=== PATIENT | female | born 1945 | race Caucasian/White ===

== ENCOUNTER 2016-10-08 18:30 | Outpatient (CLI) | payer MEDICARE, OTHER | END 2016-10-08 18:31 | disposition home or self-care (01) | DX: R79.89 Other specified abnormal findings of blood chemistry (principal); R68.89 Other general symptoms and signs; N39.0 Urinary tract infection, site not specified; J11.1 Influenza due to unidentified influenza virus with other respiratory manifestations ==

== ENCOUNTER 2017-03-16 18:30 | Outpatient (CLI) | payer MEDICARE ==
[2017-03-16 20:26] LABS: BILIRUBIN,URINE NEGATIVE (NEGATIVE); PH,URINE >=9.0 PH (5.0-7.5)
[2017-03-16 20:29] LABS: UA w/ MICROSCOPIC CHARGE YES
[2017-03-16 21:13] LABS: UR CULTURE IF IND INDICATED
== END 2017-03-16 18:31 | disposition home or self-care (01) ==
LOC: LAB.R 18:30
DX: N39.0 Urinary tract infection, site not specified (principal)
CPT/HCPCS: 81001; 81003; 87077; 87086

== ENCOUNTER 2017-03-25 07:10 | Outpatient (CLI) | payer MEDICARE ==
[2017-03-25 08:50] LABS: CALCIUM 9.8 mg/dL (8.5-10.3); CREATININE 0.9 mg/dL (0.4-1.0); POTASSIUM 4.5 mmol/L (3.5-5.0)
[2017-03-25 09:04] LABS: BASOPHILS # (AUTO) 0.1 10^3/uL (0.0-0.1); BASOPHILS % (AUTO) 1.2 %; EOSINOPHILS # (AUTO) 0.2 10^3/uL (0.0-0.7); EOSINOPHILS % (AUTO) 4.8 %; HCT - HEMATOCRIT 42.8 % (37.0-47.0); HGB - HEMOGLOBIN 14.2 g/dL (12.0-16.0); LYMPHOCYTES # (AUTO) 1.6 10^3/uL (1.5-3.5); LYMPHOCYTES % (AUTO) 37.1 %; MEAN CORPUSCULAR HEMOGLOBIN 29.8 pg (27.0-31.0); MEAN CORPUSCULAR HGB CONC 33.2 g/dL (32.0-36.0); MEAN CORPUSCULAR VOLUME 89.9 fL (81.0-99.0); MEAN PLATELET VOLUME 7.7 fL (7.9-10.8); MONOCYTES # (AUTO) 0.4 10^3/uL (0.0-1.0); MONOCYTES % (AUTO) 9.5 %; NEUTROPHILS # (AUTO) 2.1 10^3/uL (1.5-6.6); NEUTROPHILS % (AUTO) 47.4 %; NUCLEATED RED BLOOD CELLS AUTO 0.1 /100WBC; RED BLOOD COUNT 4.77 10^6/uL (4.20-5.40); RED CELL DISTRIBUTION WIDTH 13.5 % (12.0-15.0); UNCORRECTED WHITE BLOOD COUNT 4.4 x10^3/uL; WHITE BLOOD COUNT 4.4 x10^3/uL (4.8-10.8)
== END 2017-03-25 07:11 | disposition home or self-care (01) ==
LOC: LAB.R 07:10
DX: R79.89 Other specified abnormal findings of blood chemistry (principal); R68.89 Other general symptoms and signs; D64.9 Anemia, unspecified; N18.9 Chronic kidney disease, unspecified
CPT/HCPCS: 80048; 85025

== ENCOUNTER 2017-04-01 10:50 | Outpatient (CLI) | payer MEDICARE ==
[2017-04-01 11:23] LABS: BILIRUBIN,URINE NEGATIVE (NEGATIVE)
[2017-04-01 13:55] LABS: UR CULTURE IF IND NOT INDICATED; WBC,URINE 0-3 /HPF (0-5)
== END 2017-04-01 10:51 | disposition home or self-care (01) ==
LOC: LAB.R 10:50
PROVIDERS: ATTEND Family Medicine
DX: N39.0 Urinary tract infection, site not specified (principal)
CPT/HCPCS: 81001; 87086

== ENCOUNTER 2017-06-14 10:23 | Observation (INO) | payer MEDICARE, OTHER ==
[2017-06-14] MEDS ORDERED: DEXTROSE 5%-0.45% NACL 1,000 ML IV ONE (10:54)
--- NOTE | 2017-06-14 11:18 | ED Physician Documentation ---
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 71 f lives at [facility] hx strokes and afib on coumadin, blind, has baseline slurred speech found with AMS cool diaphoretic this AM FSBS was 29 per EMS, she was given food (not sure how given AMS) and then oral glucose and FSBS came up to about 80 but other sx persisted and had episodes of bradycardia down to 40 s hypotension no further hx available as pt is altered Review of Systems Unable to obtain: AMS PD PAST MEDICAL HISTORY - Past Medical History Cardiovascular: Atrial fibrillation Respiratory: None Neuro: CVA Endocrine/Autoimmune: Type 1 diabetes GI: None : Incontinence, Chronic bladder infection HEENT: Chronic vision loss Psych: None Musculoskeletal: Osteoarthritis Derm: None - Past Surgical History Past Surgical History: Yes General: 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: Hysterectomy, Breast implants HEENT: Cataracts - Present Medications Home Medications: Ambulatory Orders Medication Instructions Recorded Confirmed Brimonidine 0.15% Ophth Drops 1 drops LEFTEYE TID 01/19/13 04/09/16 [Alphagan P 0.15%] Cetirizine [ZyrTEC] 10 mg PO HS 01/19/13 04/09/16 Levothyroxine Sodium [Synthroid] 88 mcg PO DAILY 01/19/13 04/09/16 Timolol 0.5% Ophth Drops [Timoptic] 1 drops LEFTEYE BID 01/19/13 04/09/16 Warfarin [Coumadin] 0 mg PO SUMOWEFR 01/19/13 04/09/16 Warfarin [Coumadin] 5 mg PO DAILY 01/19/13 04/09/16 Subcutaneous Insulin Pump [Insulin 1 each MC DAILY 06/18/13 04/09/16 Pump] Docusate Sodium [Dss] 200 mg PO BID 03/09/14 04/09/16 Latanoprost 0.005% Ophth Drops 1 drop LEFTEYE QPM 06/20/14 04/09/16 [Xalatan Ophth Drops] Hydrocodone/Acetaminophen [[place] 1 - 2 tab PO Q6H PRN MDD PAIN 02/02/16 04/09/16 5-325 Tablet] Hydrocodone/Acetaminophen [[place] 1 tab PO QPM 02/02/16 04/09/16 5-325 Tablet] Multivitamin W/Minerals [Theragran 1 each PO DAILY 02/02/16 04/09/16 M] Potassium Chloride 20 meq PO TIDWM 02/02/16 04/09/16 Saccharomyces Boulardii [Florastor] 250 mg PO DAILY 03/20/16 04/09/16 Insulin Glargine,Hum.rec.anlog 10 - 18 unit SQ BID 04/09/16 04/09/16 [Lantus] Insulin Lispro [Humalog] 3 unit SUBQ BID 04/09/16 04/09/16 - Allergies Allergies/Adverse Reactions: Allergies Allergy/AdvReac Type Severity Reaction Status Date / Time codeine Allergy Unknown Hallucinati Verified 02/04/16 18:08 ons mites,pollen,horse, cat, Allergy Severe Respiratory Uncoded 02/04/16 18:08 feathers - Social History Does the pt smoke?: No Smoking Status: Never smoker Does the pt drink ETOH?: No Does the pt have substance abuse?: No - Immunizations Immunizations are current?: Yes - POLST Patient has POLST: Yes PD ED PE NORMAL - Vitals Vital signs reviewed: Yes - General General: No: Alert and oriented X 3 - HEENT HEENT: Other (blind per ) - Neck Neck: Supple, no meningeal sign - Cardiac Cardiac: RRR - Respiratory Respiratory: No respiratory distress, Clear bilaterally - Abdomen Abdomen: Soft, Non tender, Other (no insulin pump found to dc, erythema surround umbilicus) - Derm Derm: Other (erytehma around unblicus, [place] soles of feet with some erythema but no open foot/heel ulcers) - Extremities Extremities: Other ([place] edema, had comp socks on) - Neuro Neuro: No: Alert and oriented X 3 (arousable and answers basic questions now) Results - Vitals Vitals: Vital Signs - 24 hr 06/14/17 06/14/17 06/14/17 10:24 12:50 12:51 Temperature 35.5 C L 35.6 C L Heart Rate 61 68 Respiratory 13 14 Rate Blood Pressure 145/78 H 164/78 H O2 Saturation 97 96 Oxygen O2 Source Room air - EKG (time done) 1108 Rhythm: Atrial fibrillation Intervals: No: Normal OR Ischemia: Non specific changes - Labs Labs: Laboratory Tests 06/14/17 06/14/17 06/14/17 11:30 11:30 11:43 WBC 10.9 H RBC 5.24 Hgb 15.4 Hct 46.9 MCV 89.5 MCH 29.5 MCHC 32.9 RDW 14.3 Plt Count 126 L MPV 7.6 L Neut # 8.7 H Lymph # 1.2 L [place] # 0.8 Eos # 0.1 Baso # 0.0 Absolute Nucleated RBC 0.00 Nucleated RBCs 0.0 Whole Blood INR Sodium 137 Potassium 4.3 Chloride 103 Carbon Dioxide 27 Anion Gap 7.0 BUN 21 H Creatinine 1.0 Estimated GFR (MDRD) 55 L Glucose 86 Lactic Acid Calcium 9.9 Total Bilirubin 0.7 AST 18 ALT < 10 L Alkaline Phosphatase 85 Troponin I 0.05 Total Protein 6.9 Albumin 3.7 Globulin 3.2 Albumin/Globulin Ratio 1.2 Lipase 11 L Urine Color Urine Clarity Urine pH Ur Specific [place] Urine Protein Urine Glucose (UA) Urine Ketones Urine Occult Blood Urine Nitrite Urine Bilirubin Urine Urobilinogen Ur Leukocyte Esterase Urine RBC Urine WBC Ur Squamous Epith Cells Urine Bacteria Urine Casts Ur Microscopic Review Urine Culture Comments 06/14/17 06/14/17 06/14/17 11:43 13:15 14:15 WBC RBC Hgb Hct MCV MCH MCHC RDW Plt Count MPV Neut # Lymph # [place] # Eos # Baso # Absolute Nucleated RBC Nucleated RBCs Whole Blood INR 2.5 H Sodium Potassium Chloride Carbon Dioxide Anion Gap BUN Creatinine Estimated GFR (MDRD) Glucose Lactic Acid 1.8 Calcium Total Bilirubin AST ALT Alkaline Phosphatase Troponin I Total Protein Albumin Globulin Albumin/Globulin Ratio Lipase Urine Color YELLOW Urine Clarity HAZY Urine pH 6.[address] 1.015 Urine Protein NEGATIVE Urine Glucose (UA) NEGATIVE Urine Ketones NEGATIVE Urine Occult Blood SMALL H Urine Nitrite NEGATIVE Urine Bilirubin NEGATIVE Urine Urobilinogen 0.2 (NORMAL) Ur Leukocyte Esterase SMALL H Urine RBC 0-5 Urine WBC >25 H Ur Squamous Epith Cells NONE SEEN Urine Bacteria Many H Urine Casts 0-2 Course Granular Ur Microscopic Review INDICATED Urine Culture Comments INDICATED - Rads (name of study) CTH Radiology: See rad report (no acute process, 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) PD MEDICAL DECISION MAKING - ED course ED course: pt blood sugar better but still altered cannot take PO 2/2 AMS so started D5 no futher bradycardia noted in ER got CTH which showed no acute process (but possible meningioma), CXR also no acute, noted elev WBC and borderline lactate, eventually got cath UA and it was + by that time pt was more alert and talkative discussed with pt and her if she might be OK to go back to [facility] on antibiotics and freq FSBS but states she is significantly more confused and altered than her baseline and he does not feel safe to take her back to [facility] and says she has been admitted in the past for similar sx so spoke to hospitalist Dr Barry who agreed to admit Departure - Departure Disposition: ED Place in Observation Clinical Impression: Hypoglycemia, UTI (lower urinary tract infection) Altered mental status Qualifiers: Altered mental status type: unspecified Qualified Code(s): R41.82 - Altered mental status, unspecified Condition: Fair Discharge Date/Time: 06/14/17 16:03
[2017-06-14 11:50] LABS: BASOPHILS % (AUTO) 0.3 %; EOSINOPHILS # (AUTO) 0.1 10^3/uL (0.0-0.7); EOSINOPHILS % (AUTO) 0.9 %; HCT - HEMATOCRIT 46.9 % (37.0-47.0); HGB - HEMOGLOBIN 15.4 g/dL (12.0-16.0); LYMPHOCYTES # (AUTO) 1.2 10^3/uL (1.5-3.5); LYMPHOCYTES % (AUTO) 11.5 %; MEAN CORPUSCULAR HEMOGLOBIN 29.5 pg (27.0-31.0); MEAN CORPUSCULAR HGB CONC 32.9 g/dL (32.0-36.0); MEAN CORPUSCULAR VOLUME 89.5 fL (81.0-99.0); MEAN PLATELET VOLUME 7.6 fL (7.9-10.8); MONOCYTES # (AUTO) 0.8 10^3/uL (0.0-1.0); MONOCYTES % (AUTO) 7.2 %; NEUTROPHILS # (AUTO) 8.7 10^3/uL (1.5-6.6); NEUTROPHILS % (AUTO) 80.1 %; RED BLOOD COUNT 5.24 10^6/uL (4.20-5.40); RED CELL DISTRIBUTION WIDTH 14.3 % (12.0-15.0); UNCORRECTED WHITE BLOOD COUNT 10.9 x10^3/uL; WHITE BLOOD COUNT 10.9 x10^3/uL (4.8-10.8)
[2017-06-14 12:19] LABS: ALBUMIN/GLOBULIN RATIO 1.2 (1.0-2.2); BILIRUBIN,TOTAL 0.7 mg/dL (0.2-1.0); BUN - BLOOD UREA NITROGEN 21 mg/dL (6-20); CALCIUM 9.9 mg/dL (8.5-10.3); CARBON DIOXIDE - CO2 27 mmol/L (21-32); CHLORIDE 103 mmol/L (101-111); GFR - MDRD 55 (>89); GLUCOSE 86 mg/dL (70-100); LIPASE 11 U/L (22-51); POTASSIUM 4.3 mmol/L (3.5-5.0); SODIUM 137 mmol/L (135-145); TOTAL PROTEIN 6.9 g/dL (6.7-8.2)
--- NOTE | 2017-06-14 12:36 | CT Preliminary Report ---
Exam: CT Head W/O IMPRESSION: 1. No evidence of acute intracranial hemorrhage seen, with moderate senescent changes. 2. 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 [facility] SITE ID: [id number]
--- NOTE | 2017-06-14 12:39 | CT Report ---
EXAM: CT HEAD EXAM DATE: 06/14/2017 12:15 PM. CLINICAL HISTORY: Altered mental status on Coumadin. COMPARISON: Previous exam of 02/04/2016. TECHNIQUE: Multiaxial CT images were obtained from the foramen magnum to the vertex. IV contrast: Non e. Reformats: Coronal. In accordance with CT protocol optimization, one or more of the following dose reduction techniques w ere utilized for this exam: automated exposure control, adjustment of mA and/or KV based on patient s ize, or use of iterative reconstructive technique. FINDINGS: Parenchyma: No intraparenchymal hemorrhage. No evidence of mass, midline shift, or CT findings of acu te infarction. Garcia-white differentiation is distinct. Moderate periventricular hypoattenuation seen. Encephalomalacia is seen in the left frontal parietal region suggestive of old infarct. Extraaxial Spaces: Moderate atrophy present. There may be a right parasagittal meningioma measuring 4 .6 mm, best seen on image 20 of series 3. Ventricles: Normal in size and position. Sinuses: Imaged paranasal sinuses, orbits, and mastoids show no significant abnormality. Bones: No evidence of fracture or calvarial defect. Other: None. IMPRESSION: 1. No evidence of acute intracranial hemorrhage seen, with moderate senescent changes. 2. 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 [facility] Referring Provider Line: [phone] SITE ID: [id number]
[2017-06-14 13:21] LABS: BILIRUBIN,URINE NEGATIVE (NEGATIVE)
[2017-06-14 13:22] LABS: UA w/ MICROSCOPIC CHARGE YES
--- NOTE | 2017-06-14 13:27 | XRAY Preliminary Report ---
Exam: XR Chest 1 View IMPRESSION: Minimal central congestion without gross consolidation. [facility] SITE ID: [id number]
--- NOTE | 2017-06-14 13:29 | XRAY Report ---
EXAM: CHEST RADIOGRAPHY EXAM DATE: 06/14/2017 01:07 PM. CLINICAL HISTORY: Hypoglycemia AMS. COMPARISON: Previous exam of 03/09/2014. TECHNIQUE: 1 view. FINDINGS: Lungs/Pleura: Minimal central congestion seen without gross consolidation. Mediastinum: Within exam limitations, cardiomediastinal contour is normal. Other: None. IMPRESSION: Minimal central congestion without gross consolidation. [facility] Referring Provider Line: [phone] SITE ID: [id number]
[2017-06-14 13:30] LABS: UR CULTURE IF IND INDICATED; WBC,URINE >25 /HPF (0-5)
[2017-06-14] MEDS ORDERED: cefTRIAXone 1 GM in SODIUM CHLORIDE 0.9% MINIBAG 100 ML IV STA (13:48)
[2017-06-14] MEDS ORDERED: cefTRIAXone 1 GM VIAL ONE (14:09)
[2017-06-14] MEDS ORDERED: ONDANSETRON ODT 4 MG TABLET TL PRN (14:17)
[2017-06-14] MEDS ORDERED: SODIUM CHLORIDE FLUSH 0.9% 10 ML SYRINGE IVP PRN (14:17)
[2017-06-14] MEDS ORDERED: ONDANSETRON 4 MG/2 ML VIAL IVP PRN (14:17)
[2017-06-14] MEDS ORDERED: ACETAMINOPHEN 325 MG TABLET PO PRN (14:17)
[2017-06-14] MEDS ORDERED: HYDROcod/ACETAM 5/325 MG TABLET PO PRN (14:21)
[2017-06-14] MEDS: POTASSIUM CHLORIDE 20 MEQ TABLET PO SCH (17:35)
[2017-06-14] MEDS: SODIUM CHLORIDE 0.9% 1,000 ML IV SCH (17:36)
[2017-06-14] MEDS: NYSTATIN CREAM 15 GM TUBE TOP SCH (20:32)
[2017-06-14] MEDS: INSULIN ASPART 300 UNIT/3 ML PEN SUBQ SCH (20:35)
[2017-06-14] MEDS ORDERED: LATANOPROST 0.005% OPHTH DROPS ONE (20:43)
[2017-06-14] MEDS ORDERED: BRIMONIDINE 0.15% OPHTH DROPS 5 ML ONE (20:49)
[2017-06-14] MEDS ORDERED: TIMOLOL 0.5% OPHTH DROPS ONE (20:50)
[2017-06-14] MEDS: BRIMONIDINE 0.15% LEFTEYE SCH (20:53)
[2017-06-14] MEDS: TIMOLOL 0.5% LEFTEYE SCH (20:53)
[2017-06-14] MEDS ORDERED: HYDROcod/ACETAM 5/325 MG TABLET PO SCH (21:00)
[2017-06-14] MEDS ORDERED: INSULIN GLARGINE 300 UNIT/3 ML PEN SUBQ SCH (21:00)
[2017-06-14] MEDS ORDERED: CETIRIZINE 10 MG TABLET PO SCH (21:00)
[2017-06-14] MEDS ORDERED: LATANOPROST 0.005% LEFTEYE SCH (21:00)
[2017-06-14] MEDS: SODIUM CHLORIDE FLUSH 0.9% 10 ML SYRINGE IVP SCH (23:32)
--- NOTE | 2017-06-15 00:12 | HISTORY & PHYSICAL EXAMINATION ---
DATE OF ADMISSION: 06/14/2017 PRIMARY CARE PROVIDER: Jaja Kuhn DO. ADMITTING PROVIDER: Emma Barry MD. CHIEF COMPLAINT: Low blood sugar with altered mental status. HISTORY OF PRESENT ILLNESS: The patient is a resident of [facility] . She has lived there as a consequence of her strokes and Charcot joints. She has dysarthria, ataxi a, is unable to ambulate because of the deformities of her right ankle. She initially went from walki ng in a walker to being in a scooter by 2011. With her second stroke in 2011 she is unable to live at home. Her has his own health issues and she has been living at [facility]. She was b rought in by ambulance from [facility] because she was found with altered mental status, cool , diaphoretic. Fasting blood sugar was 29. Somehow they gave her food and then oral glucose and fasti ng glucose came up to about 80. The patient was altered and Dr. Baron gave her more sugar. CT of the head did not show any acute bleeding. Two hours later, the patient is now awake, back to her baselin e. Because of her stroke she has a baseline slow slightly slurred speech with psychomotor delay. It c an sometimes be difficult to get a history out of but when her came to evaluate his , he felt that she was still not back at baseline, especially because she started having some shakes but h e felt that she was still more confused and altered than her baseline and did not feel safe for her t o go back to [facility]. As such, she will be placed in observation to see if she can improve over the n ext 24 hours and then return to [facility]. This unfortunate woman has a history of neurogenic bladder with frequent UTIs. In February 2017 she had Proteus, in August 2016 she had enterococcus, March 2016 enterococcus and staph, February 2016 enterococ cus, January 2015 twice was enterococcus and January 2014 with Escherichia coli. PAST MEDICAL HISTORY: 1. Chronic atrial fibrillation with a CHADS2-VASc score of 6 and is anticoagulated on Coumadin. She p resented in November 2011 because of new acute weakness and fatigue. She was found to be in new onset fi brillation. While she did have an echo with a 2012 visit that is not part of the electronic medical r ecord. 2. Type Diabetes mellitus type 2, controlled, with complications of peripheral neuropathy, nephropath y, and retinopathy. She has developed a right Charcot joint in the right ankle. She has had a right d iabetic foot ulcers as most recently as August 2016 on the plantar surface. 3. 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 In June 2013 she had been increasing her Coumadin use. Unclear why and felt was probably to have a supratherapeutic INR, which resulted i n a spontaneous retinal hemorrhage. Her Coumadin was stopped and she had a vitrectomy and tPA. A week later continued to have hemorrhage and had another injection of tPA. She also has glaucoma. 4. Generalized osteoarthritis. 5. History of strokes. The first stroke in 2001 had no residual. However, by then she was already obe se, suffering the fact the immobility and getting less mobile. In 2011, she presented with sudden dys arthria. Between 2011 and now, she has had increasing ataxia, a neurogenic bladder. She went from [facility] a cane to a walker and then a scooter by 2011. Her could no longer take care of her, and s he has been at a [facility] facility since that time. 6. Hypothyroidism. 7. Hypertension. 8. Chronic kidney disease stage 2 to 3. 9. G2, P2, status post hysterectomy. 10. Chronic UTIs as above. 11. Allergic rhinitis. 12. History of appendectomy. 13. History of breast implants. 14. History of cataracts with bilateral cataract removal. 15. History of gastrointestinal bleeds. She had nausea and coffee ground emesis in February 2015 and was admitted. At that time she was found to be dehydrated from diarrhea and then to be in DKA. She was ag ain admitted for coffee ground emesis in February 2016. This time it was also with sepsis, UTI, and supra therapeutic INR. 16. Clostridium difficile diarrhea. She was admitted in January 2016 for Clostridium difficile diarrhea a nd admitted again later that month for dehydration. 17. Left leg cellulitis with hospitalization in July 2013. She was brought to the hospital after stopping her Coumadin for the vitreous hemorrhage described in July 03, 2013. Cellulitis and swell ing had developed in the left leg. She was initially treated as outpatient antibiotic. One day she wa s stepping and heard a cracking in her ankle and she went to [facility]. She was noted to have w orsening cellulitis and started on outpatient antibiotics and admitted to us. However, the x-ray for the ankle showed a fracture and she was transferred to . While at , they identified nonocclusive DVTs. ALLERGIES: SHE IS ALLERGIC TO CODEINE AND MULTIPLE ENVIRONMENTAL ALLERGENS SUCH DUST MITES, POLLEN , HORSE DANDER, CATS, FEATHERS, ETC. MEDICATIONS: List from [facility] is: 1. Brimonidine ophthalmic drops 0.15% 1 drop left eye. 2. Coumadin 2.5 mg tablet. Unknown doses at this time. Will have to verify at [facility] and will also ask pharmacy. 3. Colace 200 mg p.o. b.i.d. 4. Florastor 250 mg p.o. daily. 5. Insulin pump. 6. Lantus 10-18 units subcu depending on sugar. 7. Hydrocodone with acetaminophen 1-2 tablets every 6 hours as needed for moderate pain, 1 tablet only in the evening fixed dose. 8. Potassium 20 mEq t.i.d. 9. Synthroid 88 mcg daily. 10. Multivitamin tablet daily. 11. Timolol ophthalmic solution 0.5% 1 drop left eye daily. 12. Latanoprost opthalmic solution 1 drop left eye daily. 13. Zyrtec 10 mg p.o. at bedtime. SOCIAL HISTORY: She has been to her for 46 years. They have not lived together since she was placed in a [facility] facility in approximately July 2012. She has 2 children. Betsycorrie han smoked, never drank. FAMILY HISTORY: Brother at age 8 of leukemia, one brother has diabetes and her daughter has diab etes. REVIEW OF SYSTEMS: Unobtainable at this time. While the patient is now awake, able to speak, there is psychomotor slowing that it is very difficult to get. Overall the impression I get is of a morbidly obese female with psychomotor retardation from previous stroke, who is mainly wheelchair bound. She i s completely dependent for activities of daily living at [facility]. She is unable to ambulat e very much because of weight, stroke residual, vision and right ankle pain. She has frequent UTIs. R epetitive perseveration. PHYSICAL EXAMINATION: VITAL SIGNS: On examination, she is seen in the emergency room. Unfortunately, her is not wit h her at this time. She tells me that he has left to go get something to eat. Temperature was 35.5, p ulse is 68, blood pressure 164/78, respirations 14, 96% on room air. GENERAL: She is morbidly obese, lying comfortably in the gurney in room 2 in the emergency room. Ever ything about her is very, very slow with delayed psychomotor movement and speech. She is lying supine in the gurney, and appears calm and in no acute distress. She is not happy to be admitted and tells me that no one should ever be happy about coming into the hospital. HEAD AND NECK: Her pupils are small but reactive to light. The left eye has mild scleral injection of unknown cause, but there is no icterus. Oral mucosa pink and moist. No dryness evident. As long as I look at her directly in the face and she watches me she does not appear to be deaf. Neck is supple. Because of her positioning and difficulty moving her I am not able to assess for JVD, but I do not fe el a goiter and I do not hear a bruit. LUNGS: Coarse upper airway sounds, slow unlabored shallow without crackles, rhonchi, wheezing, or inc reased respiratory effort. CARDIOVASCULAR: PMI is normally placed and I am hearing a regular rate and rhythm, not irregular. No murmur audible. No gallop. ABDOMEN: Obese, soft, nontender with no organomegaly. Quiet, hypoactive bowel sounds. No distention, no rebound or guarding. She has Jennifer in her umbilicus and also when you lift up her pannus in the intertriginous folds. EXTREMITIES: 2+ edema on the right ankle and 1+ edema on the left. Right ankle has chronic deformitie s of Charcot joint. NEUROLOGIC: Neurologically she is alert to person and place. She does not underst and why she was brought here. She does not remember being hypoglycemic and she certainly does not thi nk that she is sick enough to be here right now. When I explained to her that she was shaking when sh e woke up and that she is at risk for UTI she acknowledges that. She can follow 1-step commands, tiki h is give me your right hand or move your left foot, but it takes a very long time for her to process that information and then do it. Right hand dehydrating press operator is weaker than the left hand dehydrating press operator. She is unable to really lift her leg off the bed with the right leg, but is able with the left leg up. On light touch using a cotton swab she is unable to feel me touching the bottoms of her feet or the tops of her fee t. She does feel slight pinprick when I used needles. STUDIES: Sodium is 137, potassium 4.3, BUN 21, creatinine 1. This is her baseline with a BUN of 19-22 and creatinine of 0.9. Random glucose was initially 86. Lactic acid 1.8. Liver enzymes normal. Tropo ronny less than 0.05. Lipase 11. CBC shows a white cell count of 10.9. 3.8 to 4.4 for the last year. Hemoglobin 15.4, hematocrit 46.7, platelets are 126. In the past, platelets have been in the 1 40s to 150s and as low as 106 in September 2016. INR is 2.5. Urinalysis has a small amount of occult bl ood, small amount of leukocyte esterase, greater than 25 white cells. Many bacteria. No squamous epit helial cells. Culture is indicated. IMAGING: Chest x-ray today in the ER has minimal central congestion without gross consolidation. Head CT today in the ER has no acute intraparenchymal hemorrhage, no evidence of mass or midline shif t. Encephalomalacia is seen in the left frontal parietal region suggestive of an old infarct. Moderat e atrophy in the extraaxial spaces with right parasagittal meningioma measuring 4.6 mm. ASSESSMENT/PLAN: 1. Acute metabolic encephalopathy. Attributed to hypoglycemia this morning, now resolved. However, th ere may be a question of infection. The patient has no fever, only mildly elevated white cell count. Urine is positive. We will place in observation. Start IV antibiotics. See if she responds enough to return to her [facility] facility tomorrow. 2. Urinary tract infection. History of neurogenic bladder and frequent UTIs with microbiology as disc ussed above. Since her last enterococcus infection in August 2016 it was sensitive to ampicillin, C IPRO, and Levaquin. She then had Proteus February 2017 and that was sensitive to Ancef, cefepime, ceftria xone. At this time, we will use ceftriaxone. 3. Type 2 diabetes mellitus. Controlled by history. However, with severe complications as above of pe ripheral neuropathy, nephropathy, and retinopathy and Charcot joint. Will continue insulin pump while here. Again, I plan only observation status and hopefully returns tomorrow. 4. Stroke residual of psychomotor retardation, verbal dysarthria, slight right body weakness. This is baseline for her. However, feels it slightly worse than usual. Hopefully, her psychomotor re tardation and strength will return to baseline with overnight hydration and treatment of possible inf ection. 5. Hypertension. Currently controlled. Resume usual medications. 6. DO NOT RESUSCITATE status. This is per the patient. There is a POLST form in Dr. Kuhn's office from 2012, but I am unable to access what it says. 7. Deep venous thrombosis prophylaxis. She is already on Coumadin with adequate INR. JOB #: [id number] EXT JOB #:[id number]
[2017-06-15] MEDS ORDERED: cefTRIAXone 1 GM in SODIUM CHLORIDE 0.9% MINIBAG 100 ML IV ONE (01:00)
[2017-06-15] MEDS ORDERED: cefTRIAXone 1 GM VIAL IVP ONE (01:00)
[2017-06-15] MEDS: SODIUM CHLORIDE 0.9% 1,000 ML IV SCH (02:14)
[2017-06-15] MEDS: BRIMONIDINE 0.15% LEFTEYE SCH ×2 (05:40→14:04)
[2017-06-15] MEDS: SODIUM CHLORIDE FLUSH 0.9% 10 ML SYRINGE IVP SCH ×2 (06:31→14:04)
[2017-06-15] MEDS ORDERED: LEVOTHYROXINE 88 MCG TABLET PO SCH (07:00)
[2017-06-15 07:27] LABS: HEMOGLOBIN A1C 0.79 g/dL
[2017-06-15] MEDS ORDERED: MULTIVITAMIN W/MINERALS TABLET PO SCH (08:00)
[2017-06-15] MEDS ORDERED: INSULIN GLARGINE 300 UNIT/3 ML PEN SUBQ SCH (08:00)
[2017-06-15] MEDS: INSULIN ASPART 300 UNIT/3 ML PEN SUBQ SCH ×2 (08:07→12:07)
[2017-06-15] MEDS: NYSTATIN CREAM 15 GM TUBE TOP SCH (08:09)
[2017-06-15] MEDS: POTASSIUM CHLORIDE 20 MEQ TABLET PO SCH ×2 (08:09→12:07)
[2017-06-15] MEDS: TIMOLOL 0.5% LEFTEYE SCH (08:21)
[2017-06-15] MEDS ORDERED: SACCHAROMYCES BOULARDII 250 MG CAPSULE PO SCH (09:00)
[2017-06-15] MEDS ORDERED: cefTRIAXone 1 GM in SODIUM CHLORIDE 0.9% MINIBAG 100 ML IV SCH (09:00)
[2017-06-15] MEDS ORDERED: POLYETHYLENE GLYCOL 3350 17 GM PACKET PO SCH (09:00)
[2017-06-15 10:12] LABS: BASOPHILS # (AUTO) 0.1 10^3/uL (0.0-0.1); BASOPHILS % (AUTO) 0.9 %; EOSINOPHILS # (AUTO) 0.1 10^3/uL (0.0-0.7); EOSINOPHILS % (AUTO) 1.7 %; HCT - HEMATOCRIT 43.4 % (37.0-47.0); HGB - HEMOGLOBIN 14.2 g/dL (12.0-16.0); LYMPHOCYTES # (AUTO) 1.3 10^3/uL (1.5-3.5); LYMPHOCYTES % (AUTO) 18.3 %; MEAN CORPUSCULAR HEMOGLOBIN 29.4 pg (27.0-31.0); MEAN CORPUSCULAR HGB CONC 32.8 g/dL (32.0-36.0); MEAN CORPUSCULAR VOLUME 89.5 fL (81.0-99.0); MONOCYTES # (AUTO) 0.7 10^3/uL (0.0-1.0); MONOCYTES % (AUTO) 9.6 %; NEUTROPHILS # (AUTO) 4.8 10^3/uL (1.5-6.6); NEUTROPHILS % (AUTO) 69.5 %; RED BLOOD COUNT 4.85 10^6/uL (4.20-5.40); UNCORRECTED WHITE BLOOD COUNT 6.9 x10^3/uL; WHITE BLOOD COUNT 6.9 x10^3/uL (4.8-10.8)
[2017-06-15 10:20] LABS: CALCIUM 9.5 mg/dL (8.5-10.3); POTASSIUM 4.4 mmol/L (3.5-5.0)
[2017-06-15] MEDS ORDERED: WARFARIN 5 MG TABLET PO SCH (14:00)
--- NOTE | 2017-06-15 14:44 | Discharge Plan ---
Discharge Plan Disposition: 01 Home, Self Care Diet: Regular Activity Restrictions: Activity as Tolerated Shower Restrictions: No Driving Restrictions: No Weight Bearing: Toe Touch Additional Instructions or Follow Up instructions: The CT of your head did not show any bleeding. But the radiologist suspects you may have a very small tumor called a meningioma - please follow up with your PMD for further evaluation No Smoking: If you smoke, Please STOP! Call for help.
[2017-06-15 15:48] VITALS: BP 146/66
--- NOTE | 2017-06-15 18:53 | DISCHARGE SUMMARY ---
DATE OF ADMISSION: 06/14/2017 06/14/2017. DATE OF DISCHARGE: 06/15/2017 06/15/2017. HPI: This is a 71-year-old white female with a history of prior strokes, chronic atrial fibrillation on Coumadin, diabetes on insulin, chronic blindness from retinopathy, retinal hemorrhages and glaucoma, severe osteoarthritis. The patient presented with shakes and was diagnosed with a recurrent UTI as well as hypoglycemia. She was placed in observation for treatment and stabilization. HOSPITAL COURSE AND DISCHARGE DIAGNOSES: 1. Urinary tract infection. The patient was previously cultured and sensitivities were known from her UTI in 2016 and from earlier this year. Ceftriaxone was used IV, which the cultures showed sensitivities to. The patient did notice that she felt better after 24 hours. She was discharged on new Keflex 500 mg p.o. b.i.d. for an additional 9 days. 2. Prior strokes and slurred speech. The patient was at her baseline on admission and at the time of discharge and her preadmission medications were continued. 3. Chronic atrial fibrillation. The patient's Coumadin was continued. The patient's heart rate was controlled on current meds. 4. Diabetes. The patient was placed on sliding insulin scale for coverage of high glucoses. Otherwise, she was discharged on her preadmission insulin, both long-acting and short-acting. 5. Chronic blindness. All of her management was continued during this admission for her glaucoma. 6. Hypothyroidism. Her medication was continued throughout this admission. 7. Hypertension. The blood pressure was under good control and her preadmission medications were continued. CONDITION AT DISCHARGE: Fair. DISCHARGE MEDICATIONS AT TIME OF DISCHARGE: 1. Tylenol with codeine p.r.n.. 2. Alphagan eyedrops. 3. Coumadin 7.5 mg p.o. daily. 4. Colace 250 mg p.o. b.i.d.. 5. Florastor 250 mg p.o. daily. 6. Humalog insulin 3 Units subcutaneous before meals. 7. Lantus insulin 18 Units subcutaneously b.i.d.. 8. Potassium 20 mEq p.o. t.i.d.. 9. Protonix 40 mg p.o. daily. 10. Synthroid 88 mcg p.o. daily. 11. Theragran multivitamin p.o. daily. 12. Timoptic eyedrops. 13. Trazodone 100 mg p.o. at evening p.r.n. sleep. 14. Xalatan eyedrops. 15. Zolpidem 5 mg p.o. at bedtime p.r.n. sleep. 16. Zyrtec 10 mg p.o. at bedtime. 17. Keflex 500 mg p.o. b.i.d. for an additional 9 days. Time for completion of discharge orders and summary and the patient evaluation and education: 20 minutes. JOB #: [id number] EXT JOB #:[id number] MTDD
== END 2017-06-15 15:55 ==
LOC: EDUNIT# → ED 10:23 → OBS 14:17
PROVIDERS: ADMIT Specialist; ATTEND Internal Medicine
DX: N39.0 Urinary tract infection, site not specified (principal); I69.922 Dysarthria following unspecified cerebrovascular disease; I48.2 Chronic atrial fibrillation; Z79.01 Long term (current) use of anticoagulants; E11.649 Type 2 diabetes mellitus with hypoglycemia without coma; E11.319 Type 2 diabetes mellitus with unspecified diabetic retinopathy without macular edema; E11.39 Type 2 diabetes mellitus with other diabetic ophthalmic complication; H40.9 Unspecified glaucoma; H35.60 Retinal hemorrhage, unspecified eye; Z79.4 Long term (current) use of insulin; H54.0 Blindness, both eyes; E03.9 Hypothyroidism, unspecified; I12.9 Hypertensive chronic kidney disease with stage 1 through stage 4 chronic kidney disease, or unspecified chronic kidney disease; E11.610 Type 2 diabetes mellitus with diabetic neuropathic arthropathy; E11.42 Type 2 diabetes mellitus with diabetic polyneuropathy; E11.22 Type 2 diabetes mellitus with diabetic chronic kidney disease; N18.3 Chronic kidney disease, stage 3 (moderate); E11.40 Type 2 diabetes mellitus with diabetic neuropathy, unspecified; N31.9 Neuromuscular dysfunction of bladder, unspecified; M19.90 Unspecified osteoarthritis, unspecified site; Z87.440 Personal history of urinary (tract) infections; Z79.891 Long term (current) use of opiate analgesic; Z79.899 Other long term (current) drug therapy; E66.01 Morbid (severe) obesity due to excess calories; Z68.41 Body mass index [BMI] 40.0-44.9, adult; D32.0 Benign neoplasm of cerebral meninges; Z99.3 Dependence on wheelchair; Z66 Do not resuscitate; B96.89 Other specified bacterial agents as the cause of diseases classified elsewhere
CPT/HCPCS: 36415; 51702; 70450; 71010; 80048; 80053; 81001; 83036; 83605; 83690; 84484; 85025; 85610; 87040; 87077; 87086; 93005; 96361; 96365; 96366; 99284; 99285; A9270; G0378; J1815; 81003

== ENCOUNTER 2017-06-14 10:30 | Outpatient (CLI) | payer MEDICARE, OTHER | END 2017-06-14 10:31 | disposition critical access hospital (66) | LOC: EMS 10:30 | PROVIDERS: ATTEND Surgery | DX: E16.2 Hypoglycemia, unspecified (principal); H53.40 Unspecified visual field defects | CPT/HCPCS: A0425; A0427 ==

== ENCOUNTER 2017-08-17 08:30 | Outpatient (CLI) | payer MEDICARE, OTHER ==
[2017-08-17 11:00] LABS: CALCIUM 10.2 mg/dL (8.5-10.3); CREATININE 0.9 mg/dL (0.4-1.0); POTASSIUM 4.5 mmol/L (3.5-5.0)
== END 2017-08-17 08:31 | disposition home or self-care (01) ==
LOC: LAB.R 08:30
DX: E11.9 Type 2 diabetes mellitus without complications (principal)
CPT/HCPCS: 80048

== ENCOUNTER 2017-08-28 21:07 | Outpatient (CLI) | payer MEDICARE, OTHER | END 2017-08-28 21:08 | disposition critical access hospital (66) | LOC: EMS 21:07 | PROVIDERS: ATTEND Surgery | DX: R41.82 Altered mental status, unspecified (principal); R53.1 Weakness | CPT/HCPCS: A0425; A0429 ==

== ENCOUNTER 2017-08-28 21:31 | Emergency (ER) | payer MEDICARE, OTHER ==
[2017-08-28 22:17] LABS: BASOPHILS % (AUTO) 0.4 %; EOSINOPHILS % (AUTO) 0.1 %; HCT - HEMATOCRIT 44.4 % (37.0-47.0); HGB - HEMOGLOBIN 14.4 g/dL (12.0-16.0); LYMPHOCYTES # (AUTO) 0.5 10^3/uL (1.5-3.5); LYMPHOCYTES % (AUTO) 3.6 %; MEAN CORPUSCULAR HGB CONC 32.3 g/dL (32.0-36.0); MEAN CORPUSCULAR VOLUME 89.7 fL (81.0-99.0); MEAN PLATELET VOLUME 8.6 fL (7.9-10.8); MONOCYTES # (AUTO) 0.6 10^3/uL (0.0-1.0); NEUTROPHILS # (AUTO) 11.6 10^3/uL (1.5-6.6); NEUTROPHILS % (AUTO) 90.9 %; RED BLOOD COUNT 4.94 10^6/uL (4.20-5.40); UNCORRECTED WHITE BLOOD COUNT 12.8 x10^3/uL; WHITE BLOOD COUNT 12.8 x10^3/uL (4.8-10.8)
[2017-08-28 22:24] LABS: ALBUMIN/GLOBULIN RATIO 1.1 (1.0-2.2); BILIRUBIN,TOTAL 0.8 mg/dL (0.2-1.0); CALCIUM 10.6 mg/dL (8.5-10.3); CREATININE 1.1 mg/dL (0.4-1.0); POTASSIUM 4.3 mmol/L (3.5-5.0); TOTAL PROTEIN 7.3 g/dL (6.7-8.2)
[2017-08-28 22:32] LABS: PLATELET ESTIMATE, MANUAL NORMAL (130-450,000) (NORMAL); PLATELET MORPHOLOGY NORMAL APPEARANCE (NORMAL)
--- NOTE | 2017-08-28 23:21 | CT Preliminary Report ---
Exam: CT HEAD W/O IMPRESSION: Stable head CT. Generalized age-related cortical atrophic changes without evidence of acu te intracranial abnormality. [facility] SITE ID: [id number]
--- NOTE | 2017-08-28 23:23 | CT Report ---
EXAM: CT HEAD EXAM DATE: 08/28/2017. CLINICAL HISTORY: Lethargy, found down COMPARISON: 06/14/2017. TECHNIQUE: Multiaxial CT images were obtained from the foramen magnum to the vertex. Reformats: Coron al. IV contrast: None. In accordance with CT protocol optimization, one or more of the following dose reduction techniques w ere utilized for this exam: automated exposure control, adjustment of mA and/or KV based on patient s ize, or use of iterative reconstructive technique. FINDINGS: Parenchyma: No intraparenchymal hemorrhage. No evidence of mass, midline shift, or CT findings of acu te infarction. There is a remote left cerebellar infarct. Diffuse chronic microangiopathic white marcelo er changes are evident. Extraaxial Spaces: Normal for age. No subdural or epidural collections identified. Ventricles: The ventricles and cortical sulci are enlarged, consistent with age-related tissue loss. Sinuses and orbits: Imaged paranasal sinuses, orbits, and mastoids show no significant abnormality. Bones: No evidence of fracture or calvarial defect. Other: None. IMPRESSION: Stable head CT. Generalized age-related cortical atrophic changes without evidence of acu te intracranial abnormality. [facility] Referring Provider Line: [phone] SITE ID: [id number]
[2017-08-29 00:08] LABS: BILIRUBIN,URINE NEGATIVE (NEGATIVE); PH,URINE 6.5 PH (5.0-7.5)
--- NOTE | 2017-08-29 00:08 | XRAY Preliminary Report ---
Exam: XR HIP W/PELVIS 2-3V RT IMPRESSION: No acute osseous abnormality demonstrated. [facility] SITE ID: [id number]
--- NOTE | 2017-08-29 00:11 | XRAY Report ---
EXAM: RIGHT HIP AND PELVIS RADIOGRAPHY EXAM DATE: 08/28/2017 10:57 PM. HISTORY: Fall, right hip pain COMPARISONS: 03/20/2016 CT abdomen and pelvis TECHNIQUE: 1 view of the pelvis and 2 view of the hip. FINDINGS: Bones: No acute displaced fracture. Joints: There is mild bilateral hip joint degenerative change. Lower lumbar degenerative change. Soft Tissues: No significant soft tissue swelling. Large amount of retained fecal material. IMPRESSION: No acute osseous abnormality demonstrated. [facility] Referring Provider Line: [phone] SITE ID: [id number]
[2017-08-29 00:12] LABS: UA CHARGE (STRIP ONLY) YES; UR CULTURE IF IND NOT INDICATED
--- NOTE | 2017-08-29 00:21 | ED Physician Documentation ---
PD HPI ALTERED MENTAL STATUS - Stated complaint Stated Complaint: CONFUSION - Chief complaint Chief Complaint: Neuro - History obtained from History obtained from: Patient, EMS - History of Present Illness Timing - onset: Today Timing - details: Gradual onset, Still present Quality / character: Confused Associated symptoms: No: Fever, Headache Contributing factors: Anticoagulated Basline status: Alert and oriented X 3, Confused Similar symptoms before: Work up / diagnostics, Treatment Recently seen: Not recently seen - Additional information Additional information: Patient is a 71 year old [facility] patient who is brought in for altered mental status. According to ems and patient's family, earlier today (about 5 hours prior) they were moving the patient between bed and chair and the patient fell. Patient denied any complaints at that time. retirement staff stated that later this afternoon, patient complained of left sided hip pain and seemed more confused. They stated that the patient is on blood thinners and has had utis in the past so they sent the patient in for evaluation. Patient had received her nightly meds, including trazadone and melatonin. 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 : Incontinence, Chronic bladder infection HEENT: Chronic vision loss Psych: None Musculoskeletal: Osteoarthritis Derm: None - Past Surgical History Past Surgical History: Yes General: Appendectomy /NEONATAL PEDIATRIC NURSE: Hysterectomy, Breast implants HEENT: Cataracts - Present Medications Home Medications: Ambulatory Orders Medication Instructions Recorded Confirmed Brimonidine 0.15% Ophth Drops 1 drops LEFTEYE TID 01/19/13 06/15/17 [Alphagan P 0.15% Ophth Drops] Cetirizine [ZyrTEC] 10 mg PO HS 01/19/13 06/15/17 Levothyroxine Sodium [Synthroid] 88 mcg PO DAILY 01/19/13 06/15/17 Timolol 0.5% Ophth Drops [Timoptic 1 drops LEFTEYE BID 01/19/13 06/15/17 0.5% Ophth Drops] Warfarin [Coumadin] 2.5 mg PO TUTH 01/19/13 06/15/17 Warfarin [Coumadin] 5 mg PO SUMOWEFRSA 01/19/13 06/15/17 Subcutaneous Insulin Pump [Insulin 1 each MC DAILY 06/18/13 06/15/17 Pump] Docusate Sodium [Dss] 250 mg PO BID PRN 03/09/14 06/15/17 Latanoprost 0.005% Ophth Drops 1 drop LEFTEYE QPM 06/20/14 06/15/17 [Xalatan Ophth Drops] Hydrocodone/Acetaminophen [[place] 1 - 2 tab PO Q6H PRN MDD PAIN 02/02/16 06/15/17 5-325 Tablet] Multivitamin W/Minerals [Theragran 1 each PO DAILY 02/02/16 06/15/17 M] Potassium Chloride 20 meq PO TIDWM 02/02/16 06/15/17 Saccharomyces Boulardii [Florastor] 250 mg PO DAILY 03/20/16 06/15/17 Insulin Glargine,Hum.rec.anlog 18 unit SQ BID 04/09/16 06/15/17 [Lantus] Insulin Lispro [Humalog] 3 unit SUBQ AC 04/09/16 06/15/17 Cephalexin [Keflex] 500 mg PO BID #18 capsule 06/15/17 Pantoprazole [Protonix] 40 mg PO DAILY 06/15/17 06/15/17 Trazodone HCl 100 mg PO DAILY PM PRN 06/15/17 06/15/17 Zolpidem Tartrate 5 mg PO DAILY PM PRN 06/15/17 06/15/17 - Allergies Allergies/Adverse Reactions: Allergies Allergy/AdvReac Type Severity Reaction Status Date / Time codeine Allergy Unknown Hallucinati Verified 08/28/17 21:43 ons mites,pollen,horse, cat, Allergy Severe Respiratory Uncoded 08/28/17 21:43 feathers - Social History Does the pt smoke?: No Smoking Status: Never smoker Does the pt drink ETOH?: No Does the pt have substance abuse?: No - Immunizations Immunizations are current?: Yes - POLST Patient has POLST: Yes PD ED PE NORMAL - Vitals Vital signs reviewed: Yes - HEENT HEENT: Atraumatic, Dentition benign - Neck Neck: Supple, no meningeal sign - Cardiac Cardiac: RRR, No murmur - Respiratory Respiratory: No respiratory distress - Abdomen Abdomen: Soft, Non distended - Derm Derm: Normal color, No rash - Neuro Neuro: No motor deficit Eye Opening: Spontaneous Motor: Obeys Commands Verbal: Confused GCS Score: 14 PD ED PE EXPANDED - HEENT HEENT: Atraumatic, Dry mucous membranes - Extremities Extremities: Right hip (tenderness to palpation, no gross deformity) - Neuro Neuro: Confused, Normal motor - GCS Eye Opening: Spontaneous Motor: Obeys Commands Verbal: Confused Total: 14 Results - Vitals Vitals: Vital Signs - 24 hr 08/28/17 08/28/17 08/28/17 21:38 21:51 23:00 Temperature 36.5 C 36.4 C L Heart Rate 82 72 88 Respiratory 18 18 18 Rate Blood Pressure 131/74 H 131/74 H 141/74 H O2 Saturation 100 92 94 08/29/17 00:07 Temperature Heart Rate 95 Respiratory 16 Rate Blood Pressure 142/81 H O2 Saturation 93 Oxygen O2 Source Room air - Labs Labs: Laboratory Tests 08/28/17 08/28/17 08/28/17 00:05 21:44 21:44 WBC 12.8 H RBC 4.94 Hgb 14.4 Hct 44.4 MCV 89.7 MCH 29.0 MCHC 32.3 RDW 14.0 Plt Count TNP MPV 8.6 Neut # 11.6 H Lymph # 0.5 L [place] # 0.6 Eos # 0.0 Baso # 0.0 Absolute Nucleated RBC 0.01 Nucleated RBC % 0.0 Manual Slide Review Indicated Platelet Estimate NORMAL (130-450,000) Platelet Morphology NORMAL APPEARANCE RBC Morph Micro Appear NORMAL APPEARANCE Sodium 137 Potassium 4.3 Chloride 96 L Carbon Dioxide 29 Anion Gap 12.0 BUN 23 H Creatinine 1.1 H Estimated GFR (MDRD) 49 L Glucose 252 H Calcium 10.6 H Total Bilirubin 0.8 AST 21 ALT 16 Alkaline Phosphatase 101 Total Protein 7.3 Albumin 3.9 Globulin 3.4 Albumin/Globulin Ratio 1.1 Lipase 12 L Urine Color YELLOW Urine Clarity CLEAR Urine pH 6.5 Ur Specific [place] 1.015 Urine Protein NEGATIVE Urine Glucose (UA) 250 H Urine Ketones NEGATIVE Urine Occult Blood TRACE-INTA Urine Nitrite NEGATIVE Urine Bilirubin NEGATIVE Urine Urobilinogen 0.2 (NORMAL) Ur Leukocyte Esterase NEGATIVE Ur Microscopic Review NOT INDICATED Urine Culture Comments NOT INDICATED - Rads (name of study) ct head Radiology: Final report received (no acute abnormality) right hip Radiology: Final report received (no acute fracture or dislocation) PD MEDICAL DECISION MAKING - ED course Complexity details: reviewed old records, reviewed results, re-evaluated patient , considered differential, d/w patient, d/w family ED course: Patient was seen and examined at bedside. labs were drawn and imaging was ordered. When patient returned from imaging the results were reviewed. There was no acute bleed, fracture or dislocation. Patient's blood work showed a mild leukocytosis but no other abnormalities. patient was afebile, and had no focal source of infection. Patient's symptoms were likely in part to polypharmacy, but there were no acute traumatic findings. patient was stable for discharge back to the [facility]. Departure - Departure Disposition: , Self Care Clinical Impression: Falls Condition: Good Instructions: ED Prevention Fall Follow-Up: Jaja Kuhn DO [Primary Care Provider] - Within 3 Days Comments: YOur diagnostics today were within normal limits. there were no acute fractures , dislocations or major abnormalities on your blood work. You should follow up with your doctor on thursday as it might be an issue with the number of sedative medications you are taking. You may return to the emergency department at any time for new, worsening or uncontrollable symptoms.
[2017-08-29 09:49] VITALS: BP 128/74
== END 2017-08-29 09:20 | disposition home or self-care (01) ==
LOC: EDUNIT# → ED 21:31
DX: Z04.8 Encounter for examination and observation for other specified reasons (principal); D72.829 Elevated white blood cell count, unspecified; E10.9 Type 1 diabetes mellitus without complications; I48.91 Unspecified atrial fibrillation; Z86.73 Personal history of transient ischemic attack (TIA), and cerebral infarction without residual deficits; Z79.01 Long term (current) use of anticoagulants; Z91.81 History of falling
CPT/HCPCS: 36415; 51701; 70450; 80053; 81001; 81003; 83690; 85025; 87086; 99284; 99285

== ENCOUNTER 2017-09-08 12:23 | Outpatient (CLI) | payer MEDICARE, OTHER ==
--- NOTE | 2017-09-09 05:21 | MRI Report ---
EXAM: MRI BRAIN WITHOUT CONTRAST EXAM DATE: 09/08/2017 01:12 PM. CLINICAL HISTORY: Possible meningioma NOTED ON CT SCAN. COMPARISON: Prior head CT studies 06/14/2017 and 08/28/2017. TECHNIQUE: Multiplanar, multisequence T1-weighted and fluid-sensitive MR sequences of the brain were performed. Sequences optimized for routine evaluation. Other: None. IV Contrast: None. FINDINGS: Brain Volume: Normal for age. Parenchyma/Dura: There is no evidence of acute infarct. There is small remote left cerebellar and lef t frontal infarcts. There are multiple areas of high T2 signal involving white matter bilateral cereb ral hemispheres. No evidence of mass to correspond to abnormality noted on head CT. Ventricles/Cisterns: There is moderate dilatation of lateral ventricles. No abnormal extra-axial flui d collection or hemorrhage. Orbits: Symmetric and unremarkable. Sella Turc[place]: The pituitary gland, cavernous sinuses, suprasellar cistern and optic chiasm are unrem arkable. IAC: Symmetric and unremarkable. Vasculature: Normal signal flow void is seen in the major arterial structures at the skull base. Sinuses: No acute appearing sinus disease. Bones: No focal pathologic appearing marrow signal changes. Other: None. IMPRESSION: 1.No evidence of meningioma. 2. Remote small left frontal and left cerebellar infarcts. 3. Moderate microvascular disease. 4. Moderate ventriculomegaly likely secondary to central volume loss. [facility] Referring Provider Line: [phone] SITE ID: [id number]
== END 2017-09-08 12:24 | disposition home or self-care (01) ==
LOC: DI 12:23
PROVIDERS: ATTEND Family Medicine
DX: D32.0 Benign neoplasm of cerebral meninges (principal)
CPT/HCPCS: 70551

== ENCOUNTER 2017-09-24 11:45 | Outpatient (CLI) | payer MEDICARE, OTHER ==
[2017-09-24 13:35] LABS: BASOPHILS % (AUTO) 0.5 %; EOSINOPHILS % (AUTO) 0.3 %; HGB - HEMOGLOBIN 13.8 g/dL (12.0-16.0); LYMPHOCYTES # (AUTO) 0.8 10^3/uL (1.5-3.5); LYMPHOCYTES % (AUTO) 20.9 %; MEAN CORPUSCULAR HEMOGLOBIN 29.8 pg (27.0-31.0); MEAN CORPUSCULAR HGB CONC 33.5 g/dL (32.0-36.0); MEAN CORPUSCULAR VOLUME 88.8 fL (81.0-99.0); MEAN PLATELET VOLUME 8.5 fL (7.9-10.8); MONOCYTES # (AUTO) 0.5 10^3/uL (0.0-1.0); MONOCYTES % (AUTO) 11.8 %; NEUTROPHILS # (AUTO) 2.6 10^3/uL (1.5-6.6); NEUTROPHILS % (AUTO) 66.5 %; PLT - PLATELET COUNT 128 10^3/uL (130-450); RED BLOOD COUNT 4.64 10^6/uL (4.20-5.40); RED CELL DISTRIBUTION WIDTH 14.4 % (12.0-15.0); WHITE BLOOD COUNT 3.9 x10^3/uL (4.8-10.8)
[2017-09-24 13:42] LABS: CREATININE 1.1 mg/dL (0.4-1.0)
== END 2017-09-24 11:46 | disposition home or self-care (01) ==
LOC: LAB.R 11:45
DX: I50.9 Heart failure, unspecified (principal); Q66.7 Congenital pes cavus
CPT/HCPCS: 80048; 85025

== ENCOUNTER 2017-09-25 08:00 | Outpatient (CLI) | payer MEDICARE, OTHER ==
[2017-09-25 07:16] LABS: BILIRUBIN,URINE NEGATIVE (NEGATIVE); GLUCOSE, URINE (UA) NEGATIVE (NEGATIVE); KETONES,URINE (UA) NEGATIVE (NEGATIVE); LEUKOCYTE ESTERASE, URINE TRACE (NEGATIVE); NITRITE,URINE POSITIVE (NEGATIVE); OCCULT BLOOD,URINE SMALL (NEGATIVE); PROTEIN,URINE NEGATIVE (NEGATIVE); UROBILINOGEN,URINE 0.2 (NORMAL) E.U./dL (NORMAL)
[2017-09-25 07:40] LABS: CLARITY,URINE CLEAR (CLEAR)
[2017-09-25 07:58] LABS: BACTERIA,URINE Many /HPF (None Seen); RBC,URINE 0-5 /HPF (0-5); SQUAMOUS EPITHELIAL CELL,UR MANY Squamous (<= Few)
== END 2017-09-25 08:01 | disposition home or self-care (01) ==
LOC: LAB.R 08:00
DX: R33.8 Other retention of urine (principal)
CPT/HCPCS: 81001; 81003; 87086

== ENCOUNTER 2017-10-03 08:00 | Outpatient (CLI) | payer MEDICARE, OTHER ==
[2017-10-03 17:35] LABS: HB2 TOTAL 14.8 g/dL; HEMOGLOBIN A1C 0.83 g/dL; HEMOGLOBIN A1C % 7.3 % (4.6-6.2)
== END 2017-10-03 08:01 | disposition home or self-care (01) ==
LOC: LAB.R 08:00
DX: E03.9 Hypothyroidism, unspecified (principal); E11.9 Type 2 diabetes mellitus without complications
CPT/HCPCS: 83036; 84443

== ENCOUNTER 2018-01-04 08:00 | Outpatient (CLI) | payer MEDICARE, OTHER, MEDICAID ==
[2018-01-04 13:31] LABS: BASOPHILS # (AUTO) 0.1 10^3/uL (0.0-0.1); EOSINOPHILS # (AUTO) 0.2 10^3/uL (0.0-0.7); EOSINOPHILS % (AUTO) 2.5 %; HGB - HEMOGLOBIN 14.1 g/dL (12.0-16.0); LYMPHOCYTES # (AUTO) 1.8 10^3/uL (1.5-3.5); LYMPHOCYTES % (AUTO) 28.7 %; MEAN CORPUSCULAR HEMOGLOBIN 29.6 pg (27.0-31.0); MEAN CORPUSCULAR HGB CONC 33.2 g/dL (32.0-36.0); MEAN CORPUSCULAR VOLUME 89.1 fL (81.0-99.0); MEAN PLATELET VOLUME 8.1 fL (7.9-10.8); MONOCYTES # (AUTO) 0.6 10^3/uL (0.0-1.0); MONOCYTES % (AUTO) 9.4 %; NEUTROPHILS # (AUTO) 3.6 10^3/uL (1.5-6.6); NEUTROPHILS % (AUTO) 58.4 %; PLT - PLATELET COUNT 140 10^3/uL (130-450); RED BLOOD COUNT 4.76 10^6/uL (4.20-5.40); RED CELL DISTRIBUTION WIDTH 14.6 % (12.0-15.0); WHITE BLOOD COUNT 6.1 x10^3/uL (4.8-10.8)
[2018-01-04 13:41] LABS: ALBUMIN 3.6 g/dL (3.2-5.5); ALBUMIN/GLOBULIN RATIO 1.2 (1.0-2.2); ALKALINE PHOSPHATASE 91 IU/L (42-121); ALT ALANINE AMINOTRANSFERASE 14 IU/L (10-60); AST ASPARTATE AMINOTRANSFERASE 19 IU/L (10-42); BILIRUBIN,TOTAL 0.4 mg/dL (0.2-1.0); BUN - BLOOD UREA NITROGEN 21 mg/dL (6-20); CALCIUM 9.8 mg/dL (8.5-10.3); CARBON DIOXIDE - CO2 29 mmol/L (21-32); CHLORIDE 102 mmol/L (101-111); CHOLESTEROL 145 mg/dL; CREATININE 0.9 mg/dL (0.4-1.0); GFR - MDRD 61 (>89); GLUCOSE 126 mg/dL (70-100); HDL CHOLESTEROL 49 mg/dL; LDL CHOLESTEROL,CALCULATED 80 mg/dL; LDL/HDL RATIO 1.6 (<4.4); SODIUM 137 mmol/L (135-145); TOTAL PROTEIN 6.5 g/dL (6.7-8.2); VLDL CHOLESTEROL 16 mg/dL
[2018-01-04 14:30] LABS: HB2 TOTAL 15.6 g/dL; HEMOGLOBIN A1C 0.9 g/dL; HEMOGLOBIN A1C % 7.4 % (4.6-6.2)
[2018-01-04 18:27] LABS: BILIRUBIN,URINE NEGATIVE (NEGATIVE); GLUCOSE, URINE (UA) NEGATIVE (NEGATIVE); KETONES,URINE (UA) NEGATIVE (NEGATIVE); LEUKOCYTE ESTERASE, URINE MODERATE (NEGATIVE); NITRITE,URINE NEGATIVE (NEGATIVE); OCCULT BLOOD,URINE TRACE-LYSE (NEGATIVE); PH,URINE 6.5 PH (5.0-7.5); PROTEIN,URINE NEGATIVE (NEGATIVE); UROBILINOGEN,URINE 0.2 (NORMAL) E.U./dL (NORMAL)
[2018-01-04 18:37] LABS: CLARITY,URINE HAZY (CLEAR)
[2018-01-04 18:41] LABS: RBC,URINE 0-5 /HPF (0-5); SQUAMOUS EPITHELIAL CELL,UR FEW Squamous (<= Few)
[2018-01-04 18:42] LABS: BACTERIA,URINE Few /HPF (None Seen)
== END 2018-01-04 08:01 ==
LOC: LAB.R 08:00
DX: E56.9 Vitamin deficiency, unspecified (principal); E11.22 Type 2 diabetes mellitus with diabetic chronic kidney disease; N18.6 End stage renal disease; R77.0 Abnormality of albumin; E75.6 Lipid storage disorder, unspecified
CPT/HCPCS: 80053; 80061; 81001; 81003; 82043; 83036; 83721; 85025; 87086

== ENCOUNTER 2018-04-08 08:00 | Outpatient (CLI) | payer MEDICARE, OTHER, MEDICAID | END 2018-04-08 08:01 | disposition home or self-care (01) | LOC: LAB.R 08:00 | DX: Z53.9 Procedure and treatment not carried out, unspecified reason (principal) ==

== ENCOUNTER 2018-04-08 21:45 | Outpatient (CLI) | payer OTHER ==
[2018-04-09 12:44] LABS: HIV RAPID SCREEN NEGATIVE (NEGATIVE)
== END 2018-04-08 21:46 | disposition home or self-care (01) ==
LOC: LAB 21:45
PROVIDERS: ATTEND Family Medicine
DX: Z53.9 Procedure and treatment not carried out, unspecified reason (principal)

== ENCOUNTER 2018-04-11 08:00 | Outpatient (CLI) | payer MEDICARE, OTHER, MEDICAID ==
[2018-04-11 20:31] LABS: BASOPHILS # (AUTO) 0.1 10^3/uL (0.0-0.1); BASOPHILS % (AUTO) 0.9 %; EOSINOPHILS # (AUTO) 0.1 10^3/uL (0.0-0.7); EOSINOPHILS % (AUTO) 2.1 %; HGB - HEMOGLOBIN 14.2 g/dL (12.0-16.0); LYMPHOCYTES # (AUTO) 1.1 10^3/uL (1.5-3.5); LYMPHOCYTES % (AUTO) 20.2 %; MEAN CORPUSCULAR HEMOGLOBIN 29.5 pg (27.0-31.0); MEAN CORPUSCULAR HGB CONC 32.5 g/dL (32.0-36.0); MEAN CORPUSCULAR VOLUME 90.7 fL (81.0-99.0); MEAN PLATELET VOLUME 8.1 fL (7.9-10.8); MONOCYTES # (AUTO) 0.4 10^3/uL (0.0-1.0); MONOCYTES % (AUTO) 7.3 %; NEUTROPHILS # (AUTO) 3.7 10^3/uL (1.5-6.6); NEUTROPHILS % (AUTO) 69.5 %; PLT - PLATELET COUNT 164 10^3/uL (130-450); RED BLOOD COUNT 4.81 10^6/uL (4.20-5.40); RED CELL DISTRIBUTION WIDTH 14.8 % (12.0-15.0); WHITE BLOOD COUNT 5.4 x10^3/uL (4.8-10.8)
[2018-04-11 20:43] LABS: ALBUMIN 3.7 g/dL (3.2-5.5); ALBUMIN/GLOBULIN RATIO 1.2 (1.0-2.2); BILIRUBIN,TOTAL 0.6 mg/dL (0.2-1.0); CALCIUM 9.7 mg/dL (8.5-10.3); CREATININE 1.1 mg/dL (0.4-1.0); TOTAL PROTEIN 6.8 g/dL (6.7-8.2); URIC ACID 6.1 mg/dL (2.6-7.2)
[2018-04-11 20:58] LABS: THYROID STIMULATING HORMONE 1.51 uIU/mL (0.34-5.60)
== END 2018-04-11 08:01 | disposition home or self-care (01) ==
LOC: LAB.R 08:00
DX: E11.9 Type 2 diabetes mellitus without complications (principal); E03.9 Hypothyroidism, unspecified
CPT/HCPCS: 80053; 82607; 84443; 84550; 85025

== ENCOUNTER 2018-04-29 16:52 | Outpatient (CLI) | payer MEDICAID, MEDICARE, OTHER ==
[2018-04-30 14:11] LABS: HEPATITIS B SURFACE ANTIGEN NON-REACTIVE (NON-REACTIVE); HEPATITIS C ANTIBODY NON-REACTIVE (NON-REACTIVE)
[2018-04-30 14:29] LABS: HIV AG/AB 4TH GEN NON-REACTIVE (NON-REACTIVE)
== END 2018-04-29 16:53 | disposition home or self-care (01) ==
LOC: LAB 16:52
DX: Z79.4 Long term (current) use of insulin (principal); Z77.21 Contact with and (suspected) exposure to potentially hazardous body fluids
CPT/HCPCS: 86803; 87340; 87389

== ENCOUNTER 2018-05-21 16:35 | Outpatient (CLI) | payer MEDICARE, OTHER, MEDICAID ==
[2018-05-21 17:08] LABS: CALCIUM 9.9 mg/dL (8.5-10.3)
== END 2018-05-21 16:36 | disposition home or self-care (01) ==
LOC: LAB.R 16:35
DX: E11.9 Type 2 diabetes mellitus without complications (principal)
CPT/HCPCS: 80048

== ENCOUNTER 2018-05-29 08:00 | Outpatient (CLI) | payer MEDICARE, OTHER, MEDICAID ==
[2018-05-29 20:06] LABS: BILIRUBIN,URINE NEGATIVE (NEGATIVE); GLUCOSE, URINE (UA) NEGATIVE (NEGATIVE); KETONES,URINE (UA) NEGATIVE (NEGATIVE); LEUKOCYTE ESTERASE, URINE SMALL (NEGATIVE); NITRITE,URINE POSITIVE (NEGATIVE); OCCULT BLOOD,URINE TRACE-INTA (NEGATIVE); PH,URINE 7.5 PH (5.0-7.5); PROTEIN,URINE NEGATIVE (NEGATIVE); UROBILINOGEN,URINE 0.2 (NORMAL) E.U./dL (NORMAL)
[2018-05-29 20:28] LABS: CLARITY,URINE CLOUDY (CLEAR)
[2018-05-29 20:29] LABS: BACTERIA,URINE Many /HPF (None Seen); RBC,URINE 0-5 /HPF (0-5); SQUAMOUS EPITHELIAL CELL,UR MOD Squamous (<= Few); WBC CLUMPS,URINE PRESENT
== END 2018-05-29 08:01 | disposition home or self-care (01) ==
LOC: LAB.R 08:00
PROVIDERS: ATTEND Family Medicine
DX: N39.0 Urinary tract infection, site not specified (principal)
CPT/HCPCS: 81001; 87086

== ENCOUNTER 2018-08-05 14:05 | Outpatient (CLI) | payer MEDICARE, OTHER, MEDICAID ==
[2018-08-05 17:41] LABS: BASOPHILS # (AUTO) 0.1 10^3/uL (0.0-0.1); BASOPHILS % (AUTO) 0.9 %; EOSINOPHILS # (AUTO) 0.2 10^3/uL (0.0-0.7); EOSINOPHILS % (AUTO) 3.6 %; HGB - HEMOGLOBIN 14.1 g/dL (12.0-16.0); LYMPHOCYTES # (AUTO) 1.3 10^3/uL (1.5-3.5); LYMPHOCYTES % (AUTO) 20.5 %; MEAN CORPUSCULAR HEMOGLOBIN 29.9 pg (27.0-31.0); MEAN CORPUSCULAR VOLUME 90.7 fL (81.0-99.0); MEAN PLATELET VOLUME 8.6 fL (7.9-10.8); MONOCYTES # (AUTO) 0.6 10^3/uL (0.0-1.0); MONOCYTES % (AUTO) 9.9 %; NEUTROPHILS % (AUTO) 65.1 %; PLT - PLATELET COUNT 152 10^3/uL (130-450); RED BLOOD COUNT 4.71 10^6/uL (4.20-5.40); RED CELL DISTRIBUTION WIDTH 14.8 % (12.0-15.0); WHITE BLOOD COUNT 6.1 x10^3/uL (4.8-10.8)
[2018-08-05 18:40] LABS: HB2 TOTAL 14.9 g/dL; HEMOGLOBIN A1C 1.01 g/dL; HEMOGLOBIN A1C % 8.4 % (4.6-6.2)
[2018-08-05 18:42] LABS: CALCIUM 9.5 mg/dL (8.5-10.3); CREATININE 1.2 mg/dL (0.4-1.0)
== END 2018-08-05 23:59 | disposition home or self-care (01) ==
LOC: LAB.R 14:05
PROVIDERS: ATTEND Family Medicine
DX: E11.9 Type 2 diabetes mellitus without complications (principal); E87.6 Hypokalemia
CPT/HCPCS: 80048; 83036; 85025

== ENCOUNTER 2018-09-04 08:00 | Outpatient (CLI) | payer MEDICARE, OTHER, MEDICAID ==
[2018-09-04 17:43] LABS: CALCIUM 9.9 mg/dL (8.5-10.3); CREATININE 0.9 mg/dL (0.4-1.0)
== END 2018-09-04 08:01 | disposition home or self-care (01) ==
LOC: LAB.R 08:00
PROVIDERS: ATTEND Family Medicine
DX: R19.8 Other specified symptoms and signs involving the digestive system and abdomen (principal)
CPT/HCPCS: 80048

== ENCOUNTER 2018-11-15 19:30 | Outpatient (CLI) | payer MEDICARE, OTHER, MEDICAID ==
[2018-11-16 20:56] LABS: CALCIUM 9.8 mg/dL (8.5-10.3)
== END 2018-11-15 23:59 | disposition home or self-care (01) ==
LOC: LAB.R 19:30
PROVIDERS: ATTEND Family Medicine
DX: E11.65 Type 2 diabetes mellitus with hyperglycemia (principal)
CPT/HCPCS: 80048

== ENCOUNTER 2019-01-20 08:00 | Outpatient (CLI) | payer MEDICAID, MEDICARE, OTHER ==
[2019-01-20 16:14] LABS: BILIRUBIN,URINE NEGATIVE (NEGATIVE); GLUCOSE, URINE (UA) NEGATIVE (NEGATIVE); KETONES,URINE (UA) NEGATIVE (NEGATIVE); LEUKOCYTE ESTERASE, URINE SMALL (NEGATIVE); NITRITE,URINE POSITIVE (NEGATIVE); OCCULT BLOOD,URINE SMALL (NEGATIVE); PH,URINE 6.5 PH (5.0-7.5); PROTEIN,URINE NEGATIVE (NEGATIVE); UROBILINOGEN,URINE 0.2 (NORMAL) E.U./dL (NORMAL)
[2019-01-20 16:22] LABS: BACTERIA,URINE Many /HPF (None Seen); CLARITY,URINE HAZY (CLEAR); RBC,URINE 0-5 /HPF (0-5); SQUAMOUS EPITHELIAL CELL,UR NONE SEEN (<= Few); WBC CLUMPS,URINE PRESENT
== END 2019-01-20 23:59 | disposition home or self-care (01) ==
LOC: LAB.R 08:00
PROVIDERS: ATTEND Family Medicine
DX: N39.0 Urinary tract infection, site not specified (principal)
CPT/HCPCS: 81001; 87086; 87181

== ENCOUNTER 2019-05-13 13:21 | Outpatient (CLI) | payer MEDICARE, OTHER, MEDICAID | END 2019-05-13 13:22 | disposition EMS.NT | LOC: EMS 13:21 | PROVIDERS: ATTEND Surgery | DX: R73.09 Other abnormal glucose (principal) ==

== ENCOUNTER 2019-05-25 14:45 | Outpatient (CLI) | payer MEDICARE, OTHER, MEDICAID ==
[2019-05-25 16:18] LABS: BASOPHILS # (AUTO) 0.1 10^3/uL (0.0-0.1); BASOPHILS % (AUTO) 1.1 %; EOSINOPHILS # (AUTO) 0.3 10^3/uL (0.0-0.7); EOSINOPHILS % (AUTO) 6.1 %; HGB - HEMOGLOBIN 13.8 g/dL (12.0-16.0); LYMPHOCYTES # (AUTO) 1.7 10^3/uL (1.5-3.5); LYMPHOCYTES % (AUTO) 30.9 %; MEAN CORPUSCULAR HEMOGLOBIN 30.2 pg (27.0-31.0); MEAN CORPUSCULAR HGB CONC 32.6 g/dL (32.0-36.0); MEAN CORPUSCULAR VOLUME 92.6 fL (81.0-99.0); MONOCYTES # (AUTO) 0.5 10^3/uL (0.0-1.0); MONOCYTES % (AUTO) 10.1 %; NEUTROPHILS # (AUTO) 2.8 10^3/uL (1.5-6.6); NEUTROPHILS % (AUTO) 51.6 %; PLT - PLATELET COUNT 146 10^3/uL (130-450); RED BLOOD COUNT 4.57 10^6/uL (4.20-5.40); RED CELL DISTRIBUTION WIDTH 13.2 % (12.0-15.0); WHITE BLOOD COUNT 5.4 x10^3/uL (4.8-10.8)
[2019-05-25 16:41] LABS: CALCIUM 10.2 mg/dL (8.5-10.3); CREATININE 1.1 mg/dL (0.4-1.0)
== END 2019-05-25 23:59 | disposition home or self-care (01) ==
LOC: LAB.R 14:45
DX: Z86.73 Personal history of transient ischemic attack (TIA), and cerebral infarction without residual deficits (principal); R79.89 Other specified abnormal findings of blood chemistry; I48.91 Unspecified atrial fibrillation; R68.89 Other general symptoms and signs; E03.9 Hypothyroidism, unspecified
CPT/HCPCS: 80048; 84443; 85025

== ENCOUNTER 2019-09-13 15:33 | Outpatient (CLI) | payer MEDICARE, OTHER, MEDICAID | END 2019-09-13 15:34 | disposition critical access hospital (66) | LOC: EMS 15:33 | PROVIDERS: ATTEND Surgery | DX: S99.911A Unspecified injury of right ankle, initial encounter (principal); W23.0XXA Caught, crushed, jammed, or pinched between moving objects, initial encounter; Y92.129 Unspecified place in nursing home as the place of occurrence of the external cause ==

== ENCOUNTER 2019-09-13 15:35 | Emergency (ER) | payer MEDICARE, OTHER, MEDICAID ==
--- NOTE | 2019-09-13 16:10 | XRAY Report ---
Reason: Twisted ankle, has pain. Hx charcot and surgery Procedure Date: 09/13/2019 Accession Number: [id number] / [id number] Procedure: XR - Ankle 3 View RT CPT Code: Final Report FULL RESULT: EXAM: RIGHT ANKLE RADIOGRAPHY EXAM DATE: 09/13/2019 04:01 PM. CLINICAL HISTORY: Twisted ankle, has pain. Hx charcot and surgery. COMPARISON: XR FOOT COMPLETE MIN 3 VIEWS 12/06/2011 10:42 AM. TECHNIQUE: 3 views. FINDINGS: Bones: Chronic appearing bony fragmentation and collapse in the midfoot. No acute fracture is identified. No lucent or sclerotic lesion is identified. Joints: Normal. No effusion. No subluxations. The ankle mortise is normally aligned. Soft Tissues: Moderate soft tissue swelling over the dorsal forefoot and throughout the lower leg and ankle. Mild thickening over the Achilles tendon. IMPRESSION: 1. Bony fragmentation and collapse in the right midfoot consistent with history of neuropathic arthropathy. 2. No gross acute fracture is identified in the foot. No fracture or malalignment is identified at the right ankle. [facility]
[2019-09-13 16:12] VITALS: BP 130/72
--- NOTE | 2019-09-13 16:22 | ED Physician Documentation ---
History of Present Illness - Stated complaint Stated Complaint: LFT FOOT PX - Chief complaint Chief Complaint: Ext Problem - Additonal information Additional information: This is a 73-year-old female with a history of blindness, partial deafness, Charcot foot, multiple past foot surgeries, who presents with right ankle pain. Patient reportedly twisted her ankle last night while transferring, and she has had some intermittent discomfort since then.She lives at [facility], and the staff there sent her here for x-rays. She did receive 2 Vicodin at 15: 30, she states her pain is currently mild. She denies hitting her head or pain elsewhere. She typically is nonambulatory at baseline, but is able to transfer. EMS states that she was able to stand and pivot to their gurney and bear weight on the foot. No fever, no new swelling in the foot, no obvious deformity noted by patient or staff. 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 TILE FLOOR LAYER: Hysterectomy, Breast implants HEENT: Cataracts - Present Medications Home Medications: Ambulatory Orders Medication Instructions Recorded Confirmed Brimonidine 0.15% Ophth Drops 1 drops LEFTEYE TID 01/19/13 06/15/17 [Alphagan P 0.15% Ophth Drops] Cetirizine [ZyrTEC] 10 mg PO HS 01/19/13 06/15/17 Levothyroxine Sodium [Synthroid] 88 mcg PO DAILY 01/19/13 06/15/17 Timolol 0.5% Ophth Drops [Timoptic 1 drops LEFTEYE BID 01/19/13 06/15/17 0.5% Ophth Drops] Warfarin [Coumadin] 2.5 mg PO TUTH 01/19/13 06/15/17 Warfarin [Coumadin] 5 mg PO SUMOWEFRSA 01/19/13 06/15/17 Subcutaneous Insulin Pump [Insulin 1 each MC DAILY 06/18/13 06/15/17 Pump] Docusate Sodium [Dss] 250 mg PO BID PRN 03/09/14 06/15/17 Latanoprost 0.005% Ophth Drops 1 drop LEFTEYE QPM 06/20/14 06/15/17 [Xalatan Ophth Drops] Hydrocodone/Acetaminophen [[place] 1 - 2 tab PO Q6H PRN MDD PAIN 02/02/16 06/15/17 5-325 Tablet] Multivitamin W/Minerals [Theragran 1 each PO DAILY 02/02/16 06/15/17 M] Potassium Chloride 20 meq PO TIDWM 02/02/16 06/15/17 Saccharomyces Boulardii [Florastor] 250 mg PO DAILY 03/20/16 06/15/17 Insulin Glargine,Hum.rec.anlog 18 unit SQ BID 04/09/16 06/15/17 [Lantus] Insulin Lispro [Humalog] 3 unit SUBQ AC 04/09/16 06/15/17 Cephalexin [Keflex] 500 mg PO BID #18 capsule 06/15/17 Pantoprazole [Protonix] 40 mg PO DAILY 06/15/17 06/15/17 Trazodone HCl 100 mg PO DAILY PM PRN 06/15/17 06/15/17 Zolpidem Tartrate 5 mg PO DAILY PM PRN 06/15/17 06/15/17 - Allergies Allergies/Adverse Reactions: Allergies Allergy/AdvReac Type Severity Reaction Status Date / Time codeine Allergy Unknown Hallucinati Verified 09/13/19 16:09 ons mites,pollen,horse, cat, Allergy Severe Respiratory Uncoded 09/13/19 16:09 feathers - Social History Does the pt smoke?: No Smoking Status: Never smoker Does the pt drink ETOH?: No Does the pt have substance abuse?: No - Immunizations Immunizations are current?: Yes - POLST Patient has POLST: Yes PD ED PE NORMAL - General General: Other (Alert, hard of hearing but conversive when spoken to loudly.) - HEENT HEENT: Atraumatic - Neck Neck: Supple, no meningeal sign - Cardiac Cardiac: Strong equal pulses - Respiratory Respiratory: No respiratory distress - Extremities Extremities: Other (1+ edema of bilateral feet, says this is baseline. R foot appears to have a collapsed arch, but there is no crepitus, no bony tenderness over the tibia, fibula, tarsals, metatarsals, or toes on my exam. Cap refill is brisk. Ankle has no pain with ROM on my exam.) - Neuro Neuro: Other (Awake, alert, oriented to self and place and general event, but not able to tell me details about the mechanism of her injury. Her states that this is her baseline. Hard of hearing and visually impaired. Moving all extremities, no focal deficits.) Results - Vitals Vitals: Vital Signs - 24 hr 09/13/19 16:09 Temperature 36.6 C Heart Rate 54 L Respiratory 18 Rate Blood Pressure 130/72 O2 Saturation 94 Oxygen O2 Source Room air - Rads (name of study) XR R ankle Radiology: Other (Chronic changes without acute fracture or dislocation. ) PD MEDICAL DECISION MAKING - ED course ED course: Pt presents with R ankle pain in the setting of minor trauma, limb is neurovascularly intact with no bony tenderness and symmetric ROM on my exam. Her edema is baseline, She has been able to bear weight on it for transfers, which is the limit of her mobility at baseline. XR is negative for acute fracture. I discussed with patient and her supportive care and PCP follow up, as well as the need for re-exam if not improving in a week to assess for occult fracture. They are in agreement and she was discharged back to [facility]. Departure - Departure Disposition: 01 Home, Self Care Clinical Impression: Ankle pain, right Qualifiers: Chronicity: acute Qualified Code(s): M25.571 - Pain in right ankle and joints of right foot Follow-Up: Kevin Carr, [Primary Care Provider] - Comments: Our x-ray did not show signs of an obvious fracture of your ankle. If you are having continued or not improving pain after 1 week please follow-up with your primary care provider for repeat x-rays. If you are developing new or concerning symptoms such as severe pain, fever, greatly increased swelling, re turn to the emergency department for a recheck. Try to elevate the ankle when in bed, and apply ice to it 20 minutes at a time several times a day to help with pain and inflammation. Discharge Date/Time: 09/13/19 17:45
== END 2019-09-13 17:45 | disposition home or self-care (01) ==
LOC: EDUNIT# → ED 15:35
DX: M25.571 Pain in right ankle and joints of right foot (principal); X50.1XXA Overexertion from prolonged static or awkward postures, initial encounter; Y92.129 Unspecified place in nursing home as the place of occurrence of the external cause; E10.9 Type 1 diabetes mellitus without complications; I48.91 Unspecified atrial fibrillation; Z79.01 Long term (current) use of anticoagulants; H54.7 Unspecified visual loss; H91.90 Unspecified hearing loss, unspecified ear
CPT/HCPCS: 99283; 99284

== ENCOUNTER 2019-09-13 17:43 | Outpatient (CLI) | payer MEDICARE, OTHER, MEDICAID | END 2019-09-13 17:44 | disposition home or self-care (01) | LOC: EMS 17:43 | PROVIDERS: ATTEND Surgery | DX: Z74.01 Bed confinement status (principal); R41.0 Disorientation, unspecified; N39.0 Urinary tract infection, site not specified; R53.1 Weakness; M25.571 Pain in right ankle and joints of right foot; Z99.3 Dependence on wheelchair; H91.90 Unspecified hearing loss, unspecified ear; H54.7 Unspecified visual loss; S99.911A Unspecified injury of right ankle, initial encounter; W23.0XXA Caught, crushed, jammed, or pinched between moving objects, initial encounter; Y92.129 Unspecified place in nursing home as the place of occurrence of the external cause | CPT/HCPCS: A0425; A0428; A0429 ==

== ENCOUNTER 2019-09-19 15:11 | Outpatient (CLI) | payer MEDICARE, OTHER, MEDICAID | END 2019-09-19 15:12 | disposition critical access hospital (66) | LOC: EMS 15:11 | PROVIDERS: ATTEND Surgery | DX: M25.551 Pain in right hip (principal); W18.30XA Fall on same level, unspecified, initial encounter; Y92.129 Unspecified place in nursing home as the place of occurrence of the external cause ==

== ENCOUNTER 2019-09-19 15:17 | Emergency (ER) | payer MEDICARE, OTHER, MEDICAID ==
[2019-09-19 15:34] LABS: BASOPHILS % (AUTO) 0.5 %; EOSINOPHILS # (AUTO) 0.2 10^3/uL (0.0-0.7); HGB - HEMOGLOBIN 12.4 g/dL (12.0-16.0); LYMPHOCYTES % (AUTO) 12.8 %; MEAN CORPUSCULAR HEMOGLOBIN 29.7 pg (27.0-31.0); MEAN CORPUSCULAR HGB CONC 31.6 g/dL (32.0-36.0); MEAN PLATELET VOLUME 9.7 fL (7.9-10.8); MONOCYTES # (AUTO) 0.8 10^3/uL (0.0-1.0); MONOCYTES % (AUTO) 10.8 %; NEUTROPHILS # (AUTO) 5.6 10^3/uL (1.5-6.6); NEUTROPHILS % (AUTO) 72.5 %; PLT - PLATELET COUNT 138 10^3/uL (130-450); RED BLOOD COUNT 4.17 10^6/uL (4.20-5.40); RED CELL DISTRIBUTION WIDTH 13.3 % (12.0-15.0); WHITE BLOOD COUNT 7.7 x10^3/uL (4.8-10.8)
--- NOTE | 2019-09-19 15:35 | ED Physician Documentation ---
History of Present Illness - Stated complaint Stated Complaint: GLF - Chief complaint Chief Complaint: Trauma Ext - History obtained from History obtained from: Patient, EMS - History of Present Illness Timing: Today Pain level max: 6 Pain level now: 6 - Additonal information Additional information: 73 year old female, lives at [facility]. She states that she had a fall last night and another fall today. Now complaining of right hip pain. She states that she did hit her head and neck on the ground as well. She takes Eliquis at home. No vomiting. Better with rest and worse with movement. She also states that her blood sugars have been high recently. She also states she has been urinating more than usual. No fevers. No vomiting. No abdominal pain. No loss of consciousness. No syncope. No chest pain. No dyspnea. 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 NURSE SPECIALIST: None : Incontinence, Chronic bladder infection HEENT: Chronic vision loss Psych: None Musculoskeletal: Osteoarthritis Derm: None - Past Surgical History Past Surgical History: Yes General: Appendectomy /PSYCHIATRIC CLINICAL NURSE SPECIALIST: Hysterectomy, Breast implants HEENT: Cataracts - Present Medications Home Medications: Ambulatory Orders Medication Instructions Recorded Confirmed Brimonidine 0.15% Ophth Drops 1 drops LEFTEYE TID 01/19/13 06/15/17 [Alphagan P 0.15% Ophth Drops] Cetirizine [ZyrTEC] 10 mg PO HS 01/19/13 06/15/17 Levothyroxine Sodium [Synthroid] 88 mcg PO DAILY 01/19/13 06/15/17 Timolol 0.5% Ophth Drops [Timoptic 1 drops LEFTEYE BID 01/19/13 06/15/17 0.5% Ophth Drops] Warfarin [Coumadin] 2.5 mg PO TUTH 01/19/13 06/15/17 Warfarin [Coumadin] 5 mg PO SUMOWEFRSA 01/19/13 06/15/17 Subcutaneous Insulin Pump [Insulin 1 each MC DAILY 06/18/13 06/15/17 Pump] Docusate Sodium [Dss] 250 mg PO BID PRN 03/09/14 06/15/17 Latanoprost 0.005% Ophth Drops 1 drop LEFTEYE QPM 06/20/14 06/15/17 [Xalatan Ophth Drops] Hydrocodone/Acetaminophen [[place] 1 - 2 tab PO Q6H PRN MDD PAIN 02/02/16 06/15/17 5-325 Tablet] Multivitamin W/Minerals [Theragran 1 each PO DAILY 02/02/16 06/15/17 M] Potassium Chloride 20 meq PO TIDWM 02/02/16 06/15/17 Saccharomyces Boulardii [Florastor] 250 mg PO DAILY 03/20/16 06/15/17 Insulin Glargine,Hum.rec.anlog 18 unit SQ BID 04/09/16 06/15/17 [Lantus] Insulin Lispro [Humalog] 3 unit SUBQ AC 04/09/16 06/15/17 Cephalexin [Keflex] 500 mg PO BID #18 capsule 06/15/17 Pantoprazole [Protonix] 40 mg PO DAILY 06/15/17 06/15/17 Trazodone HCl 100 mg PO DAILY PM PRN 06/15/17 06/15/17 Zolpidem Tartrate 5 mg PO DAILY PM PRN 06/15/17 06/15/17 Cephalexin [Keflex] 500 mg PO Q6H #28 capsule 09/19/19 - Allergies Allergies/Adverse Reactions: Allergies Allergy/AdvReac Type Severity Reaction Status Date / Time codeine Allergy Unknown Hallucinati Verified 09/19/19 15:31 ons mites,pollen,horse, cat, Allergy Severe Respiratory Uncoded 09/19/19 15:31 feathers - Social History Does the pt smoke?: No Smoking Status: Never smoker Does the pt drink ETOH?: No Does the pt have substance abuse?: No - Immunizations Immunizations are current?: Yes - POLST Patient has POLST: Yes PD ED PE NORMAL - Vitals Vital signs reviewed: Yes - General General: Alert and oriented X 3, No acute distress, Well developed/nourished - HEENT HEENT: Atraumatic, PERRL, Moist mucous membranes - Neck Neck: Supple, no meningeal sign, Other (mid c-spine TTP. no stepoff or deformity. ) - Cardiac Cardiac: RRR, Strong equal pulses - Respiratory Respiratory: No respiratory distress, Clear bilaterally - Abdomen Abdomen: Soft, Non tender, Non distended - Back Back: No spinal TTP - Derm Derm: Warm and dry - Extremities Extremities: No deformity, Other (mild pain with ROM of the R hip. o/w normal exam of the 4 extremities. no pain with ROM of L hip, B knees, shoulders, elbows and wrists) - Neuro Neuro: Alert and oriented X 3 - Psych Psych: Normal mood, Normal affect Results - Vitals Vitals: Vital Signs - 24 hr 09/19/19 09/19/19 09/19/19 15:24 17:02 18:20 Temperature 37.0 C Heart Rate 94 66 Respiratory 16 18 18 Rate Blood Pressure 135/91 H 124/74 134/82 H O2 Saturation 96 93 95 09/19/19 18:30 Temperature 37.0 C Heart Rate 65 Respiratory 18 Rate Blood Pressure 139/100 H O2 Saturation 96 Oxygen O2 Source Room air - Labs Labs: Laboratory Tests 09/19/19 09/19/19 09/19/19 15:25 15:25 17:00 WBC 7.7 RBC 4.17 L Hgb 12.4 Hct 39.2 MCV 94.0 MCH 29.7 MCHC 31.6 L RDW 13.3 Plt Count 138 MPV 9.7 Neut # (Auto) 5.6 Lymph # (Auto) 1.0 L [place] # (Auto) 0.8 Eos # (Auto) 0.2 Baso # (Auto) 0.0 Absolute Nucleated RBC 0.00 Nucleated RBC % 0.0 Sodium 135 Potassium 4.1 Chloride 95 L Carbon Dioxide 33 H Anion Gap 7.0 BUN 24 H Creatinine 1.3 H Estimated GFR (MDRD) 40 L Glucose 292 H Calcium 10.3 Total Bilirubin 1.2 H AST 20 ALT 14 Alkaline Phosphatase 79 Total Protein 6.8 Albumin 3.4 Globulin 3.4 Albumin/Globulin Ratio 1.0 Lipase 18 L Urine Color RED/BLOODY Urine Clarity BLOODY Urine pH 6.0 Ur Specific [place] 1.020 Urine Protein 100 H Urine Glucose (UA) 500 H Urine Ketones NEGATIVE Urine Occult Blood LARGE H Urine Nitrite NEGATIVE Urine Bilirubin NEGATIVE Urine Urobilinogen 1 (NORMAL) Ur Leukocyte Esterase MODERATE H Urine RBC TNTC H Urine WBC >25 H Urine WBC Clumps PRESENT Ur Squamous Epith Cells NONE SEEN Urine Bacteria Few Ur Microscopic Review INDICATED Urine Culture Comments INDICATED - Rads (name of study) head CT Radiology: Prelim report reviewed, EMP read contemporaneously, See rad report (No acute abnormality) c-spine CT Radiology: Prelim report reviewed, EMP read contemporaneously, See rad report (No acute abnormality) R hip xray Radiology: Prelim report reviewed, EMP read contemporaneously, See rad report (No acute abnormality) PD MEDICAL DECISION MAKING - ED course Complexity details: reviewed results, re-evaluated patient, considered differential, d/w patient ED course: No acute findings on radiographs or laboratory testing other than a UTI. Given Rocephin here. Will place on antibiotics for home. Patient is well-appearing, nontoxic. Cervical spine cleared after radiographs. We will have her follow-up with her doctor for further care. Patient lives at [facility] and will be sent back there. This document was made in part using voice recognition software. While efforts are made to proofread this document, sound alike and grammatical errors may occur. Departure - Departure Disposition: 01 Home, Self Care Clinical Impression: UTI (lower urinary tract infection) Fall Qualifiers: Encounter type: initial encounter Qualified Code(s): W19.XXXA - Unspecified fall, initial encounter Head injury Qualifiers: Encounter type: initial encounter Qualified Code(s): S09.90XA - Unspecified injury of head, initial encounter Contusion, hip Qualifiers: Encounter type: initial encounter Laterality: right Qualified Code(s): S70.01XA - Contusion of right hip, initial encounter Condition: Good Instructions: ED Head Injury Closed, ED UTI Cystitis Female Follow-Up: Kevin Carr DO [Primary Care Provider] - Within 1 week Prescriptions: Cephalexin [Keflex] 500 mg PO Q6H #28 capsule Comments: Take all antibiotics until gone. Return if she worsens. There are no acute findings on her CAT scans or x-rays tonight. Discharge Date/Time: 09/19/19 21:27
[2019-09-19 15:47] LABS: ALBUMIN 3.4 g/dL (3.2-5.5); BILIRUBIN,TOTAL 1.2 mg/dL (0.2-1.0); CALCIUM 10.3 mg/dL (8.5-10.3); CREATININE 1.3 mg/dL (0.4-1.0); TOTAL PROTEIN 6.8 g/dL (6.7-8.2)
--- NOTE | 2019-09-19 16:02 | XRAY Report ---
Reason: fall, R hip pain Procedure Date: 09/19/2019 Accession Number: [id number] / [id number] Procedure: XR - Hip w/Pelvis 2-3V RT CPT Code: Final Report FULL RESULT: EXAM: RIGHT HIP RADIOGRAPHY EXAM DATE: 09/19/2019 03:36 PM. CLINICAL HISTORY: Fall, R hip pain. Right hip pain. COMPARISON: None. TECHNIQUE: 2 views. FINDINGS: Bones: No acute fracture is seen. Limited due to osteopenia and overlying soft tissue. Joints: Mild bilateral hip degenerative joint disease. Mild bilateral sacroiliac degenerative joint disease, right greater than left. No dislocation. Soft Tissues: Large amount of soft tissue limits visualization of the osseous structures. IMPRESSION: No acute fractures are seen. Limited as above. Degenerative changes. RADIA
--- NOTE | 2019-09-19 16:14 | CT Report ---
Reason: Head trauma, coagulopathy Procedure Date: 09/19/2019 Accession Number: [id number] / [id number] Procedure: CT - HEAD WO CPT Code: Final Report FULL RESULT: EXAM: CT HEAD EXAM DATE: 09/19/2019 03:41 PM. CLINICAL HISTORY: Head trauma, coagulopathy. COMPARISON: HEAD W/O 08/28/2017 10:26 PM. TECHNIQUE: Multiaxial CT images were obtained from the foramen magnum to the vertex. Reformats: Sagittal and coronal. IV contrast: None. In accordance with CT protocol optimization, one or more of the following dose reduction techniques were utilized for this exam: automated exposure control, adjustment of mA and/or KV based on patient size, or use of iterative reconstructive technique. FINDINGS: Parenchyma: No acute intra-or cranial hemorrhage identified. Age-related changes of moderate cerebral atrophy and periventricular white matter disease again noted. Small old foci of encephalomalacia suggesting old infarcts noted in the right cerebellum and left basal ganglia unchanged. Extraaxial Spaces: Normal for age. No subdural or epidural collections identified. Ventricles: Normal in size and position. Sinuses and Orbits: There is new moderate mucosal thickening and fluid level within the right maxillary sinus. The remainder of the paranasal sinuses and mastoids are completely clear. Bones: No evidence of fracture or calvarial defect. Other: None. IMPRESSION: 1. New moderate acute/chronic right maxillary sinusitis. 2. No acute intra-cranial hemorrhage or other interval change. 3. 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 RADIA
--- NOTE | 2019-09-19 16:48 | CT Report ---
Reason: Neck trauma, midline tenderness Procedure Date: 09/19/2019 Accession Number: [id number] / [id number] Procedure: CT - CERVICAL SPINE WO CPT Code: Final Report FULL RESULT: EXAM: CT CERVICAL SPINE WITHOUT CONTRAST DATE: 09/19/2019 03:41 PM. HISTORY: Neck trauma, midline tenderness. COMPARISONS: HEAD W/O 08/28/2017 10:26 PM CERVICAL SPINE W/O 02/04/2016 8:05 PM CERVICAL SPINE W/O 02/04/2016 8:46 PM. TECHNIQUE: Thin-section axial images were acquired of the cervical spine without contrast. Post-processing: Coronal and sagittal reformats. Other: None. In accordance with CT protocol optimization, one or more of the following dose reduction techniques were utilized for this exam: automated exposure control, adjustment of mA and/or KV based on patient size, or use of iterative reconstructive technique. FINDINGS: Alignment: Mild generalized rightward convex curve and cervical spine unchanged. No spondylolisthesis. Bones: No fracture or bone lesion. Interspace Levels/Facets: C1-C2: Degenerative arthritic changes with ligamentous calcification anterior to dens and superior to C1 again seen. Mild facet hypertrophy. No canal stenosis or foraminal stenosis. C2-C3: Mild facet hypertrophy. Otherwise unremarkable. C3-C4: Mild facet hypertrophy. Otherwise unremarkable. C4-C5: Disk space narrowing and mild disk bulge with endplate spurring. Mild facet hypertrophy. No canal or foraminal stenosis. C5-C6: Disk space narrowing and endplate spurring. Mild facet hypertrophy. No canal or foraminal stenosis. C6-C7: Disk space narrowing and endplate spurring. Mild facet hypertrophy. No canal or foraminal stenosis. C7-T1: Mild facet hypertrophy. Otherwise unremarkable. Musculature: Normal. No fatty atrophy. Other: Asymmetric right lobe thyroid enlargement with low attenuation 2 cm nodular focus in right lobe. This appears minimally more prominent than low-attenuation focus visible on prior study. The paravertebral and prevertebral soft tissues are unremarkable. The lung apices are clear. IMPRESSION: 1. No acute posttraumatic change seen in cervical spine. Spondylotic changes as above without canal stenosis or high-grade foraminal stenosis. 2. Low-attenuation focus in asymmetrically prominent right lobe of thyroid, incompletely characterized. Similar appearance is seen on prior study from 2016. Ultrasound could be considered for more complete assessment. 3. Exam otherwise as above. RADIA
[2019-09-19 17:18] LABS: GLUCOSE, URINE (UA) 500 mg/dL (NEGATIVE); KETONES,URINE (UA) NEGATIVE (NEGATIVE); LEUKOCYTE ESTERASE, URINE MODERATE (NEGATIVE); NITRITE,URINE NEGATIVE (NEGATIVE); OCCULT BLOOD,URINE LARGE (NEGATIVE); PROTEIN,URINE 100 mg/dL (NEGATIVE); UROBILINOGEN,URINE 1 (NORMAL) E.U./dL (NORMAL)
[2019-09-19 17:30] LABS: BILIRUBIN,URINE NEGATIVE (NEGATIVE); CLARITY,URINE BLOODY (CLEAR); ICTOTEST,URINE NEGATIVE
[2019-09-19 17:51] LABS: BACTERIA,URINE Few /HPF (None Seen); RBC,URINE TNTC /HPF (0-5); SQUAMOUS EPITHELIAL CELL,UR NONE SEEN (<= Few); WBC CLUMPS,URINE PRESENT
[2019-09-19] MEDS ORDERED: cefTRIAXone 1 GM VIAL IVP STA (18:01)
[2019-09-19 21:08] VITALS: BP 139/100
== END 2019-09-19 21:27 | disposition home or self-care (01) ==
LOC: EDUNIT# → ED 15:17
DX: S09.90XA Unspecified injury of head, initial encounter (principal); S70.01XA Contusion of right hip, initial encounter; W18.30XA Fall on same level, unspecified, initial encounter; Z91.81 History of falling; Y92.129 Unspecified place in nursing home as the place of occurrence of the external cause; N39.0 Urinary tract infection, site not specified; M47.812 Spondylosis without myelopathy or radiculopathy, cervical region; M16.0 Bilateral primary osteoarthritis of hip; E10.9 Type 1 diabetes mellitus without complications; I48.91 Unspecified atrial fibrillation; Z79.01 Long term (current) use of anticoagulants
CPT/HCPCS: 36415; 70450; 72125; 80053; 81001; 81003; 83690; 85025; 87077; 87086; 87181; 96374; 99284

== ENCOUNTER 2019-09-19 21:35 | Outpatient (CLI) | payer MEDICARE, OTHER, MEDICAID | END 2019-09-19 21:36 | disposition home or self-care (01) | LOC: EMS 21:35 | PROVIDERS: ATTEND Surgery | DX: R53.1 Weakness (principal); N39.0 Urinary tract infection, site not specified; R41.0 Disorientation, unspecified; W19.XXXA Unspecified fall, initial encounter | CPT/HCPCS: A0425; A0428; A0429 ==

== ENCOUNTER 2019-10-28 15:06 | Outpatient (CLI) | payer MEDICARE, OTHER, MEDICAID | END 2019-10-28 15:07 | disposition critical access hospital (66) | LOC: EMS 15:06 | PROVIDERS: ATTEND Surgery | DX: Z03.89 Encounter for observation for other suspected diseases and conditions ruled out (principal) | CPT/HCPCS: A0425; A0429 ==

== ENCOUNTER 2019-10-28 15:11 | Emergency (ER) | payer MEDICARE, OTHER, MEDICAID ==
--- NOTE | 2019-10-28 15:41 | ED Physician Documentation ---
PD HPI LOWER EXT INJURY - Stated complaint Stated Complaint: LEG, SWELLING - History obtained from History obtained from: Patient (73-year-old woman whose had right leg redness for a few days. 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 She was sent here for evaluation of DVT noting that she is on warfarin though. She denies fevers. It is painless. 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 : Incontinence, Chronic bladder infection HEENT: Chronic vision loss Psych: None Musculoskeletal: Osteoarthritis Derm: None - Past Surgical History Past Surgical History: Yes General: Appendectomy /FLOOR FINISHER: Hysterectomy, Breast implants HEENT: Cataracts - Present Medications Home Medications: Ambulatory Orders Medication Instructions Recorded Confirmed Cetirizine [ZyrTEC] 10 mg PO HS 01/19/13 06/15/17 Levothyroxine Sodium [Synthroid] 88 mcg PO DAILY 01/19/13 06/15/17 Timolol 0.5% Ophth Drops [Timoptic 1 drops LEFTEYE BID 01/19/13 06/15/17 0.5% Ophth Drops] Warfarin [Coumadin] 20 mg PO 01/19/13 06/15/17 Docusate Sodium [Dss] 250 mg PO BID PRN 03/09/14 06/15/17 Latanoprost 0.005% Ophth Drops 1 drop LEFTEYE QPM 06/20/14 06/15/17 [Xalatan Ophth Drops] Hydrocodone/Acetaminophen [[place] 1 - 2 tab PO Q6H PRN MDD PAIN 02/02/16 06/15/17 5-325 Tablet] Potassium Chloride 20 meq PO TIDWM 02/02/16 06/15/17 Saccharomyces Boulardii [Florastor] 250 mg PO DAILY 03/20/16 06/15/17 Insulin Glargine,Hum.rec.anlog 15 unit SQ BID 04/09/16 06/15/17 [Lantus] Insulin Lispro [Humalog] 5 unit SUBQ AC 04/09/16 06/15/17 Pantoprazole [Protonix] 40 mg PO DAILY 06/15/17 06/15/17 Cephalexin [Keflex] 500 mg PO Q6H #28 capsule 10/28/19 Clorthalidone 10/28/19 Melatonin 3 mg PO 10/28/19 Saccharomyces Boulardii [Florastor] 250 mg PO 10/28/19 - Allergies Allergies/Adverse Reactions: Allergies Allergy/AdvReac Type Severity Reaction Status Date / Time codeine Allergy Unknown Hallucinati Verified 10/28/19 15:43 ons mites,pollen,horse, cat, Allergy Severe Respiratory Uncoded 10/28/19 15:43 feathers - Social History Does the pt smoke?: No Smoking Status: Never smoker Does the pt drink ETOH?: No Does the pt have substance abuse?: No - Immunizations Immunizations are current?: Yes - POLST Patient has POLST: Yes PD ED PE NORMAL - Vitals Vital signs reviewed: Yes - Abdomen Abdomen: Soft, Non tender - Extremities Extremities: Other (Both legs are edematous with Charcot joints. The right leg though has warmth and redness from the ankle up to mid calf.) Results - Vitals Vitals: Vital Signs - 24 hr 10/28/19 15:27 Temperature 36.0 C L Heart Rate 55 L Respiratory 20 Rate Blood Pressure 126/66 O2 Saturation 96 Oxygen O2 Source Room air - Labs Labs: Laboratory Tests 10/28/19 10/28/19 10/28/19 16:00 16:00 16:00 WBC 6.9 RBC 4.30 Hgb 12.6 Hct 40.8 MCV 94.9 MCH 29.3 MCHC 30.9 L RDW 14.0 Plt Count 201 MPV 9.0 Neut # (Auto) 4.7 Lymph # (Auto) 1.4 L [place] # (Auto) 0.6 Eos # (Auto) 0.2 Baso # (Auto) 0.0 Absolute Nucleated RBC 0.00 Nucleated RBC % 0.0 PT 16.4 H INR 1.5 H Sodium 141 Potassium 4.2 Chloride 100 L Carbon Dioxide 32 Anion Gap 9.0 BUN 18 Creatinine 1.2 H Estimated GFR (MDRD) 44 L Glucose 111 H Calcium 9.9 PD MEDICAL DECISION MAKING - ED course ED course: Turns out the patient may not have been slated to come to the emergency department, but due to some miscommunication between the senior care and here she checked into the emergency department. She actually had an outpatient order for the ultrasound which was done and negative for DVT. Her examination is consistent with cellulitis though and she is started on Keflex. Departure - Departure Disposition: Home, Self Care Clinical Impression: Subtherapeutic international normalized ratio (INR), Cellulitis of right leg Condition: Good Record reviewed to determine appropriate education?: Yes Instructions: Cellulitis Dc Prescriptions: Cephalexin [Keflex] 500 mg PO Q6H #28 capsule Comments: Payal was seen in the emergency department today for right leg pain and redness that is apparently a cellulitis. An ultrasound was done which was negative for DVT. She is started on Keflex. Call your doctor to arrange a follow-up appointment, make the next available appointment. In the interim, return anytime if worse or if new symptoms develop.
[2019-10-28 15:43] VITALS: BP 126/66
[2019-10-28 16:08] LABS: BASOPHILS % (AUTO) 0.6 %; EOSINOPHILS # (AUTO) 0.2 10^3/uL (0.0-0.7); EOSINOPHILS % (AUTO) 2.7 %; HGB - HEMOGLOBIN 12.6 g/dL (12.0-16.0); LYMPHOCYTES # (AUTO) 1.4 10^3/uL (1.5-3.5); LYMPHOCYTES % (AUTO) 19.9 %; MEAN CORPUSCULAR HEMOGLOBIN 29.3 pg (27.0-31.0); MEAN CORPUSCULAR HGB CONC 30.9 g/dL (32.0-36.0); MEAN CORPUSCULAR VOLUME 94.9 fL (81.0-99.0); MONOCYTES # (AUTO) 0.6 10^3/uL (0.0-1.0); MONOCYTES % (AUTO) 8.8 %; NEUTROPHILS # (AUTO) 4.7 10^3/uL (1.5-6.6); NEUTROPHILS % (AUTO) 67.9 %; PLT - PLATELET COUNT 201 10^3/uL (130-450); WHITE BLOOD COUNT 6.9 x10^3/uL (4.8-10.8)
[2019-10-28 16:18] LABS: CALCIUM 9.9 mg/dL (8.5-10.3); CREATININE 1.2 mg/dL (0.4-1.0)
[2019-10-28 16:26] LABS: INR 1.5 (0.8-1.2); PT - PROTHROMBIN TIME 16.4 secs (9.9-12.6)
[2019-10-28] MEDS ORDERED: cephALEXin 250 MG CAPSULE PO STA (17:10)
--- NOTE | 2019-10-28 17:23 | Ultrasound Report ---
Reason: RLE SWELLING Procedure Date: 10/28/2019 Accession Number: [id number] / [id number] Procedure: US - Duplex Ext Veins Right CPT Code: Final Report FULL RESULT: EXAM: RIGHT LOWER EXTREMITY VENOUS ULTRASOUND EXAM DATE: 10/28/2019 05:09 PM. CLINICAL HISTORY: RLE SWELLING. COMPARISON: None. TECHNIQUE: Real-time sonographic vascular imaging was performed by the ground control approach technician through the lower extremity utilizing both color-flow and Doppler spectral analysis. Multiple chain sales representative static images were saved for review. FINDINGS: Common Femoral Vein (CFV): Normal. CFV-GSV Junction: Normal. Profunda Femoral Vein (PFV): Normal. Femoral Vein (FV) Prox: Normal. Distal superficial femoral vein was not optimally seen. Femoral Vein (FV) Mid: Normal. Femoral Vein (FV) Dist: Normal. Popliteal Vein: Normal. Posterior Tibial Veins: Not optimally seen. Peroneal Veins: Not optimally seen. Contralateral Side CFV: Normal. Other: None. IMPRESSION: No evidence for deep venous thrombosis, to the extent seen. RADIA
== END 2019-10-28 18:08 | disposition home or self-care (01) ==
LOC: EDUNIT# → ED 15:11
DX: L03.115 Cellulitis of right lower limb (principal); R79.1 Abnormal coagulation profile; I48.91 Unspecified atrial fibrillation; Z79.01 Long term (current) use of anticoagulants; E10.9 Type 1 diabetes mellitus without complications; H54.7 Unspecified visual loss
CPT/HCPCS: 36415; 80048; 85025; 85610; 93971; 99283; 99284; A9270

== ENCOUNTER 2019-11-12 23:16 | Outpatient (CLI) | payer MEDICARE, OTHER, MEDICAID | END 2019-11-12 23:59 | disposition critical access hospital (66) | LOC: EMS 23:16 | PROVIDERS: ATTEND Surgery | DX: M79.89 Other specified soft tissue disorders (principal) | CPT/HCPCS: A0425; A0429 ==

== ENCOUNTER 2019-11-12 23:18 | Emergency (ER) | payer MEDICARE, OTHER, MEDICAID ==
[2019-11-13 00:43] LABS: BASOPHILS # (AUTO) 0.1 10^3/uL (0.0-0.1); BASOPHILS % (AUTO) 0.7 %; EOSINOPHILS # (AUTO) 0.1 10^3/uL (0.0-0.7); EOSINOPHILS % (AUTO) 1.8 %; LYMPHOCYTES % (AUTO) 13.6 %; MEAN CORPUSCULAR HEMOGLOBIN 29.3 pg (27.0-31.0); MEAN CORPUSCULAR HGB CONC 31.3 g/dL (32.0-36.0); MEAN CORPUSCULAR VOLUME 93.7 fL (81.0-99.0); MEAN PLATELET VOLUME 9.6 fL (7.9-10.8); MONOCYTES % (AUTO) 13.5 %; PLT - PLATELET COUNT 158 10^3/uL (130-450); RED BLOOD COUNT 4.44 10^6/uL (4.20-5.40); RED CELL DISTRIBUTION WIDTH 13.5 % (12.0-15.0); WHITE BLOOD COUNT 7.2 x10^3/uL (4.8-10.8)
--- NOTE | 2019-11-13 01:46 | ED Physician Documentation ---
History of Present Illness - Stated complaint Stated Complaint: LEFT LEG SWELLING - Chief complaint Chief Complaint: Ext Problem - History obtained from History obtained from: EMS, Caregiver (notes/information from [facility]) - History of Present Illness Timing: Unknown - Additonal information Additional information: sent from [facility] for increasing swelling, redness of LLE. seen earlier this month for cellulitis (RLE), rx keflex. 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 : Incontinence, Chronic bladder infection HEENT: Chronic vision loss Psych: None Musculoskeletal: Osteoarthritis Derm: None - Past Surgical History Past Surgical History: Yes General: Appendectomy /SERVICE EMPLOYEE: Hysterectomy, Breast implants HEENT: Cataracts - Present Medications Home Medications: Ambulatory Orders Medication Instructions Recorded Confirmed Cetirizine [ZyrTEC] 10 mg PO HS 01/19/13 06/15/17 Levothyroxine Sodium [Synthroid] 88 mcg PO DAILY 01/19/13 06/15/17 Timolol 0.5% Ophth Drops [Timoptic 1 drops LEFTEYE BID 01/19/13 06/15/17 0.5% Ophth Drops] Warfarin [Coumadin] 20 mg PO 01/19/13 06/15/17 Docusate Sodium [Dss] 250 mg PO BID PRN 03/09/14 06/15/17 Latanoprost 0.005% Ophth Drops 1 drop LEFTEYE QPM 06/20/14 06/15/17 [Xalatan Ophth Drops] Hydrocodone/Acetaminophen [[place] 1 - 2 tab PO Q6H PRN MDD PAIN 02/02/16 06/15/17 5-325 Tablet] Potassium Chloride 20 meq PO TIDWM 02/02/16 06/15/17 Saccharomyces Boulardii [Florastor] 250 mg PO DAILY 03/20/16 06/15/17 Insulin Glargine,Hum.rec.anlog 15 unit SQ BID 04/09/16 06/15/17 [Lantus] Insulin Lispro [Humalog] 5 unit SUBQ AC 04/09/16 06/15/17 Pantoprazole [Protonix] 40 mg PO DAILY 06/15/17 06/15/17 Cephalexin [Keflex] 500 mg PO Q6H #28 capsule 10/28/19 Clorthalidone 10/28/19 Melatonin 3 mg PO 10/28/19 Saccharomyces Boulardii [Florastor] 250 mg PO 10/28/19 Amox/Clav 875/125 [Augmentin] 1 each PO Q12H #14 tablet 11/13/19 - Allergies Allergies/Adverse Reactions: Allergies Allergy/AdvReac Type Severity Reaction Status Date / Time codeine Allergy Unknown Hallucinati Verified 11/13/19 00:09 ons mites,pollen,horse, cat, Allergy Severe Respiratory Uncoded 11/13/19 00:09 feathers - Social History Does the pt smoke?: No Smoking Status: Never smoker Does the pt drink ETOH?: No Does the pt have substance abuse?: No - Immunizations Immunizations are current?: Yes - POLST Patient has POLST: Yes PD ED PE NORMAL - Vitals Vital signs reviewed: Yes - General General: No acute distress, Other (obese) - HEENT HEENT: Moist mucous membranes - Cardiac Cardiac: RRR - Respiratory Respiratory: No respiratory distress - Abdomen Abdomen: Soft, Non tender PD ED PE EXPANDED - Extremities Extremities: Pedal edema bilateral, Other (confluent erythema distal to left proximal pre-tibial surface, hot to touch and tender to palpation) Results - Vitals Vitals: Oxygen O2 Source Room air - Labs Labs: Laboratory Tests 11/13/19 00:33 WBC 7.2 RBC 4.44 Hgb 13.0 Hct 41.6 MCV 93.7 MCH 29.3 MCHC 31.3 L RDW 13.5 Plt Count 158 MPV 9.6 Neut # (Auto) 5.0 Lymph # (Auto) 1.0 L [place] # (Auto) 1.0 Eos # (Auto) 0.1 Baso # (Auto) 0.1 Absolute Nucleated RBC 0.00 Nucleated RBC % 0.0 PD MEDICAL DECISION MAKING - ED course Complexity details: reviewed old records, reviewed results, re-evaluated patient, considered differential Departure - Departure Disposition: 01 Home, Self Care Clinical Impression: Cellulitis Qualifiers: Site of cellulitis: extremity Site of cellulitis of extremity: lower extremity Laterality: left Qualified Code(s): L03.116 - Cellulitis of left lower limb Condition: Good Instructions: ED Infec Skin Cellulitis Prescriptions: Amox/Clav 875/125 [Augmentin] 1 each PO Q12H #14 tablet Discharge Date/Time: 11/13/19 06:11
[2019-11-13] MEDS ORDERED: cefTRIAXone 1 GM in SODIUM CHLORIDE 0.9% MINIBAG 100 ML IV STA (02:03)
[2019-11-13] MEDS ORDERED: ACETAMINOPHEN 500 MG TABLET PO STA (02:05)
[2019-11-13 05:57] VITALS: BP 134/65
== END 2019-11-13 06:11 | disposition home or self-care (01) ==
LOC: EDUNIT# → ED 23:18
DX: L03.116 Cellulitis of left lower limb (principal); E10.9 Type 1 diabetes mellitus without complications; Z79.4 Long term (current) use of insulin
CPT/HCPCS: 36415; 85025; 96365; 99284; A9270

== ENCOUNTER 2019-11-13 06:18 | Outpatient (CLI) | payer MEDICARE, OTHER, MEDICAID | END 2019-11-13 06:19 | disposition home or self-care (01) | LOC: EMS 06:18 | PROVIDERS: ATTEND Surgery | DX: L03.116 Cellulitis of left lower limb (principal); R41.0 Disorientation, unspecified | CPT/HCPCS: A0425; A0429 ==

== ENCOUNTER 2019-12-07 08:30 | Outpatient (CLI) | payer MEDICARE, OTHER, MEDICAID | END 2019-12-07 23:59 | disposition home or self-care (01) | LOC: LAB.R 08:30 | DX: E03.9 Hypothyroidism, unspecified (principal) | CPT/HCPCS: 84443 ==

== ENCOUNTER 2020-02-06 07:00 | Outpatient (CLI) | payer MEDICARE, OTHER, MEDICAID ==
[2020-02-06 21:15] LABS: BASOPHILS # (AUTO) 0.1 10^3/uL (0.0-0.1); EOSINOPHILS # (AUTO) 0.3 10^3/uL (0.0-0.7); EOSINOPHILS % (AUTO) 4.9 %; HGB - HEMOGLOBIN 13.2 g/dL (12.0-16.0); LYMPHOCYTES # (AUTO) 1.5 10^3/uL (1.5-3.5); MEAN CORPUSCULAR HEMOGLOBIN 28.5 pg (27.0-31.0); MEAN CORPUSCULAR HGB CONC 31.1 g/dL (32.0-36.0); MEAN CORPUSCULAR VOLUME 91.8 fL (81.0-99.0); MEAN PLATELET VOLUME 9.5 fL (7.9-10.8); MONOCYTES # (AUTO) 0.6 10^3/uL (0.0-1.0); MONOCYTES % (AUTO) 10.4 %; NEUTROPHILS # (AUTO) 3.5 10^3/uL (1.5-6.6); NEUTROPHILS % (AUTO) 58.4 %; PLT - PLATELET COUNT 151 10^3/uL (130-450); RED BLOOD COUNT 4.63 10^6/uL (4.20-5.40)
[2020-02-06 21:30] LABS: % IRON SATURATION 14 % (20-50); ALBUMIN 3.5 g/dL (3.2-5.5); ALKALINE PHOSPHATASE 85 IU/L (42-121); ALT ALANINE AMINOTRANSFERASE < 10 IU/L (10-60); AST ASPARTATE AMINOTRANSFERASE 15 IU/L (10-42); BILIRUBIN,TOTAL 0.2 mg/dL (0.2-1.0); BUN - BLOOD UREA NITROGEN 19 mg/dL (6-20); CALCIUM 10.1 mg/dL (8.5-10.3); CARBON DIOXIDE - CO2 32 mmol/L (21-32); CHLORIDE 101 mmol/L (101-111); CREATININE 1.2 mg/dL (0.4-1.0); GLUCOSE 208 mg/dL (70-100); IRON 50 ug/dL (28-170); SODIUM 138 mmol/L (135-145); TOTAL IRON BINDING CAPACITY 354 ug/dL (250-450); TOTAL PROTEIN 6.9 g/dL (6.7-8.2); TRANSFERRIN 253 mg/dL (192-382)
== END 2020-02-06 23:59 | disposition home or self-care (01) ==
LOC: LAB.R 07:00
DX: U07.1 COVID-19 (principal); I48.91 Unspecified atrial fibrillation
CPT/HCPCS: 80053; 83540; 84466; 85025

== ENCOUNTER 2020-02-11 08:00 | Outpatient (CLI) | payer MEDICARE, OTHER, MEDICAID ==
[2020-02-11 16:40] LABS: HB2 TOTAL 13.9 g/dL; HEMOGLOBIN A1C 0.7 g/dL; HEMOGLOBIN A1C % 6.8 % (4.6-6.2)
== END 2020-02-11 23:59 | disposition home or self-care (01) ==
LOC: LAB.R 08:00
PROVIDERS: ATTEND Family Medicine
DX: E11.9 Type 2 diabetes mellitus without complications (principal)
CPT/HCPCS: 83036

== ENCOUNTER 2020-07-22 07:00 | Outpatient (CLI) | payer MEDICARE, OTHER, MEDICAID ==
[2020-07-22 15:27] LABS: BASOPHILS # (AUTO) 0.1 10^3/uL (0.0-0.1); BASOPHILS % (AUTO) 1.2 %; EOSINOPHILS # (AUTO) 0.3 10^3/uL (0.0-0.7); EOSINOPHILS % (AUTO) 4.4 %; LYMPHOCYTES # (AUTO) 1.4 10^3/uL (1.5-3.5); LYMPHOCYTES % (AUTO) 21.3 %; MEAN CORPUSCULAR HEMOGLOBIN 29.9 pg (27.0-31.0); MEAN CORPUSCULAR HGB CONC 31.6 g/dL (32.0-36.0); MEAN CORPUSCULAR VOLUME 94.4 fL (81.0-99.0); MEAN PLATELET VOLUME 10.6 fL (7.9-10.8); MONOCYTES # (AUTO) 0.6 10^3/uL (0.0-1.0); MONOCYTES % (AUTO) 8.4 %; NEUTROPHILS # (AUTO) 4.3 10^3/uL (1.5-6.6); NEUTROPHILS % (AUTO) 64.4 %; PLT - PLATELET COUNT 157 10^3/uL (130-450); RED BLOOD COUNT 5.02 10^6/uL (4.20-5.40); RED CELL DISTRIBUTION WIDTH 13.2 % (12.0-15.0); WHITE BLOOD COUNT 6.7 x10^3/uL (4.8-10.8)
[2020-07-22 15:42] LABS: ALBUMIN 3.6 g/dL (3.2-5.5); ALKALINE PHOSPHATASE 109 IU/L (42-121); ALT ALANINE AMINOTRANSFERASE 12 IU/L (10-60); AST ASPARTATE AMINOTRANSFERASE 17 IU/L (10-42); BILIRUBIN,TOTAL 0.6 mg/dL (0.2-1.0); BUN - BLOOD UREA NITROGEN 16 mg/dL (6-20); CALCIUM 10.8 mg/dL (8.5-10.3); CARBON DIOXIDE - CO2 34 mmol/L (21-32); CHLORIDE 94 mmol/L (101-111); CHOL/HDL RATIO 3.1 (<4.4); CHOLESTEROL 154 mg/dL; GLUCOSE 295 mg/dL (70-100); HDL CHOLESTEROL 49 mg/dL; LDL CHOLESTEROL,CALCULATED 74 mg/dL; LDL/HDL RATIO 1.5 (<4.4); SODIUM 136 mmol/L (135-145); TOTAL PROTEIN 7.3 g/dL (6.7-8.2); VLDL CHOLESTEROL 31 mg/dL
[2020-07-22 15:55] LABS: THYROID STIMULATING HORMONE 1.13 uIU/mL (0.34-5.60)
[2020-07-22 15:57] LABS: FREE T4 (FREE THYROXINE) 1.02 ng/dL (0.58-1.64)
[2020-07-22 19:32] LABS: HEMOGLOBIN A1c% 7.1 % (4.27-6.07)
== END 2020-07-22 23:59 | disposition home or self-care (01) ==
LOC: LAB.R 07:00
DX: U07.1 COVID-19 (principal); E87.6 Hypokalemia; E63.9 Nutritional deficiency, unspecified; I10 Essential (primary) hypertension; E03.9 Hypothyroidism, unspecified; E11.9 Type 2 diabetes mellitus without complications
CPT/HCPCS: 80053; 80061; 83036; 83721; 84439; 84443; 85025

== ENCOUNTER → 2020-10-23 | Outpatient (CLI) | payer MEDICARE, OTHER, MEDICAID ==
[2020-10-23 19:56] LABS: BASOPHILS % (AUTO) 1.1 %; EOSINOPHILS # (AUTO) 0.1 10^3/uL (0.0-0.7); EOSINOPHILS % (AUTO) 3.2 %; HGB - HEMOGLOBIN 13.1 g/dL (12.0-16.0); LYMPHOCYTES # (AUTO) 1.4 10^3/uL (1.5-3.5); LYMPHOCYTES % (AUTO) 36.2 %; MEAN CORPUSCULAR HEMOGLOBIN 29.1 pg (27.0-31.0); MEAN CORPUSCULAR HGB CONC 30.8 g/dL (32.0-36.0); MEAN CORPUSCULAR VOLUME 94.4 fL (81.0-99.0); MEAN PLATELET VOLUME 11.8 fL (7.9-10.8); MONOCYTES # (AUTO) 0.4 10^3/uL (0.0-1.0); MONOCYTES % (AUTO) 10.2 %; NEUTROPHILS # (AUTO) 1.8 10^3/uL (1.5-6.6); PLT - PLATELET COUNT 137 10^3/uL (130-450); RED CELL DISTRIBUTION WIDTH 12.6 % (12.0-15.0); WHITE BLOOD COUNT 3.7 x10^3/uL (4.8-10.8)
[2020-10-23 20:10] LABS: ALBUMIN 3.7 g/dL (3.2-5.5); ALBUMIN/GLOBULIN RATIO 1.1 (1.0-2.2); BILIRUBIN,TOTAL 0.6 mg/dL (0.2-1.0); CALCIUM 10.7 mg/dL (8.5-10.3); CREATININE 1.1 mg/dL (0.4-1.0); MAGNESIUM 2.3 mg/dL (1.7-2.8); TOTAL PROTEIN 7.1 g/dL (6.7-8.2)
[2020-10-23 20:45] LABS: PLATELET ESTIMATE, MANUAL NORMAL (130-450,000) (NORMAL); RBC MORPHOLOGY (MULTIPLE) NORMAL APPEARANCE (NORMAL)
== END ==
LOC: LAB.R 18:28
DX: I48.91 Unspecified atrial fibrillation (principal); R00.1 Bradycardia, unspecified
CPT/HCPCS: 80053; 83735; 85025

== ENCOUNTER → 2020-10-25 | Outpatient (CLI) | payer MEDICARE, OTHER, MEDICAID ==
[2020-10-25 19:48] LABS: BASOPHILS # (AUTO) 0.1 10^3/uL (0.0-0.1); BASOPHILS % (AUTO) 1.2 %; EOSINOPHILS # (AUTO) 0.1 10^3/uL (0.0-0.7); EOSINOPHILS % (AUTO) 2.2 %; HGB - HEMOGLOBIN 12.1 g/dL (12.0-16.0); LYMPHOCYTES # (AUTO) 1.3 10^3/uL (1.5-3.5); LYMPHOCYTES % (AUTO) 31.1 %; MEAN CORPUSCULAR HEMOGLOBIN 28.1 pg (27.0-31.0); MEAN CORPUSCULAR HGB CONC 30.3 g/dL (32.0-36.0); MEAN CORPUSCULAR VOLUME 92.6 fL (81.0-99.0); MEAN PLATELET VOLUME 11.9 fL (7.9-10.8); MONOCYTES # (AUTO) 0.5 10^3/uL (0.0-1.0); MONOCYTES % (AUTO) 11.9 %; NEUTROPHILS # (AUTO) 2.1 10^3/uL (1.5-6.6); NEUTROPHILS % (AUTO) 51.9 %; PLT - PLATELET COUNT 153 10^3/uL (130-450); RED BLOOD COUNT 4.31 10^6/uL (4.20-5.40); RED CELL DISTRIBUTION WIDTH 12.6 % (12.0-15.0); WHITE BLOOD COUNT 4.1 x10^3/uL (4.8-10.8)
[2020-10-25 19:58] LABS: ALBUMIN 3.6 g/dL (3.2-5.5); ALBUMIN/GLOBULIN RATIO 1.2 (1.0-2.2); BILIRUBIN,TOTAL 0.4 mg/dL (0.2-1.0); CALCIUM 10.8 mg/dL (8.5-10.3); CREATININE 1.1 mg/dL (0.4-1.0); MAGNESIUM 2.4 mg/dL (1.7-2.8); TOTAL PROTEIN 6.7 g/dL (6.7-8.2)
== END ==
LOC: LAB.R 00:20
DX: E87.6 Hypokalemia (principal); I48.91 Unspecified atrial fibrillation; R00.1 Bradycardia, unspecified
CPT/HCPCS: 80053; 83735; 85025

== ENCOUNTER 2020-12-13 10:45 | Outpatient (CLI) | payer MEDICARE, OTHER, MEDICAID ==
[2020-12-13 11:22] LABS: CALCIUM 10.3 mg/dL (8.5-10.3); POTASSIUM 5.2 mmol/L (3.5-5.0)
[2020-12-13 12:51] LABS: ESTIMATED AVERAGE GLUCOSE 186 mg/dL (70-100); HEMOGLOBIN A1c% 8.1 % (4.27-6.07)
== END 2020-12-13 23:59 | disposition home or self-care (01) ==
LOC: LAB.R 10:45
DX: E11.9 Type 2 diabetes mellitus without complications (principal); E87.6 Hypokalemia; I10 Essential (primary) hypertension
CPT/HCPCS: 36415; 80048; 83036

== ENCOUNTER 2021-01-19 08:00 | Outpatient (CLI) | payer MEDICARE, OTHER, MEDICAID ==
[2021-01-19 14:21] LABS: BASOPHILS % (AUTO) 0.9 %; EOSINOPHILS # (AUTO) 0.1 10^3/uL (0.0-0.7); EOSINOPHILS % (AUTO) 2.8 %; HCT - HEMATOCRIT 42.3 % (37.0-47.0); HGB - HEMOGLOBIN 13.2 g/dL (12.0-16.0); LYMPHOCYTES # (AUTO) 1.2 10^3/uL (1.5-3.5); LYMPHOCYTES % (AUTO) 26.7 %; MEAN CORPUSCULAR HEMOGLOBIN 28.2 pg (27.0-31.0); MEAN CORPUSCULAR HGB CONC 31.2 g/dL (32.0-36.0); MEAN CORPUSCULAR VOLUME 90.4 fL (81.0-99.0); MEAN PLATELET VOLUME 10.6 fL (7.9-10.8); MONOCYTES # (AUTO) 0.4 10^3/uL (0.0-1.0); MONOCYTES % (AUTO) 8.5 %; NEUTROPHILS # (AUTO) 2.7 10^3/uL (1.5-6.6); NEUTROPHILS % (AUTO) 60.9 %; PLT - PLATELET COUNT 146 10^3/uL (130-450); RED BLOOD COUNT 4.68 10^6/uL (4.20-5.40); WHITE BLOOD COUNT 4.4 x10^3/uL (4.8-10.8)
[2021-01-19 14:42] LABS: ALBUMIN 3.5 g/dL (3.2-5.5); ALBUMIN/GLOBULIN RATIO 1.1 (1.0-2.2); ALKALINE PHOSPHATASE 142 IU/L (42-121); ALT ALANINE AMINOTRANSFERASE 13 IU/L (10-60); AST ASPARTATE AMINOTRANSFERASE 15 IU/L (10-42); BILIRUBIN,TOTAL 0.7 mg/dL (0.2-1.0); BUN - BLOOD UREA NITROGEN 18 mg/dL (6-20); CALCIUM 10.2 mg/dL (8.5-10.3); CARBON DIOXIDE - CO2 28 mmol/L (21-32); CHLORIDE 100 mmol/L (101-111); CHOL/HDL RATIO 2.7 (<4.4); CHOLESTEROL 118 mg/dL; GFR - MDRD 54 (>89); GLUCOSE 225 mg/dL (70-100); HDL CHOLESTEROL 44 mg/dL; LDL CHOLESTEROL,CALCULATED 40 mg/dL; LDL/HDL RATIO 0.9 (<4.4); POTASSIUM 4.9 mmol/L (3.5-5.0); SODIUM 134 mmol/L (135-145); TOTAL PROTEIN 6.6 g/dL (6.7-8.2); TRIGLYCERIDES 168 mg/dL; VLDL CHOLESTEROL 34 mg/dL
[2021-01-19 14:45] LABS: ESTIMATED AVERAGE GLUCOSE 209 mg/dL (70-100); HEMOGLOBIN A1c% 8.9 % (4.27-6.07)
[2021-01-19 14:51] LABS: THYROID STIMULATING HORMONE 0.84 uIU/mL (0.34-5.60)
== END 2021-01-19 23:59 | disposition home or self-care (01) ==
LOC: LAB.R 08:00
DX: E11.9 Type 2 diabetes mellitus without complications (principal); E87.6 Hypokalemia; E63.9 Nutritional deficiency, unspecified; E56.9 Vitamin deficiency, unspecified; D64.9 Anemia, unspecified; Z79.4 Long term (current) use of insulin; E03.9 Hypothyroidism, unspecified
CPT/HCPCS: 80053; 80061; 82550; 83036; 83721; 84443; 85025

== ENCOUNTER 2021-02-16 08:00 | Outpatient (CLI) | payer MEDICARE, OTHER, MEDICAID ==
[2021-02-16 08:44] LABS: BILIRUBIN,URINE NEGATIVE (NEGATIVE); GLUCOSE, URINE (UA) >=1000 mg/dL (NEGATIVE); KETONES,URINE (UA) NEGATIVE (NEGATIVE); LEUKOCYTE ESTERASE, URINE MODERATE (NEGATIVE); NITRITE,URINE POSITIVE (NEGATIVE); OCCULT BLOOD,URINE SMALL (NEGATIVE); PH,URINE 5.5 PH (5.0-7.5); PROTEIN,URINE TRACE mg/dL (NEGATIVE); UROBILINOGEN,URINE 0.2 (NORMAL) E.U./dL (NORMAL)
[2021-02-16 08:54] LABS: BACTERIA,URINE Many /HPF (None Seen); CLARITY,URINE SL. CLOUDY (CLEAR); RBC,URINE None Seen /HPF (0-5); SQUAMOUS EPITHELIAL CELL,UR RARE Squamous (<= Few); WBC,URINE >25 /HPF (0-5)
[2021-02-16 08:55] LABS: WBC CLUMPS,URINE PRESENT
== END 2021-02-16 23:59 | disposition home or self-care (01) ==
LOC: LAB.R 08:00
PROVIDERS: ATTEND Family Medicine
DX: N39.0 Urinary tract infection, site not specified (principal)
CPT/HCPCS: 81001; 87077; 87086; 87181

== ENCOUNTER 2021-02-22 15:12 | Outpatient (CLI) | payer MEDICARE, OTHER, MEDICAID | END 2021-02-22 15:13 | disposition critical access hospital (66) | LOC: EMS 15:12 | DX: R73.9 Hyperglycemia, unspecified (principal) | CPT/HCPCS: A0425; A0427 ==

== ENCOUNTER 2021-02-22 15:17 | Inpatient (IN) | payer MEDICARE, OTHER, MEDICAID ==
[2021-02-22 16:20] LABS: BASOPHILS % (AUTO) 0.2 %; EOSINOPHILS # (AUTO) 0.4 10^3/uL (0.0-0.7); EOSINOPHILS % (AUTO) 2.3 %; HGB - HEMOGLOBIN 12.8 g/dL (12.0-16.0); LYMPHOCYTES # (AUTO) 0.5 10^3/uL (1.5-3.5); LYMPHOCYTES % (AUTO) 2.9 %; MEAN CORPUSCULAR HEMOGLOBIN 29.2 pg (27.0-31.0); MEAN CORPUSCULAR VOLUME 91.3 fL (81.0-99.0); MONOCYTES # (AUTO) 0.9 10^3/uL (0.0-1.0); MONOCYTES % (AUTO) 5.4 %; NEUTROPHILS # (AUTO) 14.9 10^3/uL (1.5-6.6); NEUTROPHILS % (AUTO) 88.7 %; PLT - PLATELET COUNT 164 10^3/uL (130-450); RED BLOOD COUNT 4.38 10^6/uL (4.20-5.40); RED CELL DISTRIBUTION WIDTH 14.4 % (12.0-15.0); WHITE BLOOD COUNT 16.8 x10^3/uL (4.8-10.8)
--- NOTE | 2021-02-22 16:29 | ED Physician Documentation ---
History of Present Illness - Stated complaint Stated Complaint: F - Chief complaint Chief Complaint: UTI - History obtained from History obtained from: EMS - Additonal information Additional information: 75-year-old woman is a detention resident. Has a history of A. fib on Xarelto, type 1 diabetes, recurrent UTIs, Charcot deformities and strokes. She was sent here because of recent diagnosis of UTI initially treated with Macrobid and subsequently changed to Cipro. Culture grew ESBL E. coli and Proteus mirabilis both of which were sensitive to Cipro. Despite that seems to be getting sicker with elevated blood sugars that they are unable to control the detention. No history is available from the patient. Review of Systems Unable to obtain: AMS, Confused, Dementia PD PAST MEDICAL HISTORY - Past Medical History Cardiovascular: Atrial fibrillation Respiratory: None Endocrine/Autoimmune: Type 1 diabetes GI: None MAINTENANCE CHIEF: None : Incontinence, Chronic bladder infection HEENT: Chronic vision loss Psych: None Musculoskeletal: Osteoarthritis Derm: None - Past Surgical History Past Surgical History: Yes General: Appendectomy /MAINTENANCE CHIEF: Hysterectomy, Breast implants HEENT: Cataracts - Present Medications Home Medications: Ambulatory Orders Medication Instructions Recorded Confirmed Levothyroxine Sodium [Synthroid] 88 mcg PO DAILY 01/19/13 02/22/21 Docusate Sodium [Dss] 250 mg PO BID PRN 03/09/14 02/22/21 Latanoprost 0.005% Ophth Drops 1 drop LEFTEYE QPM 06/20/14 02/22/21 [Xalatan Ophth Drops] Hydrocodone/Acetaminophen [[place] 1 - 2 tab PO Q6H PRN MDD PAIN 02/02/16 02/22/21 5-325 Tablet] Potassium Chloride 20 meq PO TIDWM 02/02/16 02/22/21 Saccharomyces Boulardii [Florastor] 250 mg PO DAILY 03/20/16 02/22/21 Insulin Glargine,Hum.rec.anlog 12 unit SQ BID 04/09/16 02/22/21 [Lantus] Insulin Lispro [Humalog] 5 unit SUBQ AC 04/09/16 02/22/21 Ciprofloxacin HCl [Cipro] 500 mg PO 02/22/21 Insulin NPH Human [NovoLIN N] 38 unit SQ DAILY 02/22/21 02/22/21 Rivaroxaban [Xarelto] 15 mg PO DAILY 02/22/21 02/22/21 - Allergies Allergies/Adverse Reactions: Allergies Allergy/AdvReac Type Severity Reaction Status Date / Time codeine Allergy Unknown Hallucinati Verified 11/13/19 00:09 ons mites,pollen,horse, cat, Allergy Severe Respiratory Uncoded 11/13/19 00:09 feathers - Social History Does the pt smoke?: No Smoking Status: Never smoker Does the pt drink ETOH?: No Does the pt have substance abuse?: No - Immunizations Immunizations are current?: Yes - POLST Patient has POLST: Yes PD ED PE NORMAL - Vitals Vital signs reviewed: Yes - General General: Other (Nonverbal, responsive to pain but does not follow instructions) - HEENT HEENT: PERRL, EOMI, Other (Dry mucous membranes) - Neck Neck: Supple, no meningeal sign, No bony TTP - Cardiac Cardiac: Strong equal pulses, Other (Irregularly irregular) - Respiratory Respiratory: No respiratory distress, Clear bilaterally - Abdomen Abdomen: Normal bowel sounds, Soft, Non tender - Back Back: No CVA TTP, No spinal TTP - Derm Derm: Normal color, Warm and dry - Extremities Extremities: No edema, No calf tenderness / cord - Neuro Eye Opening: Spontaneous Motor: Withdraws to Pain Verbal: None GCS Score: 9 Results - Vitals Vitals: Vital Signs - 24 hr 02/22/21 02/22/21 02/22/21 15:23 16:29 16:36 Temperature 36.2 C L 36.9 C 36.3 C L Heart Rate 89 87 95 Respiratory 32 H 24 26 H Rate Blood Pressure 126/70 120/77 120/77 O2 Saturation 95 98 97 02/22/21 02/22/21 02/22/21 16:59 17:29 17:30 Temperature 36.5 C 36.4 C L Heart Rate 90 83 84 Respiratory 22 30 H 30 H Rate Blood Pressure 140/73 H 127/89 H 123/89 H O2 Saturation 98 98 98 02/22/21 02/22/21 02/22/21 18:00 18:30 18:33 Temperature 36.6 C Heart Rate 85 87 96 Respiratory 25 H 28 H Rate Blood Pressure 125/74 123/88 H 123/88 H O2 Saturation 96 98 Oxygen O2 Source Nasal cannula Oxygen Flow Rate 4 - Labs Labs: Laboratory Tests 0602/22/21 02/22/21 16:14 16:15 16:15 WBC 16.8 H RBC 4.38 Hgb 12.8 Hct 40.0 MCV 91.3 MCH 29.2 MCHC 32.0 RDW 14.4 Plt Count 164 MPV 11.0 H Neut # (Auto) 14.9 H Lymph # (Auto) 0.5 L [place] # (Auto) 0.9 Eos # (Auto) 0.4 Baso # (Auto) 0.0 Absolute Nucleated RBC 0.00 Nucleated RBC % 0.0 Sodium 132 L Potassium 6.4 H* Chloride 97 L Carbon Dioxide 24 Anion Gap 11.0 BUN 79 H Creatinine 2.5 H Estimated GFR (MDRD) 19 L Glucose 535 H* Lactic Acid 3.6 H* Calcium 10.7 H Urine Color Urine Clarity Urine pH Ur Specific [place] Urine Protein Urine Glucose (UA) Urine Ketones Urine Occult Blood Urine Nitrite Urine Bilirubin Urine Urobilinogen Ur Leukocyte Esterase Urine RBC Urine WBC Ur Squamous Epith Cells Urine Bacteria Urine Mucus Ur Microscopic Review Urine Culture Comments 02/22/21 16:30 WBC RBC Hgb Hct MCV MCH MCHC RDW Plt Count MPV Neut # (Auto) Lymph # (Auto) [place] # (Auto) Eos # (Auto) Baso # (Auto) Absolute Nucleated RBC Nucleated RBC % Sodium Potassium Chloride Carbon Dioxide Anion Gap BUN Creatinine Estimated GFR (MDRD) Glucose Lactic Acid Calcium Urine Color YELLOW Urine Clarity SL. CLOUDY Urine pH 6.5 Ur Specific [place] 1.010 Urine Protein TRACE Urine Glucose (UA) >=1000 H Urine Ketones NEGATIVE Urine Occult Blood LARGE H Urine Nitrite NEGATIVE Urine Bilirubin NEGATIVE Urine Urobilinogen 0.2 (NORMAL) Ur Leukocyte Esterase TRACE H Urine RBC 6-10 H Urine WBC 6-10 H Ur Squamous Epith Cells FEW Squamous Urine Bacteria Few Urine Mucus Few Strands Ur Microscopic Review INDICATED Urine Culture Comments INDICATED PD MEDICAL DECISION MAKING - ED course ED course: Straight cath UA over a liter out suggesting urinary retention. 75-year-old woman with dementia and strokes presents with known UTI which does not seem to be improving and now significant acute renal failure and hyperglycemia. She was cultured up and given 2 L of IV crystalloid here. She is not in septic shock. She does have evidence of acute kidney injury. She was given IV cefepime here. Work-up demonstrates fecal impaction and the nurse placed a enema. Also potentially early stercoral colitis. Spoke with Dr. Dunn for admission at 7:20 PM. - Sepsis Event Sepsis Onset Date: 02/22/21 Sepsis Onset Time: 17:30 Current Stage of Sepsis: Severe sepsis Initial Hypotension: Not hypotensive Possible source of Sepsis: Genitourinary Mental/Cognitive Status: Normal for patient, Lethargic Reason for not giving 30ml/kg crystalloid fluids: Not in septic shock Capillary refill: Less than 2 seconds Peripheral Pulse Strength: 3+ Normal Peripheral Pulse Location: Radial Departure - Departure Disposition: [facility] DC/Xfer Clinical Impression: Diabetes mellitus with hyperglycemia, GAGE (acute kidney injury), Anticoagulation adequate with anticoagulant therapy, Fecal impaction, Stercoral ulcer of rectum Sepsis Qualifiers: Sepsis type: sepsis due to unspecified organism Sepsis acute organ dysfunction status: with acute organ dysfunction Severe sepsis acute organ dysfunction type: acute renal failure Severe sepsis shock status: without septic shock UTI (urinary tract infection) Qualifiers: Urinary tract infection type: site unspecified Hematuria presence: without hematuria Qualified Code(s): N39.0 - Urinary tract infection, site not specified Condition: Serious
[2021-02-22 16:41] LABS: BILIRUBIN,URINE NEGATIVE (NEGATIVE); GLUCOSE, URINE (UA) >=1000 mg/dL (NEGATIVE); KETONES,URINE (UA) NEGATIVE (NEGATIVE); LEUKOCYTE ESTERASE, URINE TRACE (NEGATIVE); NITRITE,URINE NEGATIVE (NEGATIVE); OCCULT BLOOD,URINE LARGE (NEGATIVE); PH,URINE 6.5 PH (5.0-7.5); PROTEIN,URINE TRACE mg/dL (NEGATIVE); UROBILINOGEN,URINE 0.2 (NORMAL) E.U./dL (NORMAL)
[2021-02-22 16:42] LABS: CLARITY,URINE SL. CLOUDY (CLEAR)
[2021-02-22 16:45] LABS: CALCIUM 10.7 mg/dL (8.5-10.3); CREATININE 2.5 mg/dL (0.4-1.0)
[2021-02-22 16:48] LABS: POTASSIUM 6.4 mmol/L (3.5-5.0)
[2021-02-22] MEDS ORDERED: SODIUM CHLORIDE 0.9% 2,000 ML IV STA (16:48)
[2021-02-22 16:51] LABS: BACTERIA,URINE Few /HPF (None Seen); MUCUS,URINE Few Strands; SQUAMOUS EPITHELIAL CELL,UR FEW Squamous (<= Few)
[2021-02-22] MEDS ORDERED: CEFEPIME 2 GM in SODIUM CHLORIDE 0.9% MINIBAG 100 ML IV STA (17:19)
[2021-02-22] MEDS ORDERED: INSULIN REGULAR HUMAN 100 UNIT/1 ML 10 ML MDV IVP STA (17:40)
--- NOTE | 2021-02-22 18:05 | CT Report ---
PROCEDURE: Abdomen/Pelvis WO INDICATIONS: UTI, sepsis, acute kidney injury TECHNIQUE: Noncontrast 5 mm thick sections acquired from the diaphragms to the symphysis. 5 mm coronal and sagi ttal reformats were then performed. For radiation dose reduction, the following was used: automated exposure control, adjustment of mA and/or kV according to patient size. COMPARISON: CT abdomen and pelvis 03/20/2016 FINDINGS: Image quality: Exam limited by lack of IV contrast. Lung bases: Dependent atelectasis. Solid organs: Normal unenhanced CT appearance of the liver and spleen. Atrophy of the pancreas. No pe ripancreatic fluid or inflammatory changes. Contracted gallbladder containing some hyperdense materia l probably sludge or stones. Adrenal glands are within normal limits. Atrophic bilateral kidneys. No perinephric fat stranding. No hydronephrosis or hydroureter. Peritoneum and bowel: Fluid and air distention of the stomach. Moderate amount of fluid pools within the visualized lower esophagus. No abnormally dilated loop of bowel. Large volume of stool throughout the colon particularly in the rectum where there is some wall thickening which may reflect fecal imp action with potentially a component of early stercoral colitis. Nodes and vessels: No threshold enlarged intra-abdominal, retroperitoneal, pelvic, or inguinal lymph node. Genitourinary: Normal urinary bladder wall thickness. Bones: No suspicious bony lesions. No vertebral body compression fractures. IMPRESSION: Very large volume of inspissated stool within the rectum and sigmoid colon, with some rectal wall thi ckening and inflammatory change suggestive of impaction with possible early stercoral colitis. Fluid and air distention of the stomach with a moderate amount of fluid pooling within the visualized lower esophagus. Reviewed by: Larry Mills MD on 02/22/2021 6:04 PM PDT Approved by: Larry Mills MD on 02/22/2021 6:04 PM PDT Station ID: [id number]
[2021-02-22 19:25] LABS: B. PARAPERTUSSIS- RESP PCR PAN NOT DETECTED; B. PERTUSSIS- RESP PCR PANEL NOT DETECTED; C. PNEUMONIAE- RESP PCR PANEL NOT DETECTED; CORONAVIRUS 229E-RESP PCR NOT DETECTED; CORONAVIRUS HKU1-RESP PCR NOT DETECTED; CORONAVIRUS NL63-RESP PCR NOT DETECTED; CORONAVIRUS OC43-RESP PCR NOT DETECTED; HUMAN METAPNEUMOVIRUS NOT DETECTED; INFLUENZA A- RESP PCR PANEL NOT DETECTED; INFLUENZA B - RESP PCR PANEL NOT DETECTED; M. PNEUMONIAE- RESP PCR PANEL NOT DETECTED; PARAINFLUENZA VIRUS 1 NOT DETECTED; PARAINFLUENZA VIRUS 2 NOT DETECTED; PARAINFLUENZA VIRUS 3 NOT DETECTED; PARAINFLUENZA VIRUS 4 NOT DETECTED; RHINOVIRUS/ENTEROVIRUS NOT DETECTED; RSV- RESP PCR PANEL NOT DETECTED; SARS-CoV-2 -RESP PCR PANEL NOT DETECTED
[2021-02-22] MEDS ORDERED: SODIUM CHLORIDE FLUSH 0.9% 10 ML SYRINGE IVP PRN (19:56)
[2021-02-22] MEDS ORDERED: ONDANSETRON 4 MG/2 ML VIAL IVP PRN (19:56)
--- NOTE | 2021-02-22 20:05 | HISTORY & PHYSICAL EXAMINATION ---
Chief Complaint - Chief Complaint Chief Complaint: Elevated glucose at [facility], on treatment for UTI History of Present Illness - Admitted From Admitted From:: ED - History Obtained From History obtained from: ED Provider, who got Hx from at bedside - History of Present Illness HPI Comment/Other: This is a 75-year-old white female with a history of prior strokes, dementia, A. fib on Xarelto, diabetes mellitus on insulin, hypothyroidism on replacement who lives at [facility]). The patient has been on Cipro recently for a UTI that grew 2 bacteria. The staff found her to have a glucose of greater than 500 today and she was sent to the ER. She is minimally communicative and mostly lethargic (is chronically sleepy, according to the ) and ER evaluation showed bladder scan with an enlarged bladder. She was straight cathed and 1 L of urine was removed. The urinalysis was abnormal with Large occult blood, trace leukocyte esterase, 6-10 WBC and few bacteria. She had CT of the abdomen that showed a fecal impaction that was probably the cause of the urinary retention and also possible early colitis. Her labs ret urned showing a creatinine of 2.5 which is usually 1.0, potassium very elevated at 6.4, lactic acid elevated at 3.6. She received IV fluids, IV insulin, IV cefepime and was ordered to have an enema and/or disimpaction. Patient is being admitted to the ICU for severe sepsis from a UTI causing GAGE an d also acute comorbidities of fecal impaction, urinary retention, hyperkalemia, hyperglycemia in a diabetic. Her POLST indicates DNR with limited interventions desired. 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: reports: None : reports: Incontinence, Chronic bladder infection HEENT: reports: Chronic vision loss Psych: reports: None Musculoskeletal: reports: Osteoarthritis Derm: reports: None MRSA Hx?: No - Past Surgical History General: reports: Appendectomy /HOUSEKEEPER CLEANING COOKING: reports: Hysterectomy, Breast implants HEENT: reports: Cataracts - Family & Social History Family History: Other family: Alive and Well (Known, patient is obtunded, did not provide details) Living arrangement: longterm Social History Notes: Her baseline functional capacity and habits at [facility] is unknown. - Substance History Use: Uses substance without health or social issues: Other (Unknown alcohol and smoking Hx) - POLST Patient has POLST: Yes POLST Status: DNR Meds/Allgy - Home Medications Home Medications: Ambulatory Orders Medication Instructions Recorded Confirmed Levothyroxine Sodium [Synthroid] 88 mcg PO DAILY 01/19/13 02/22/21 Docusate Sodium [Dss] 250 mg PO BID PRN 03/09/14 02/22/21 Latanoprost 0.005% Ophth Drops 1 drop LEFTEYE QPM 06/20/14 02/22/21 [Xalatan Ophth Drops] Hydrocodone/Acetaminophen [[place] 1 - 2 tab PO Q6H PRN MDD PAIN 02/02/16 02/22/21 5-325 Tablet] Potassium Chloride 20 meq PO TIDWM 02/02/16 02/22/21 Saccharomyces Boulardii [Florastor] 250 mg PO DAILY 03/20/16 02/22/21 Insulin Glargine,Hum.rec.anlog 12 unit SQ BID 04/09/16 02/22/21 [Lantus] Insulin Lispro [Humalog] 5 unit SUBQ AC 04/09/16 02/22/21 Ciprofloxacin HCl [Cipro] 500 mg PO 02/22/21 Insulin NPH Human [NovoLIN N] 38 unit SQ DAILY 02/22/21 02/22/21 Rivaroxaban [Xarelto] 15 mg PO DAILY 02/22/21 02/22/21 - Allergies Allergies/Adverse Reactions: Allergies Allergy/AdvReac Type Severity Reaction Status Date / Time codeine Allergy Unknown Hallucinati Verified 11/13/19 00:09 ons mites,pollen,horse, cat, Allergy Severe Respiratory Uncoded 11/13/19 00:09 feathers Review of Systems - Constitutional Constitutional: reports: Fatigue (Usually sleeps all day, according to the .) - All Other Systems All Other Systems: reports: Other (Not obtained since the patient is obtunded, not communicative and the is not at bedside and there are no records from [facility]) Exam - Vital Signs Vital Signs: Vital Signs x48h Temp Pulse Resp BP Pulse Ox 02/22/21 19:30 91 36 H 131/82 H 94 02/22/21 19:00 96.4 C H 85 31 H 131/84 H 98 02/22/21 18:33 96 123/88 H 02/22/21 18:30 87 28 H 123/88 H 98 02/22/21 18:00 36.6 C 85 25 H 125/74 96 02/22/21 17:30 84 30 H 123/89 H 98 02/22/21 17:29 36.4 C L 83 30 H 127/89 H 98 02/22/21 16:59 36.5 C 90 22 140/73 H 98 02/22/21 16:36 36.3 C L 95 26 H 120/77 97 02/22/21 16:29 36.9 C 87 24 120/77 98 02/22/21 15:23 36.2 C L 89 32 H 126/70 95 - Physical Exam General Appearance: positive: No acute distress, Other (Sleepy, opens eyes spontaneously but not to name) Eyes Bilateral: positive: Other (Closed, sleeping) ENT: positive: No signs of dehydration Neck: positive: Thyroid nml, No JVD Respiratory: positive: No respiratory distress, Breath sounds nml Cardiovascular: positive: Irregularly irregular Abdomen: positive: Nml bowel sounds, No distention Skin: positive: No rash, Warm, Dry Extremities: positive: Other (Trace pre-tibial edema) Neurologic/Psychiatric: positive: Other (Obtunded vs sleeping, moves extrem spontaneously) Sepsis Event Note (H) - Evaluation Current Stage of Sepsis: Severe sepsis Possible source of Sepsis: positive: Genitourinary Sepsis Associated Organ Dysfunction: Acute renal failure - Sepsis Criteria Sepsis Criteria: Recorded Respiratory Rate greater than 20, WBC count greater than 12,000 or less than 4000, Metabolic: lactate > 2 mmol/L Conclusion/Plan - Problem List (1) Severe sepsis Conclusion/Plan: Lactic acid, WBC and resp rate elevated and urinalysis shows a UTI. She has started to get IV fluids, she is not hypotensive therefore does not need 30 mgs/kg crystalloids infused. Will recheck her lactic acid level in 3 hours and follow L.A. until it is in a n ormal range. Continue with empiric IV cefepime for the UTI. Await blood and urine culture results Because she also has early colitis on CT imaging, will also order IV Flagyl (2) UTI (urinary tract infection) Conclusion/Plan: Patient was just recently on antibiotics for a UTI being treated at the senior living, she was on Macrobid but the bacteria was sensitive to Cipro therefore it was changed. Her presentation in the ER however shows there is persistent UTI by urinalysis. We will start empiric IV Cefepime. Await blood and urine culture results. Qualifiers: Urinary tract infection type: site unspecified Hematuria presence: with hematuria Qualified Code(s): N39.0 - Urinary tract infection, site not specified; R31.9 - Hematuria, unspecified (3) GAGE (acute kidney injury) Conclusion/Plan: Baseline creatinine is 1.0, today it is 2.5. Etiology is probably acute urinary retention. Will avoid nephrotoxins. We will insert Balderas to allow for drainage in order Balderas care. Follow BUN/creatinine daily (4) Hyperkalemia Conclusion/Plan: Etiology is from her GAGE and also her hyperglycemia. Insulin with fluids was given in the ER. Will follow her serum potassium closely, in the ICU on telemetry. Continue to treat with D5 and insulin as needed to correct the high potassium. Avoid nephrotoxins and potassium-containing compounds (5) Acute urinary retention Conclusion/Plan: At presentation a straight cath was done and 1 L of urine was released CT abdomen showed the etiology of her urinary retention appears to be fecal impaction. Enema and disimpaction has been ordered. We will order Balderas catheter to allow for drainage. (6) Hyperglycemia due to diabetes mellitus Conclusion/Plan: Etiology appears to be sepsis/UTI. Will continue with long-acting insulin and also order sliding scale insulin. Follow fingerstick [id number] glucose checks Obtain A1c with morning labs. (7) Hyponatremia Conclusion/Plan: This is likely pseudohyponatremia related to her high glucose level versus hypoeuvolemic hyponatremia from her infection. Treat with IV saline, will start at 83.33 cc/h. Follow her BMP (8) Fecal impaction Conclusion/Plan: Enema and disimpaction has been ordered. She may need repeat imaging if there is no successful bowel movement>>> there was a large normal brown BM. (9) Colitis Conclusion/Plan: The CT imaging said possible early colitis. Will also use IV Flagyl for treatment. Will allow for bowel rest and only give clear liquids for diet (10) Chronic a-fib Conclusion/Plan: Her heart rate is currently controlled. She was on Xarelto, a DOAC which is renally dosed, for stroke prevention. We will stop the Xarelto while she is in GAGE. We will use therapeutic dose of Heparin sq for stroke prevention and DVT prophylaxis temporarily (11) Dementia Conclusion/Plan: Dementia per history and probably was contributed to by prior strokes. reported to the ICU nurse that she normally sleeps a lot. Unknown if today's obtundation is her usual baseline mental status or if she is more obtunded because of the infection, uremia and the hyperglycemia. Her POLST says DNR and limited interventions have been chosen. Will request our Social Workers and our hole puncher strap to contact [facility] and obtain records of her current functional status. (12) Hypothyroid Conclusion/Plan: Check TSH. Continue her dose of thyroid, adjust if needed according to her TSH result. - Lab Results Fish Bones: 02/22/21 16:15 02/22/21 20:40
--- OUTSIDE RECORDS SUMMARY | 2021-02-22 20:10 | EXTERNAL MEDICAL SUMMARY RPT | Continuity of Care Document ---
:1945 Demographics Phone Unavailable Preferred Language Unknown Marital Status Unknown L[employer] Affiliation Unknown Race Unknown Ethnic Group Unknown Author Organization [place] Address [address] [phone] Phone Allergies Encounters Medications Problems Results
[2021-02-22 20:12] LABS: ALBUMIN 3.4 g/dL (3.2-5.5); BILIRUBIN,DIRECT 0.1 mg/dL (0.1-0.5); BILIRUBIN,TOTAL 0.6 mg/dL (0.2-1.0); PHOSPHORUS 2.6 mg/dL (2.5-4.6); TOTAL PROTEIN 6.6 g/dL (6.7-8.2)
[2021-02-22] MEDS ORDERED: INSULIN GLARGINE 300 UNIT/3 ML PEN SUBQ SCH (21:00)
[2021-02-22] MEDS: SODIUM CHLORIDE 0.9% 1,000 ML IV SCH (21:00)
[2021-02-22] MEDS ORDERED: INSULIN ASPART 300 UNIT/3 ML PEN SUBQ SCH (21:00)
[2021-02-22] MEDS: FAMOTIDINE 20 MG/2 ML VIAL IVP SCH (21:07)
[2021-02-22] MEDS: metroNIDAZOLE 500 MG/100 ML 500 MG/100 ML BAG IV SCH (21:08)
[2021-02-22] MEDS: SODIUM CHLORIDE FLUSH 0.9% 10 ML SYRINGE IVP SCH (21:56)
[2021-02-22] MEDS ORDERED: INSULIN GLARGINE 300 UNIT/3 ML PEN SUBQ ONE (23:00)
[2021-02-23] MEDS: metroNIDAZOLE 500 MG/100 ML 500 MG/100 ML BAG IV SCH ×3 (05:01→19:47)
[2021-02-23 05:31] LABS: BASOPHILS % (AUTO) 0.2 %; EOSINOPHILS # (AUTO) 0.5 10^3/uL (0.0-0.7); EOSINOPHILS % (AUTO) 3.1 %; HCT - HEMATOCRIT 37.1 % (37.0-47.0); HGB - HEMOGLOBIN 11.8 g/dL (12.0-16.0); LYMPHOCYTES % (AUTO) 6.4 %; MEAN CORPUSCULAR HEMOGLOBIN 28.9 pg (27.0-31.0); MEAN CORPUSCULAR HGB CONC 31.8 g/dL (32.0-36.0); MEAN CORPUSCULAR VOLUME 90.7 fL (81.0-99.0); MEAN PLATELET VOLUME 10.4 fL (7.9-10.8); MONOCYTES # (AUTO) 1.1 10^3/uL (0.0-1.0); MONOCYTES % (AUTO) 7.6 %; NEUTROPHILS # (AUTO) 12.2 10^3/uL (1.5-6.6); NEUTROPHILS % (AUTO) 82.3 %; PLT - PLATELET COUNT 159 10^3/uL (130-450); RED BLOOD COUNT 4.09 10^6/uL (4.20-5.40); RED CELL DISTRIBUTION WIDTH 14.5 % (12.0-15.0); WHITE BLOOD COUNT 14.9 x10^3/uL (4.8-10.8)
[2021-02-23 05:42] LABS: CALCIUM 11.1 mg/dL (8.5-10.3); CREATININE 1.6 mg/dL (0.4-1.0); POTASSIUM 4.4 mmol/L (3.5-5.0)
[2021-02-23] MEDS: LEVOTHYROXINE 88 MCG TABLET PO SCH (06:33)
[2021-02-23 07:04] LABS: MAGNESIUM 2.3 mg/dL (1.7-2.8); PHOSPHORUS 1.8 mg/dL (2.5-4.6)
--- NOTE | 2021-02-23 07:39 | PHARMACY PROGRESS NOTE ---
- Best Possible Medication History Admit Date and Time: 02/22/211944 Processed by: Nursing Medication History completed: Yes (MED REC COMPLETED BY NURSING) As the person ultimately responsible for medication therapy, providers are able to order a medication from an existing home medication list in [facility] via the "Reconcile Routine" prior to Confirmation of that medication by academic support specialist. Such practice is discouraged except when the physician, in their clinical judgment, deems that a medical need exists for a medication without regard to previous use.
--- NOTE | 2021-02-23 07:56 | PROVIDER PROGRESS NOTE ---
Assessment/Plan - Problem List (1) Severe sepsis Assessment/Plan: Stable/improving. Secondary to UTI. On cefepime 1 g every 24 hours. Blood and urine cultures pending Lactic acid is down to 2.1 IV hydration with normal saline at 83 mL/h. (2) UTI (urinary tract infection) Qualifiers: Urinary tract infection type: site unspecified Hematuria presence: with hematuria Qualified Code(s): N39.0 - Urinary tract infection, site not specified; R31.9 - Hematuria, unspecified Assessment/Plan: On cefepime 1 g every 24 hours. Blood and urine cultures pending IV hydration with normal saline at 83 mL/h. (3) GAGE (acute kidney injury) Assessment/Plan: Creatinine at presentation was 2.5. Baseline creatinine is 1.0. There has been improvement of creatinine to 1.6 Elevated creatinine most likely due to UTI and possibly Urinary retention due to fecal impaction. We will continue cefepime 1 g IV every 24 hours. Continue gentle IV hydration with normal saline at 83 mL/h (4) Acute urinary retention Assessment/Plan: Due to fecal impaction. Initial straight cath done at time of admission resulted in 1 L of urine output. Enema and disimpaction ordered Balderas catheter in place. (5) Chronic a-fib Assessment/Plan: Currently rate controlled. Patient Xarelto held due to acute kidney injury. On Heparin 5000 units subcu twice daily (6) Dementia Assessment/Plan: Dementia per history and probably was contributed to by prior strokes. at bedside is unable to give a reliable account about the patient's recent mental status. The patient has been at [facility] and he has not seen her in over 10 days. When last he saw her they were able to carry on a conversation. She gets around in a wheelchair. Will reach out to [facility] for more input on patient's functional status. CT of the brain without contrast ordered. (8) Hyperglycemia due to diabetes mellitus Assessment/Plan: This was likely confounded by patient's infection/UTI. Patient's hemoglobin A1c was 9.1. Lantus 12 units subcu twice daily ordered. Sliding scale insulin and Accu-Cheks. (9) Hyperkalemia Assessment/Plan: Resolved. Current potassium level is 4.4. Patient has been administered insulin for hyperglycemia as well. Patient is receiving IV hydration with normal saline at 83 mL/h. (10) Hypothyroid Assessment/Plan: On Synthroid 88 mcg p.o. daily AC (11) Colitis Assessment/Plan: Due to fecal impaction. Disimpaction and enema ordered. Patient was started on Flagyl. We will continue for now. Gentle IV hydration with normal saline. (12) Hyponatremia Assessment/Plan: Resolved. Sodium is currently 141 This is likely pseudohyponatremia due to hyperglycemia with a blood glucose of 500 Continue gentle hydration with normal saline at 83 mL/h. - Current Meds Current Meds: Current Medications Generic Name Dose Route Start Last Admin Trade Name Freq PRN Reason Stop Dose Admin Famotidine 20 mg 02/22/21 21:00 02/22/21 21:07 Famotidine 20 Mg/2 Ml Vial IVP 20 mg BID RANDALL Administration Sodium Chloride 1,000 mls @ 83.333 mls/hr 02/22/21 20:00 02/23/21 07:00 Normal Saline 0.9% IV 83.333 mls/hr .Q12H RANDALL Infusion Metronidazole 500 mg in 100 mls @ 100 mls/hr 02/22/21 20:00 02/23/21 06:16 Flagyl 500 Mg/100 Ml IV Infused Q8H RANDALL Infusion Levothyroxine Sodium 88 mcg 02/23/21 07:00 02/23/21 06:33 Levothyroxine 88 Mcg Tablet PO 88 mcg QDAC RANDALL Administration Sodium Chloride 10 ml 02/23/21 01:00 02/22/21 21:56 Sodium Chloride Flush 0.9% 10 Ml Syringe IVP 10 ml 0100,0900,1700 RANDALL Administration - Lab Result Fish Bone Diagrams: 02/23/21 05:24 02/23/21 05:24 - Additional Planning My Orders: My Active Orders 02/23/21 08:00 Neutra-Phos [K-Phos Neutral] 250 mg PO TIDWM Subjective - Subjective Patient Reports: Other (Patient opens eyes to verbal stimuli and is able to move extremities but does not respond to questions asked or follow commands. reports that she is blind.) Objective Vital Signs: Vital Signs - 24 hr 02/22/21 02/22/21 02/22/21 15:23 16:29 16:36 Temperature 36.2 C L 36.9 C 36.3 C L Heart Rate 89 87 95 Heart Rate [ Monitoring electrodes] Respiratory 32 H 24 26 H Rate Blood Pressure 126/70 120/77 120/77 Blood Pressure [Right Brachial artery] O2 Saturation 95 98 97 02/22/21 02/22/21 02/22/21 16:59 17:29 17:30 Temperature 36.5 C 36.4 C L Heart Rate 90 83 84 Heart Rate [ Monitoring electrodes] Respiratory 22 30 H 30 H Rate Blood Pressure 140/73 H 127/89 H 123/89 H Blood Pressure [Right Brachial artery] O2 Saturation 98 98 98 02/22/21 02/22/21 02/22/21 18:00 18:30 18:33 Temperature 36.6 C Heart Rate 85 87 96 Heart Rate [ Monitoring electrodes] Respiratory 25 H 28 H Rate Blood Pressure 125/74 123/88 H 123/88 H Blood Pressure [Right Brachial artery] O2 Saturation 96 98 02/22/21 02/22/21 02/22/21 19:00 19:30 20:00 Temperature 36.0 C L Heart Rate 85 91 85 Heart Rate [ Monitoring electrodes] Respiratory 31 H 36 H 25 H Rate Blood Pressure 131/84 H 131/82 H 125/83 H Blood Pressure [Right Brachial artery] O2 Saturation 98 94 96 02/22/21 02/22/21 02/22/21 20:30 20:45 21:00 Temperature 37 C Heart Rate Heart Rate [ 88 81 85 Monitoring electrodes] Respiratory 31 H 35 H 36 H Rate Blood Pressure Blood Pressure 142/60 H 138/80 H 137/79 H [Right Brachial artery] O2 Saturation 100 100 100 02/22/21 02/22/21 02/23/21 21:30 22:00 01:00 Temperature 37 C Heart Rate Heart Rate [ 80 86 90 Monitoring electrodes] Respiratory 33 H 33 H 37 H Rate Blood Pressure Blood Pressure 140/72 H 145/74 H 153/72 H [Right Brachial artery] O2 Saturation 94 96 98 02/23/21 05:00 Temperature 37.5 C Heart Rate Heart Rate [ 70 Monitoring electrodes] Respiratory 30 H Rate Blood Pressure Blood Pressure 149/92 H [Right Brachial artery] O2 Saturation 97 Oxygen O2 Source Nasal cannula Oxygen Flow Rate 4 I&O (Last 24 Hrs): Intake and Output Totals x24h 02/21/21 02/22/21 02/23/21 23:59 23:59 23:59 Intake Total 2366.666 866.664 Output Total 3673 1160 Balance -233.334 -293.336 General: Other (Not oriented to place, time or reason. Opens eyes to verbal stimuli only) HEENT: Atraumatic Neck: Supple, No JVD Neuro: Non Focal Cardiovascular: Regular rate, No murmurs Respiratory: Chest non-tender, No respiratory distress, Breath sounds nml Abdomen: Normal bowel sounds, Soft, No tenderness, No masses Extremities: No clubbing, No cyanosis, No edema, No tenderness/swelling Skin: No rashes, No breakdown, No significant lesion - Results Results: Laboratory Results WBC 14.9 x10^3/uL (4.8-10.8) H 02/23/21 05:24 RBC 4.09 10^6/uL (4.20-5.40) L 02/23/21 05:24 Hgb 11.8 g/dL (12.0-16.0) L 02/23/21 05:24 Hct 37.1 % (37.0-47.0) 02/23/21 05:24 MCV 90.7 fL (81.0-99.0) 02/23/21 05:24 MCH 28.9 pg (27.0-31.0) 02/23/21 05:24 MCHC 31.8 g/dL (32.0-36.0) L 02/23/21 05:24 RDW 14.5 % (12.0-15.0) 02/23/21 05:24 Plt Count 159 10^3/uL (130-450) 02/23/21 05:24 MPV 10.4 fL (7.9-10.8) 02/23/21 05:24 Neut # (Auto) 12.2 10^3/uL (1.5-6.6) H 02/23/21 05:24 Lymph # (Auto) 1.0 10^3/uL (1.5-3.5) L 02/23/21 05:24 [place] # (Auto) 1.1 10^3/uL (0.0-1.0) H 02/23/21 05:24 Eos # (Auto) 0.5 10^3/uL (0.0-0.7) 02/23/21 05:24 Baso # (Auto) 0.0 10^3/uL (0.0-0.1) 02/23/21 05:24 Absolute Nucleated RBC 0.00 x10^3/uL 02/23/21 05:24 Nucleated RBC % 0.0 /100WBC 02/23/21 05:24 Sodium 141 mmol/L (135-145) 02/23/21 05:24 Potassium 4.4 mmol/L (3.5-5.0) 02/23/21 05:24 Chloride 105 mmol/L (101-111) 02/23/21 05:24 Carbon Dioxide 27 mmol/L (21-32) 02/23/21 05:24 Anion Gap 9.0 (6-13) 02/23/21 05:24 BUN 75 mg/dL (6-20) H 02/23/21 05:24 Creatinine 1.6 mg/dL (0.4-1.0) H 02/23/21 05:24 Estimated GFR (MDRD) 31 (>89) L 02/23/21 05:24 Glucose 299 mg/dL (70-100) H 02/23/21 05:24 Lactic Acid 2.1 mmol/L (0.5-2.2) 02/23/21 05:24 Calcium 11.1 mg/dL (8.5-10.3) H 02/23/21 05:24 Phosphorus 1.8 mg/dL (2.5-4.6) L 02/23/21 05:24 Magnesium 2.3 mg/dL (1.7-2.8) 02/23/21 05:24 Total Bilirubin 0.6 mg/dL (0.2-1.0) 02/22/21 16:48 Direct Bilirubin 0.1 mg/dL (0.1-0.5) 02/22/21 16:48 AST 25 IU/L (10-42) 02/22/21 16:48 ALT 18 IU/L (10-60) 02/22/21 16:48 Alkaline Phosphatase 117 IU/L (42-121) 02/22/21 16:48 Total Protein 6.6 g/dL (6.7-8.2) L 02/22/21 16:48 Albumin 3.4 g/dL (3.2-5.5) 02/22/21 16:48 Globulin 3.2 g/dL (2.1-4.2) 02/22/21 16:48 TSH 1.32 uIU/mL (0.34-5.60) 02/23/21 05:24 Urine Color YELLOW 02/22/21 16:30 Urine Clarity SL. CLOUDY (CLEAR) 02/22/21 16:30 Urine pH 6.5 PH (5.0-7.5) 02/22/21 16:30 Ur Specific [employer] 1.010 (1.002-1.030) 02/22/21 16:30 Urine Protein TRACE mg/dL (NEGATIVE) 02/22/21 16:30 Urine Glucose (UA) >=1000 mg/dL (NEGATIVE) H 02/22/21 16:30 Urine Ketones NEGATIVE mg/dL (NEGATIVE) 02/22/21 16:30 Urine Occult Blood LARGE (NEGATIVE) H 02/22/21 16:30 Urine Nitrite NEGATIVE (NEGATIVE) 02/22/21 16:30 Urine Bilirubin NEGATIVE (NEGATIVE) 02/22/21 16:30 Urine Urobilinogen 0.2 (NORMAL) E.U./dL (NORMAL) 02/22/21 16:30 Ur Leukocyte Esterase TRACE (NEGATIVE) H 02/22/21 16:30 Urine RBC 6-10 /HPF (0-5) H 02/22/21 16:30 Urine WBC 6-10 /HPF (0-5) H 02/22/21 16:30 Ur Squamous Epith Cells FEW Squamous (<= Few) 02/22/21 16:30 Urine Bacteria Few /HPF (None Seen) 02/22/21 16:30 Urine Mucus Few Strands 02/22/21 16:30 Ur Microscopic Review INDICATED 02/22/21 16:30 Urine Culture Comments INDICATED 02/22/21 16:30 Nasal Adenovirus (PCR) NOT DETECTED 02/22/21 18:00 Nasal B. parapertussis DNA (PCR) NOT DETECTED 02/22/21 18:00 Nasal Coronavir 229E PCR NOT DETECTED 02/22/21 18:00 Nasal Coronavir HKU1 PCR NOT DETECTED 02/22/21 18:00 Nasal Coronavir NL63 PCR NOT DETECTED 02/22/21 18:00 Nasal Coronavir OC43 PCR NOT DETECTED 02/22/21 18:00 Nasal Enterovir/Rhinovir PCR NOT DETECTED 02/22/21 18:00 Nasal Influenza B PCR NOT DETECTED 02/22/21 18:00 Nasal Influenza A PCR NOT DETECTED 02/22/21 18:00 Nasal Parainfluen 1 PCR NOT DETECTED 02/22/21 18:00 Nasal Parainfluen 2 PCR NOT DETECTED 02/22/21 18:00 Nasal Parainfluen 3 PCR NOT DETECTED 02/22/21 18:00 Nasal Parainfluen 4 PCR NOT DETECTED 02/22/21 18:00 Nasal RSV (PCR) NOT DETECTED 02/22/21 18:00 Nasal Screen MRSA (PCR) NEGATIVE (NEGATIVE) 02/22/21 20:40 Nasal B.pertussis DNA PCR NOT DETECTED 02/22/21 18:00 Nasal C.pneumoniae (PCR) NOT DETECTED 02/22/21 18:00 Tom Human Metapneumo PCR NOT DETECTED 02/22/21 18:00 Nasal M.pneumoniae (PCR) NOT DETECTED 02/22/21 18:00 Nasal SARS-CoV-2 (PCR) NOT DETECTED 02/22/21 18:00 Sepsis Event Note (H) - Evaluation Current Stage of Sepsis: Severe sepsis Possible source of Sepsis: positive: Genitourinary - Sepsis Criteria Sepsis Criteria: Recorded Respiratory Rate greater than 20, WBC count greater than 12,000 or less than 4000, Metabolic: lactate > 2 mmol/L ABX Reporting Has patient been on IV antibiotics over the past 48 hours?: Yes
[2021-02-23] MEDS ORDERED: POTASSIUM PHOSPHATE 15 MMOL in SODIUM CHLORIDE 0.9% 250 ML IV ONE (08:00)
[2021-02-23] MEDS ORDERED: INSULIN ASPART 300 UNIT/3 ML PEN SUBQ SCH (08:00)
[2021-02-23] MEDS: INSULIN ASPART 300 UNIT/3 ML PEN SUBQ SCH ×4 (08:20→20:55)
[2021-02-23] MEDS: HEPARIN 5,000 UNIT/ML VIAL SUBQ SCH ×2 (08:20→20:55)
[2021-02-23] MEDS: SODIUM CHLORIDE FLUSH 0.9% 10 ML SYRINGE IVP SCH ×2 (08:22→17:11)
[2021-02-23] MEDS: NEUTRA-PHOS 250 MG TABLET PO SCH ×3 (08:55→17:11)
[2021-02-23] MEDS: SACCHAROMYCES BOULARDII 250 MG CAPSULE PO SCH (08:56)
[2021-02-23] MEDS ORDERED: INSULIN GLARGINE HUM REC ANLOG 100 UNIT/ML SQ SCH (09:00)
[2021-02-23] MEDS: SODIUM CHLORIDE 0.9% 1,000 ML IV SCH (09:02)
[2021-02-23] MEDS: FAMOTIDINE 20 MG/2 ML VIAL IVP SCH ×2 (09:11→20:55)
[2021-02-23] MEDS: INSULIN GLARGINE 300 UNIT/3 ML PEN SUBQ SCH ×2 (09:11→20:55)
[2021-02-23 12:40] LABS: ESTIMATED AVERAGE GLUCOSE 214 mg/dL (70-100); HEMOGLOBIN A1c% 9.1 % (4.27-6.07)
--- NOTE | 2021-02-23 15:56 | CT Report ---
PROCEDURE: HEAD WO INDICATIONS: altered mental status TECHNIQUE: Noncontrast 4.5 mm thick angled axial sections acquired from the foramen magnum to the vertex. For r adiation dose reduction, the following was used: automated exposure control, adjustment of mA and/or kV according to patient size. COMPARISON: Prior head CT 09/19/2019.. FINDINGS: Image quality: Excellent. CSF spaces: Basal cisterns are patent. No extra-axial fluid collections. Ventricles are normal in size and shape. Brain: No midline shift. No intracranial masses or hemorrhage. Garcia-white matter interface is norm al. Skull and face: Calvarium and visualized facial bones are intact, without suspicious lesions. Sinuses: Visualized sinuses and mastoids are clear. IMPRESSION: Moderate microvascular atherosclerotic change in the deep white matter of each hemispher e, expected for age. No source of new onset altered mental status is found. Reviewed by: Bertin Marrufo MD on 02/23/2021 2:55 PM STEPHANIE Approved by: Bertin Marrufo MD on 02/23/2021 2:55 PM [email or web address] Station ID: [id number]
[2021-02-23] MEDS ORDERED: CEFEPIME 1 GM in SODIUM CHLORIDE 0.9% MINIBAG 100 ML IV SCH (18:00)
[2021-02-24] MEDS: SODIUM CHLORIDE 0.9% 1,000 ML IV SCH ×3 (00:04→19:59)
[2021-02-24] MEDS: SODIUM CHLORIDE FLUSH 0.9% 10 ML SYRINGE IVP SCH ×3 (02:27→17:02)
[2021-02-24] MEDS: metroNIDAZOLE 500 MG/100 ML 500 MG/100 ML BAG IV SCH (04:38)
[2021-02-24 04:46] LABS: BASOPHILS % (AUTO) 0.3 %; EOSINOPHILS # (AUTO) 0.1 10^3/uL (0.0-0.7); EOSINOPHILS % (AUTO) 0.7 %; HCT - HEMATOCRIT 33.9 % (37.0-47.0); HGB - HEMOGLOBIN 10.9 g/dL (12.0-16.0); LYMPHOCYTES # (AUTO) 1.1 10^3/uL (1.5-3.5); LYMPHOCYTES % (AUTO) 11.6 %; MEAN CORPUSCULAR HEMOGLOBIN 28.7 pg (27.0-31.0); MEAN CORPUSCULAR HGB CONC 32.2 g/dL (32.0-36.0); MEAN CORPUSCULAR VOLUME 89.2 fL (81.0-99.0); MEAN PLATELET VOLUME 10.4 fL (7.9-10.8); MONOCYTES # (AUTO) 0.6 10^3/uL (0.0-1.0); MONOCYTES % (AUTO) 6.2 %; NEUTROPHILS # (AUTO) 7.3 10^3/uL (1.5-6.6); NEUTROPHILS % (AUTO) 80.6 %; PLT - PLATELET COUNT 162 10^3/uL (130-450); RED CELL DISTRIBUTION WIDTH 14.3 % (12.0-15.0)
[2021-02-24 04:57] LABS: CALCIUM 9.8 mg/dL (8.5-10.3); CREATININE 0.9 mg/dL (0.4-1.0); POTASSIUM 3.1 mmol/L (3.5-5.0)
[2021-02-24 06:28] LABS: MAGNESIUM 1.6 mg/dL (1.7-2.8); PHOSPHORUS 1.8 mg/dL (2.5-4.6)
[2021-02-24] MEDS: POTASSIUM CHLOR 10 MEQ/100 ML 10 MEQ/100 ML BAG IV SCH ×4 (06:55→13:30)
[2021-02-24] MEDS: LEVOTHYROXINE 88 MCG TABLET PO SCH (07:41)
--- NOTE | 2021-02-24 07:44 | PROVIDER PROGRESS NOTE ---
Assessment/Plan - Problem List (1) Severe sepsis Assessment/Plan: Resolved. It was secondary to UTI. Patient's white blood cell count is down to 9 and she is afebrile. We will discontinue cefepime after today. Continue gentle IV hydration. (2) UTI (urinary tract infection) Qualifiers: Urinary tract infection type: site unspecified Hematuria presence: with hematuria Qualified Code(s): N39.0 - Urinary tract infection, site not specified; R31.9 - Hematuria, unspecified Assessment/Plan: Patient's white blood cell count is down to 9 and she is afebrile. We will discontinue cefepime after today. Continue gentle IV hydration. Anticipate discharge back to [facility] tomorrow 02/25/21. (3) GAGE (acute kidney injury) Assessment/Plan: Of. Creatinine today is 0.9 with an estimated GFR of 61. (4) Acute urinary retention Assessment/Plan: Resolved/improved after the patient was able to have a bowel movement. Balderas catheter is also in place. (5) Chronic a-fib Assessment/Plan: Rate controlled. We will resume patient's Xarelto. (6) Dementia Assessment/Plan: Patient is more alert, awake and oriented today. She recognizes family and is able to answer questions as. She also follows commands appropriately. (7) Fecal impaction Assessment/Plan: Resolved. Patient has had multiple bowel movements since admission. (8) Hyperglycemia due to diabetes mellitus Assessment/Plan: Improved. This was likely confounded by patient's infection/UTI. Patient's hemoglobin A1c was 9.1. Lantus 12 units subcu twice daily ordered. Sliding scale insulin and Accu-Cheks. (9) Hyperkalemia Assessment/Plan: Was hypokalemic. Potassium was 3.1. We will replace accordingly. (10) Hypothyroid Assessment/Plan: On Synthroid 88 mcg p.o. daily AC (11) Colitis Assessment/Plan: Due to fecal impaction. Improved/improving. Flagyl was discontinued. Continue gentle IV hydration with normal saline. (12) Hyponatremia Assessment/Plan: Resolved - Current Meds Current Meds: Current Medications Generic Name Dose Route Start Last Admin Trade Name Freq PRN Reason Stop Dose Admin Famotidine 20 mg 02/22/21 21:00 02/23/21 20:55 Famotidine 20 Mg/2 Ml Vial IVP 20 mg BID RANDALL Administration Heparin Sodium (Porcine) 5,000 unit 02/23/21 08:00 02/23/21 20:55 Heparin 5,000 Unit/Ml Vial SUBQ 5,000 unit BID RANDALL Administration Sodium Chloride 1,000 mls @ 83.333 mls/hr 02/22/21 20:00 02/24/21 06:55 Normal Saline 0.9% IV 0 mls/hr .Q12H RANDALL Infusion Metronidazole 500 mg in 100 mls @ 100 mls/hr 02/22/21 20:00 02/24/21 05:45 Flagyl 500 Mg/100 Ml IV Infused Q8H RANDALL Infusion Potassium Chloride 10 meq in 100 mls @ 100 mls/hr 02/24/21 07:00 02/24/21 06:55 Potassium Chloride IV 02/24/21 10:59 100 mls/hr Q1H RANDALL Administration Protocol Insulin Aspart 2 - 10 unit 02/23/21 08:00 02/23/21 20:55 Insulin Aspart 300 Unit/3 Ml Pen SUBQ 4 unit 0800,1200,1700,2100 RANDALL Administration Protocol Insulin Glargine 12 unit 02/23/21 09:00 02/23/21 20:55 Insulin Glargine 300 Unit/3 Ml Pen SUBQ 12 unit BID RANDALL Administration Levothyroxine Sodium 88 mcg 02/23/21 07:00 02/24/21 07:41 Levothyroxine 88 Mcg Tablet PO 88 mcg QDAC RANDALL Administration Saccharomyces Boulardii 250 mg 02/23/21 09:00 02/23/21 08:56 Saccharomyces Boulardii 250 Mg Capsule PO Not Given DAILY RANDALL Sodium Chloride 10 ml 02/23/21 01:00 02/24/21 02:27 Sodium Chloride Flush 0.9% 10 Ml Syringe IVP Not Given 0100,0900,1700 RANDALL - Lab Result Fish Bone Diagrams: 02/24/21 04:41 02/24/21 04:41 Subjective - Subjective Patient Reports: Other (She was more alert, awake and oriented today. She was able to respond to questions asked and follow commands. She requested for chicken broth. She also recognized her family members by name. She has had a couple bowel movements since admission. She denied any other complaints.) Objective Vital Signs: Vital Signs - 24 hr 02/23/21 02/23/21 02/23/21 09:00 13:00 17:00 Temperature 37.5 C 36.8 C 36.7 C Heart Rate [ 72 65 70 Monitoring electrodes] Respiratory 32 H 25 H 20 Rate Blood Pressure 161/87 H 152/89 H 173/83 H [Right Brachial artery] Blood Pressure [Right Radial artery] O2 Saturation 94 93 95 02/23/21 02/24/21 02/24/21 20:04 00:00 04:00 Temperature 36.5 C 36.7 C 36.7 C Heart Rate [ 66 66 67 Monitoring electrodes] Respiratory 25 H 22 21 Rate Blood Pressure 179/79 H 133/68 H [Right Brachial artery] Blood Pressure 113/55 L [Right Radial artery] O2 Saturation 96 98 94 02/24/21 07:34 Temperature 36.3 C L Heart Rate [ Monitoring electrodes] Respiratory Rate Blood Pressure [Right Brachial artery] Blood Pressure [Right Radial artery] O2 Saturation Oxygen O2 Source Room air Oxygen Flow Rate 4 I&O (Last 24 Hrs): Intake and Output Totals x24h 02/22/21 02/23/21 02/24/21 23:59 23:59 23:59 Intake Total 2366.666 2959.685 1019.460 Output Total 2600 3555 1325 Balance -233.334 -595.315 -305.540 General: Alert, Oriented x3, No acute distress HEENT: PERRLA, EOMI Neck: Supple, No JVD Neuro: Alert, Oriented Times 3 Cardiovascular: Regular rate Respiratory: Chest non-tender, No respiratory distress, Breath sounds nml Abdomen: Normal bowel sounds, Soft Extremities: No cyanosis, No edema Skin: No rashes, No breakdown - Results Results: Laboratory Results WBC 9.0 x10^3/uL (4.8-10.8) 02/24/21 04:41 RBC 3.80 10^6/uL (4.20-5.40) L 02/24/21 04:41 Hgb 10.9 g/dL (12.0-16.0) L 02/24/21 04:41 Hct 33.9 % (37.0-47.0) L 02/24/21 04:41 MCV 89.2 fL (81.0-99.0) 02/24/21 04:41 MCH 28.7 pg (27.0-31.0) 02/24/21 04:41 MCHC 32.2 g/dL (32.0-36.0) 02/24/21 04:41 RDW 14.3 % (12.0-15.0) 02/24/21 04:41 Plt Count 162 10^3/uL (130-450) 02/24/21 04:41 MPV 10.4 fL (7.9-10.8) 02/24/21 04:41 Neut # (Auto) 7.3 10^3/uL (1.5-6.6) H 02/24/21 04:41 Lymph # (Auto) 1.1 10^3/uL (1.5-3.5) L 02/24/21 04:41 [place] # (Auto) 0.6 10^3/uL (0.0-1.0) 02/24/21 04:41 Eos # (Auto) 0.1 10^3/uL (0.0-0.7) 02/24/21 04:41 Baso # (Auto) 0.0 10^3/uL (0.0-0.1) 02/24/21 04:41 Absolute Nucleated RBC 0.00 x10^3/uL 02/24/21 04:41 Nucleated RBC % 0.0 /100WBC 02/24/21 04:41 Sodium 141 mmol/L (135-145) 02/24/21 04:41 Potassium 3.1 mmol/L (3.5-5.0) L 02/24/21 04:41 Chloride 107 mmol/L (101-111) 02/24/21 04:41 Carbon Dioxide 28 mmol/L (21-32) 02/24/21 04:41 Anion Gap 6.0 (6-13) 02/24/21 04:41 BUN 40 mg/dL (6-20) H 02/24/21 04:41 Creatinine 0.9 mg/dL (0.4-1.0) 02/24/21 04:41 Estimated GFR (MDRD) 61 (>89) L 02/24/21 04:41 Glucose 180 mg/dL (70-100) H 02/24/21 04:41 Estimat Average Glucose 214 mg/dL (70-100) H 02/23/21 05:24 Hemoglobin A1c % 9.1 % (4.27-6.07) H 02/23/21 05:24 Lactic Acid 2.1 mmol/L (0.5-2.2) 02/23/21 05:24 Calcium 9.8 mg/dL (8.5-10.3) 02/24/21 04:41 Phosphorus 1.8 mg/dL (2.5-4.6) L 02/24/21 04:41 Magnesium 1.6 mg/dL (1.7-2.8) L 02/24/21 04:41 Total Bilirubin 0.6 mg/dL (0.2-1.0) 02/22/21 16:48 Direct Bilirubin 0.1 mg/dL (0.1-0.5) 02/22/21 16:48 AST 25 IU/L (10-42) 02/22/21 16:48 ALT 18 IU/L (10-60) 02/22/21 16:48 Alkaline Phosphatase 117 IU/L (42-121) 02/22/21 16:48 Total Protein 6.6 g/dL (6.7-8.2) L 02/22/21 16:48 Albumin 3.4 g/dL (3.2-5.5) 02/22/21 16:48 Globulin 3.2 g/dL (2.1-4.2) 02/22/21 16:48 TSH 1.32 uIU/mL (0.34-5.60) 02/23/21 05:24 Urine Color YELLOW 02/22/21 16:30 Urine Clarity SL. CLOUDY (CLEAR) 02/22/21 16:30 Urine pH 6.5 PH (5.0-7.5) 02/22/21 16:30 Ur Specific [place] 1.010 (1.002-1.030) 02/22/21 16:30 Urine Protein TRACE mg/dL (NEGATIVE) 02/22/21 16:30 Urine Glucose (UA) >=1000 mg/dL (NEGATIVE) H 02/22/21 16:30 Urine Ketones NEGATIVE mg/dL (NEGATIVE) 02/22/21 16:30 Urine Occult Blood LARGE (NEGATIVE) H 02/22/21 16:30 Urine Nitrite NEGATIVE (NEGATIVE) 02/22/21 16:30 Urine Bilirubin NEGATIVE (NEGATIVE) 02/22/21 16:30 Urine Urobilinogen 0.2 (NORMAL) E.U./dL (NORMAL) 02/22/21 16:30 Ur Leukocyte Esterase TRACE (NEGATIVE) H 02/22/21 16:30 Urine RBC 6-10 /HPF (0-5) H 02/22/21 16:30 Urine WBC 6-10 /HPF (0-5) H 02/22/21 16:30 Ur Squamous Epith Cells FEW Squamous (<= Few) 02/22/21 16:30 Urine Bacteria Few /HPF (None Seen) 02/22/21 16:30 Urine Mucus Few Strands 02/22/21 16:30 Ur Microscopic Review INDICATED 02/22/21 16:30 Urine Culture Comments INDICATED 02/22/21 16:30 Nasal Adenovirus (PCR) NOT DETECTED 02/22/21 18:00 Nasal B. parapertussis DNA (PCR) NOT DETECTED 02/22/21 18:00 Nasal Coronavir 229E PCR NOT DETECTED 02/22/21 18:00 Nasal Coronavir HKU1 PCR NOT DETECTED 02/22/21 18:00 Nasal Coronavir NL63 PCR NOT DETECTED 02/22/21 18:00 Nasal Coronavir OC43 PCR NOT DETECTED 02/22/21 18:00 Nasal Enterovir/Rhinovir PCR NOT DETECTED 02/22/21 18:00 Nasal Influenza B PCR NOT DETECTED 02/22/21 18:00 Nasal Influenza A PCR NOT DETECTED 02/22/21 18:00 Nasal Parainfluen 1 PCR NOT DETECTED 02/22/21 18:00 Nasal Parainfluen 2 PCR NOT DETECTED 02/22/21 18:00 Nasal Parainfluen 3 PCR NOT DETECTED 02/22/21 18:00 Nasal Parainfluen 4 PCR NOT DETECTED 02/22/21 18:00 Nasal RSV (PCR) NOT DETECTED 02/22/21 18:00 Nasal Screen MRSA (PCR) NEGATIVE (NEGATIVE) 02/22/21 20:40 Nasal B.pertussis DNA PCR NOT DETECTED 02/22/21 18:00 Nasal C.pneumoniae (PCR) NOT DETECTED 02/22/21 18:00 Tom Human Metapneumo PCR NOT DETECTED 02/22/21 18:00 Nasal M.pneumoniae (PCR) NOT DETECTED 02/22/21 18:00 Nasal SARS-CoV-2 (PCR) NOT DETECTED 02/22/21 18:00 Sepsis Event Note (H) - Evaluation Current Stage of Sepsis: Severe sepsis Possible source of Sepsis: positive: Genitourinary - Sepsis Criteria Sepsis Criteria: Recorded Respiratory Rate greater than 20, WBC count greater than 12,000 or less than 4000, Metabolic: lactate > 2 mmol/L ABX Reporting Has patient been on IV antibiotics over the past 48 hours?: Yes
[2021-02-24] MEDS: INSULIN ASPART 300 UNIT/3 ML PEN SUBQ SCH ×4 (07:51→20:57)
[2021-02-24] MEDS: CEFEPIME 2 GM in SODIUM CHLORIDE 0.9% MINIBAG 100 ML IV SCH ×2 (07:55→19:59)
[2021-02-24] MEDS ORDERED: MAGNESIUM SULFATE 2 GRAM 2 GM/50 ML BAG IV ONE (08:00)
[2021-02-24] MEDS ORDERED: POTASSIUM PHOSPHATE 15 MMOL in SODIUM CHLORIDE 0.9% 250 ML IV ONE (08:00)
[2021-02-24] MEDS: INSULIN GLARGINE 300 UNIT/3 ML PEN SUBQ SCH ×2 (09:05→21:06)
[2021-02-24] MEDS: FAMOTIDINE 20 MG/2 ML VIAL IVP SCH ×2 (09:07→21:06)
[2021-02-24] MEDS: HEPARIN 5,000 UNIT/ML VIAL SUBQ SCH (09:08)
[2021-02-24] MEDS: SACCHAROMYCES BOULARDII 250 MG CAPSULE PO SCH (09:41)
[2021-02-24] MEDS ORDERED: RIVAROXABAN 15 MG TABLET PO SCH (17:00)
[2021-02-25] MEDS: SODIUM CHLORIDE FLUSH 0.9% 10 ML SYRINGE IVP SCH ×2 (00:25→08:04)
[2021-02-25 04:54] LABS: BASOPHILS % (AUTO) 0.4 %; EOSINOPHILS % (AUTO) 3.6 %; HGB - HEMOGLOBIN 10.5 g/dL (12.0-16.0); LYMPHOCYTES % (AUTO) 21.2 %; MEAN CORPUSCULAR HEMOGLOBIN 28.8 pg (27.0-31.0); MEAN CORPUSCULAR HGB CONC 31.8 g/dL (32.0-36.0); MEAN CORPUSCULAR VOLUME 90.4 fL (81.0-99.0); MONOCYTES % (AUTO) 8.8 %; PLT - PLATELET COUNT 143 10^3/uL (130-450); RED BLOOD COUNT 3.65 10^6/uL (4.20-5.40); RED CELL DISTRIBUTION WIDTH 14.3 % (12.0-15.0); WHITE BLOOD COUNT 7.8 x10^3/uL (4.8-10.8)
[2021-02-25 05:00] LABS: CALCIUM 9.3 mg/dL (8.5-10.3); CREATININE 0.8 mg/dL (0.4-1.0); POTASSIUM 3.1 mmol/L (3.5-5.0)
[2021-02-25 05:05] LABS: ABNORMAL LYMPHS % (MANUAL) 0 %; BAND NEUTROPHILS % (MANUAL) 0 %
[2021-02-25 05:25] LABS: DIFFERENTIAL COMMENT MANUAL DIFFERENTIAL; EOSINOPHILS # (MANUAL) 0.2 10^3/uL (0-0.7); LYMPHOCYTES # (MANUAL) 1.7 10^3/uL (1.5-3.5); LYMPHOCYTES % (MANUAL) 22 %; MONOCYTES # (MANUAL) 0.5 10^3/uL (0.0-1.0); NEUTROPHILS # (MANUAL) 5.4 10^3/uL (1.5-6.6); PLATELET ESTIMATE, MANUAL NORMAL (130-450,000) (NORMAL); PLATELET MORPHOLOGY NORMAL APPEARANCE (NORMAL); RBC MORPHOLOGY (MULTIPLE) NORMAL APPEARANCE (NORMAL); WBC MORPHOLOGY (MULTIPLE) NORMAL APPEARANCE (NORMAL)
[2021-02-25] MEDS: LEVOTHYROXINE 88 MCG TABLET PO SCH (05:58)
[2021-02-25] MEDS ORDERED: MAGNESIUM SULFATE 2 GRAM 2 GM/50 ML BAG IV ONE (07:54)
[2021-02-25] MEDS: SODIUM CHLORIDE 0.9% 1,000 ML IV SCH (07:55)
[2021-02-25] MEDS: CEFEPIME 2 GM in SODIUM CHLORIDE 0.9% MINIBAG 100 ML IV SCH (07:56)
[2021-02-25] MEDS: INSULIN ASPART 300 UNIT/3 ML PEN SUBQ SCH ×2 (07:58→12:03)
[2021-02-25] MEDS: FAMOTIDINE 20 MG/2 ML VIAL IVP SCH (08:02)
[2021-02-25] MEDS: SACCHAROMYCES BOULARDII 250 MG CAPSULE PO SCH (08:28)
[2021-02-25] MEDS: POTASSIUM CHLOR 10 MEQ/100 ML 10 MEQ/100 ML BAG IV SCH ×4 (08:42→12:13)
[2021-02-25] MEDS: INSULIN GLARGINE 300 UNIT/3 ML PEN SUBQ SCH (08:49)
[2021-02-25] MEDS ORDERED: DEXTROSE 5%-0.45% NACL 1,000 ML IV SCH (09:00)
[2021-02-25] MEDS ORDERED: POTASSIUM CHLORIDE 20 MEQ/15 ML UDC PO ONE (09:00)
[2021-02-25] MEDS ORDERED: INSULIN GLARGINE 300 UNIT/3 ML PEN SUBQ ONE (09:00)
--- NOTE | 2021-02-25 12:20 | DISCHARGE SUMMARY ---
Discharge Summary Admit Date: 02/22/21 Discharge Date: 02/25/21 Discharging Provider: Arabella Velasco Primary Care Provider: Kevin Carr Code Status: Do Not Attempt Resuscitation Condition at Discharge: Stable Discharge Disposition: [facility] DC/Xfer Discharge Facility Name: [facility] - DIAGNOSES Admission Diagnoses: Severe sepsis UTI GAGE Hypokalemia Acute urinary retention Hyperglycemia due to diabetes mellitus Hyponatremia Fecal impaction Colitis Chronic A. fib Dementia Hypothyroidism Discharge Diagnoses with Status of Each Condition: Severe sepsis: Acute. Resolved UTI: Acute. Resolved GAGE: Acute. Resolved. This was secondary to GI and bladder outlet obstruction due to fecal impaction/constipation. Hypokalemia: Initially her potassium was high, then low. Her electrolytes were replaced accordingly. Acute urinary retention. Acute. Resolved. This was secondary to GI and bladder outlet obstruction due to fecal impaction/constipation. Hyperglycemia due to diabetes mellitus: Acute on chronic. Improved. Hyponatremia: Acute. Resolved. This was pseudohyponatremia due to hyperglyc emia. Fecal impaction: Resolved. Colitis: Acute. Resolved. This was stercoral colitis secondary to fecal impaction Chronic A. fib: Chronic. Continue home medication Dementia: Chronic. Hypothyroidism: Chronic. Resume home medication - HPI History of Present Illness: This is a 75-year-old white female with a history of prior strokes, dementia, A. fib on Xarelto, diabetes mellitus on insulin, hypothyroidism on replacement who lives at [facility]). The patient has been on Cipro recently for a UTI that grew 2 bacteria. The staff found her to have a glucose of greater than 500 today and she was sent to the ER. She is minimally communicative and mostly lethargic (is chronically sleepy, according to the ) and ER evaluation showed bladder scan with an enlarged bladder. She was straight cathed and 1 L of urine was removed. The urinalysis was abnormal with Large occult blood, trace leukocyte esterase, 6-10 WBC and few bacteria. She had CT of the abdomen that showed a fecal impaction that was probably the cause of the urinary retention and also possible early colitis. Her labs returned showing a creatinine of 2.5 which is usually 1.0, potassium very elevated at 6.4, lactic acid elevated at 3.6. She received IV fluids, IV insulin, IV cefepime and was ordered to have an enema and/or disimpaction. Patient is being admitted to the ICU for severe sepsis from a UTI causing GAGE and also acute comorbidities of fecal impaction, urinary retention, hyperkalemia, hyperglycemia in a diabetic. Her POLST indicates DNR with limited interventions desired. - HOSPITAL COURSE Hospital Course: She was admitted to the ICU and started on vancomycin, cefepime and Flagyl. She also received gentle IV hydration. She had manual disimpaction and enema for the fecal impaction. With resolution of constipation and placement of Balderas catheter high urine output improved. Thus urinary retention resolved. This also resulted in resolution of acute kidney injury. Her hemoglobin A1c was 9.1. Her blood sugar was treated with Lantus and regular insulin. By time of discharge her blood glucose was in the normal range however her diabetic regimen will need to be adjusted by her primary care physician in the outpatient setting for better blood glucose control. On the first day of admission the patient was very somnolent/lethargic and barely responded to verbal stimuli. By the second day she was significantly improved. She could answer questions appropriately follow commands and specifically express her wishes. She also readily recognized family. By the third day of hospital stay she appeared to be at her baseline. However she is very weak and not able to tolerate solid foods. Given her improvement she is being discharged back to [facility] for continued care. She had a CT of the brain done which was unremarkable for any acute intracranial abnormalities. Blood culture eventually grew staph epidermidis. This is thought to be contaminant. As a result we would not continue treating with oral antibiotics. - ALLERGIES Allergies/Adverse Reactions: Allergies Allergy/AdvReac Type Severity Reaction Status Date / Time codeine Allergy Unknown Hallucinati Verified 11/13/19 00:09 ons mites,pollen,horse, cat, Allergy Severe Respiratory Uncoded 11/13/19 00:09 feathers - MEDICATIONS Home Medications: Ambulatory Orders Medication Instructions Recorded Confirmed Levothyroxine Sodium [Synthroid] 88 mcg PO DAILY 01/19/13 02/22/21 Docusate Sodium [Dss] 250 mg PO BID PRN 03/09/14 02/22/21 Latanoprost 0.005% Ophth Drops 1 drop LEFTEYE QPM 06/20/14 02/22/21 [Xalatan Ophth Drops] Hydrocodone/Acetaminophen [[place] 1 - 2 tab PO Q6H PRN MDD PAIN 02/02/16 02/22/21 5-325 Tablet] Potassium Chloride 20 meq PO TIDWM 02/02/16 02/22/21 Saccharomyces Boulardii [Florastor] 250 mg PO DAILY 03/20/16 02/22/21 Insulin Glargine,Hum.rec.anlog 12 unit SQ BID 04/09/16 02/22/21 [Lantus] Insulin Lispro [Humalog] 5 unit SUBQ AC 04/09/16 02/22/21 Ciprofloxacin HCl [Cipro] 500 mg PO 02/22/21 Insulin NPH Human [NovoLIN N] 38 unit SQ DAILY 02/22/21 02/22/21 Rivaroxaban [Xarelto] 15 mg PO DAILY 02/22/21 02/22/21 - PHYSICAL EXAM AT DISCHARGE General Appearance: positive: No acute distress, Alert, Other (Weak) Eyes Bilateral: positive: PERRL, EOMI ENT: positive: No signs of dehydration Neck: positive: No JVD, Trachea midline Respiratory: positive: Chest non-tender, No respiratory distress, Breath sounds nml. negative: Wheezes, Rales Cardiovascular: positive: Irregularly irregular Abdomen: positive: Non-tender, No organomegaly, Nml bowel sounds, No distention. negative: Guarding, Rebound Skin: positive: Color nml, No rash, Warm, Dry Extremities: positive: No pedal edema Neurologic/Psychiatric: positive: Oriented x3, Weakness, Depressed mood/affect - LABS Result Diagrams: 02/25/21 04:39 02/25/21 04:39 - SEPSIS Current Stage of Sepsis: Severe sepsis Possible source of Sepsis: Genitourinary Sepsis Criteria: Recorded Respiratory Rate greater than 20, WBC count greater than 12,000 or less than 4000, Metabolic: lactate > 2 mmol/L
--- NOTE | 2021-02-25 12:35 | Discharge Plan ---
Discharge Plan Problem Reviewed?: Yes Disposition: [facility] DC/Xfer Condition: Stable Diet: Diabetic (Dysphagia Diet) Activity Restrictions: Per Therapy at [facility] Assistance Devices: Wheelchair Health Concerns: You presented to the ED on 02/22/21 with altered mental status for which work-up showed you had sepsis secondary to UTI. Patient initially treated with vancomycin, cefepime and Flagyl. Blood cultures subsequently came back growing staph epidermidis which was suspected to be a contaminant. By the second day of admission your white blood cell count was back to normal. You were afebrile, your lactic acid has resolved and your renal function was back to normal At admission he also had significant constipation and stool impaction for which he received an enema and will also manually disimpacted. By the time of discharge she was having bowel movements with no difficulties. Your blood sugar was also elevated at 500. This was corrected with Lantus and regular insulin. You have a hemoglobin A1c of 9.1. Your diabetic regimen will need to be adjusted for better blood glucose control. By the date of discharge you were able to respond to verbal stimuli, follow commands appropriately and answer questions appropriately. You still have significant weakness for which physical therapy at [facility] where you are returning to will be able to assist in building your strength. You have difficulties with solid food and will be expected to go back to the dysphagia diet you were on at [facility]. Plan of Treatment: You presented to the ED on 02/22/21 with altered mental status for which work-up showed you had sepsis secondary to UTI. Patient initially treated with vancomycin, cefepime and Flagyl. Blood cultures subsequently came back growing staph epidermidis which was suspected to be a contaminant. By the second day of admission your white blood cell count was back to normal. You were afebrile, your lactic acid has resolved and your renal function was back to normal At admission he also had significant constipation and stool impaction for which he received an enema and will also manually disimpacted. By the time of discharge she was having bowel movements with no difficulties. Your blood sugar was also elevated at 500. This was corrected with Lantus and regular insulin. You have a hemoglobin A1c of 9.1. Your diabetic regimen will need to be adjusted for better blood glucose control. By the date of discharge you were able to respond to verbal stimuli, follow commands appropriately and answer questions appropriately. You still have significant weakness for which physical therapy at [facility] where you are returning to will be able to assist in building your strength. You have difficulties with solid food and will be expected to go back to the dysphagia diet you were on at [facility]. Care Goals: You presented to the ED on 02/22/21 with altered mental status for which work-up showed you had sepsis secondary to UTI. Patient initially treated with vancomycin, cefepime and Flagyl. Blood cultures subsequently came back growing staph epidermidis which was suspected to be a contaminant. By the second day of admission your white blood cell count was back to normal. You were afebrile, your lactic acid has resolved and your renal function was back to normal At admission he also had significant constipation and stool impaction for which he received an enema and will also manually disimpacted. By the time of discharge she was having bowel movements with no difficulties. Your blood sugar was also elevated at 500. This was corrected with Lantus and regular insulin. You have a hemoglobin A1c of 9.1. Your diabetic regimen will need to be adjusted for better blood glucose control. By the date of discharge you were able to respond to verbal stimuli, follow commands appropriately and answer questions appropriately. You still have significant weakness for which physical therapy at [facility] where you are returning to will be able to assist in building your strength. You have difficulties with solid food and will be expected to go back to the dysphagia diet you were on at [facility]. No Smoking: If you smoke, Please STOP! Call for help. Follow-up with: Kevin Carr, [Primary Care Provider] -
--- NOTE | 2021-02-25 13:57 | Discharge Plan ---
"Discharge Plan for SNF / [facility] - Discharge Plan And Transition Orders Problem Reviewed?: Yes Disposition: 03 SNF DC/Xfer Condition: Stable Allergies and Adverse Reactions: Allergies Allergy/AdvReac Type Severity Reaction Status Date / Time codeine Allergy Unknown Hallucinati Verified 11/13/19 00:09 ons mites,pollen,horse, cat, Allergy Severe Respiratory Uncoded 11/13/19 00:09 feathers Health Concerns: You presented to the ED on 02/22/21 with altered mental status for which work-up showed you had sepsis secondary to UTI. Patient initially treated with vancomycin, cefepime and Flagyl. Blood cultures subsequently came back growing staph epidermidis which was suspected to be a contaminant. By the second day of admission your white blood cell count was back to normal. You were afebrile, your lactic acid has resolved and your renal function was back to normal At admission he also had significant constipation and stool impaction for which he received an enema and will also manually disimpacted. By the time of discharge she was having bowel movements with no difficulties. Your blood sugar was also elevated at 500. This was corrected with Lantus and regular insulin. You have a hemoglobin A1c of 9.1. Your diabetic regimen will need to be adjusted for better blood glucose control. By the date of discharge you were able to respond to verbal stimuli, follow commands appropriately and answer questions appropriately. You still have significant weakness for which physical therapy at [facility] where you are returning to will be able to assist in building your strength. You have difficulties with solid food and will be expected to go back to the dysphagia diet you were on at [facility]. Plan of Treatment: You presented to the ED on 02/22/21 with altered mental status for which work-up showed you had sepsis secondary to UTI. Patient initially treated with vancomycin, cefepime and Flagyl. Blood cultures subsequently came back growing staph epidermidis which was suspected to be a contaminant. By the second day of admission your white blood cell count was back to normal. You were afebrile, your lactic acid has resolved and your renal function was back to normal At admission he also had significant constipation and stool impaction for which he received an enema and will also manually disimpacted. By the time of discharge she was having bowel movements with no difficulties. Your blood sugar was also elevated at 500. This was corrected with Lantus and regular insulin. You have a hemoglobin A1c of 9.1. Your diabetic regimen will need to be adjusted for better blood glucose control. By the date of discharge you were able to respond to verbal stimuli, follow commands appropriately and answer questions appropriately. You still have significant weakness for which physical therapy at [facility] where you are returning to will be able to assist in building your strength. You have difficulties with solid food and will be expected to go back to the dysphagia diet you were on at [facility]. Care Goals: You presented to the ED on 02/22/21 with altered mental status for which work-up showed you had sepsis secondary to UTI. Patient initially treated with vancomycin, cefepime and Flagyl. Blood cultures subsequently came back growing staph epidermidis which was suspected to be a contaminant. By the second day of admission your white blood cell count was back to normal. You were afebrile, your lactic acid has resolved and your renal function was back to normal At admission he also had significant constipation and stool impaction for which he received an enema and will also manually disimpacted. By the time of discharge she was having bowel movements with no difficulties. Your blood sugar was also elevated at 500. This was corrected with Lantus and regular insulin. You have a hemoglobin A1c of 9.1. Your diabetic regimen will need to be adjusted for better blood glucose control. By the date of discharge you were able to respond to verbal stimuli, follow commands appropriately and answer questions appropriately. You still have significant weakness for which physical therapy at [facility] where you are returning to will be able to assist in building your strength. You have difficulties with solid food and will be expected to go back to the dysphagia diet you were on at [facility]. - SNF / [facility] Transition Orders Admit to (Facility): [facility] Under the care of (Name): Dr Kevin Carr Discharge Diagnosis: Sepsis UTI Urinary retention Fecal impaction Chronic A. fib Diabetes mellitus Hypothyroidism Acute kidney injury Dementia Medicare Certification Statement: I certify that [facility] care is medically necessary on a continuing basis for any of the conditions for which she/he is receiving care du [facility] hospital hospitalization. Notify PCP of admission and forward orders to primary provider for signature. Weight on admission and: Daily Other Notification Orders: Call PCP immediately if patient develops dyspnea, chest pain/tightness or edema. House Bowel Program: Yes Additional Bowel Program Orders: If no BM after 2 days, nurse may give M.O.M. 30ml PO PRN and/or ducolax Supp 1 [place] and/or ANDREZ 250mg P.O., and/or senna 1-2 tabs PO. On day 3 nurse may give repeat above order until residents constipation is resolved. Medication Orders: PLEASE REFER TO THE DISCHARGE MEDICATION LIST. - Diet Type: Diabetic Text[facility] - Therapies | Activity Therapy: Evaluation | Treat if indicated: Swallowing / ST Rehabilitation Potential: Maintain present ADL Functional Activity: Per Therapy Assistance Devices: Wheelchair"
[2021-02-25 14:08] LABS: B. PARAPERTUSSIS- RESP PCR PAN NOT DETECTED; B. PERTUSSIS- RESP PCR PANEL NOT DETECTED; C. PNEUMONIAE- RESP PCR PANEL NOT DETECTED; CORONAVIRUS 229E-RESP PCR NOT DETECTED; CORONAVIRUS HKU1-RESP PCR NOT DETECTED; CORONAVIRUS NL63-RESP PCR NOT DETECTED; CORONAVIRUS OC43-RESP PCR NOT DETECTED; HUMAN METAPNEUMOVIRUS NOT DETECTED; INFLUENZA A- RESP PCR PANEL NOT DETECTED; INFLUENZA B - RESP PCR PANEL NOT DETECTED; M. PNEUMONIAE- RESP PCR PANEL NOT DETECTED; PARAINFLUENZA VIRUS 1 NOT DETECTED; PARAINFLUENZA VIRUS 2 NOT DETECTED; PARAINFLUENZA VIRUS 3 NOT DETECTED; PARAINFLUENZA VIRUS 4 NOT DETECTED; RHINOVIRUS/ENTEROVIRUS NOT DETECTED; RSV- RESP PCR PANEL NOT DETECTED; SARS-CoV-2 -RESP PCR PANEL NOT DETECTED
[2021-02-25 15:27] VITALS: BP 150/75
== END 2021-02-25 14:50 | DRG 872 ==
LOC: EDUNIT# → ED 15:17 → ICU 19:45
PROVIDERS: ADMIT Internal Medicine; ATTEND Internal Medicine
DX: A41.9 Sepsis, unspecified organism (principal); A41.1 Sepsis due to other specified staphylococcus; N17.9 Acute kidney failure, unspecified; N39.0 Urinary tract infection, site not specified; E87.1 Hypo-osmolality and hyponatremia; I48.20 Chronic atrial fibrillation, unspecified; N13.8 Other obstructive and reflux uropathy; R65.20 Severe sepsis without septic shock; I48.91 Unspecified atrial fibrillation; N30.20 Other chronic cystitis without hematuria; E10.65 Type 1 diabetes mellitus with hyperglycemia; Z20.822 Contact with and (suspected) exposure to COVID-19; K56.41 Fecal impaction; K52.9 Noninfective gastroenteritis and colitis, unspecified; E87.6 Hypokalemia; E87.5 Hyperkalemia; R33.9 Retention of urine, unspecified; R31.9 Hematuria, unspecified; K52.89 Other specified noninfective gastroenteritis and colitis; F03.90 Unspecified dementia, unspecified severity, without behavioral disturbance, psychotic disturbance, mood disturbance, and anxiety; E03.9 Hypothyroidism, unspecified; H54.7 Unspecified visual loss; R32 Unspecified urinary incontinence; Z66 Do not resuscitate; Z79.4 Long term (current) use of insulin; Z79.01 Long term (current) use of anticoagulants; Z79.899 Other long term (current) drug therapy; Z86.73 Personal history of transient ischemic attack (TIA), and cerebral infarction without residual deficits
CPT/HCPCS: 36415; 70450; 74176; 80048; 80076; 81001; 83036; 83605; 83735; 84100; 84132; 84443; 85025; 87040; 87086; 87150; 87181; 87631; 96361; 96365; 99285; A9270; J1815; 0202U; 81003

== ENCOUNTER 2021-02-25 14:54 | Outpatient (CLI) | payer MEDICARE, OTHER, MEDICAID | END 2021-02-25 14:55 | disposition home or self-care (01) | LOC: EMS 14:54 | PROVIDERS: ATTEND Internal Medicine | DX: Z74.01 Bed confinement status (principal) | CPT/HCPCS: A0425; A0428 ==

== ENCOUNTER 2021-03-01 08:00 | Outpatient (CLI) | payer MEDICARE, OTHER, MEDICAID ==
[2021-03-01 12:57] LABS: CALCIUM 10.2 mg/dL (8.5-10.3); CREATININE 0.7 mg/dL (0.4-1.0); POTASSIUM 3.8 mmol/L (3.5-5.0)
== END 2021-03-01 23:59 | disposition home or self-care (01) ==
LOC: LAB.R 08:00
DX: E87.6 Hypokalemia (principal); E11.9 Type 2 diabetes mellitus without complications
CPT/HCPCS: 80048

== ENCOUNTER 2021-05-19 08:00 | Outpatient (CLI) | payer MEDICARE, OTHER, MEDICAID ==
[2021-05-19 20:54] LABS: BILIRUBIN,URINE NEGATIVE (NEGATIVE); GLUCOSE, URINE (UA) >=1000 mg/dL (NEGATIVE); KETONES,URINE (UA) NEGATIVE (NEGATIVE); LEUKOCYTE ESTERASE, URINE MODERATE (NEGATIVE); NITRITE,URINE NEGATIVE (NEGATIVE); OCCULT BLOOD,URINE SMALL (NEGATIVE); PROTEIN,URINE NEGATIVE (NEGATIVE); UROBILINOGEN,URINE 0.2 (NORMAL) E.U./dL (NORMAL)
[2021-05-19 21:01] LABS: BACTERIA,URINE Few /HPF (None Seen); CLARITY,URINE SL. CLOUDY (CLEAR); MUCUS,URINE Few Strands; SQUAMOUS EPITHELIAL CELL,UR MANY Squamous (<= Few); WBC,URINE >25 /HPF (0-5)
== END 2021-05-19 23:59 | disposition home or self-care (01) ==
LOC: LAB.R 08:00
PROVIDERS: ATTEND Family Medicine
DX: N39.0 Urinary tract infection, site not specified (principal)
CPT/HCPCS: 81001; 87086

== ENCOUNTER 2021-05-21 08:00 | Outpatient (CLI) | payer MEDICARE, OTHER, MEDICAID ==
[2021-05-21 17:01] LABS: BILIRUBIN,URINE NEGATIVE (NEGATIVE); GLUCOSE, URINE (UA) 500 mg/dL (NEGATIVE); KETONES,URINE (UA) NEGATIVE (NEGATIVE); LEUKOCYTE ESTERASE, URINE SMALL (NEGATIVE); NITRITE,URINE NEGATIVE (NEGATIVE); OCCULT BLOOD,URINE LARGE (NEGATIVE); PROTEIN,URINE NEGATIVE (NEGATIVE); UROBILINOGEN,URINE 0.2 (NORMAL) E.U./dL (NORMAL)
[2021-05-21 17:04] LABS: CLARITY,URINE CLOUDY (CLEAR)
[2021-05-21 17:10] LABS: BACTERIA,URINE Few /HPF (None Seen); MUCUS,URINE Few Strands; RBC,URINE TNTC /HPF (0-5); SQUAMOUS EPITHELIAL CELL,UR FEW Squamous (<= Few)
== END 2021-05-21 23:59 | disposition home or self-care (01) ==
LOC: LAB.R 08:00
PROVIDERS: ATTEND Family Medicine
DX: A41.9 Sepsis, unspecified organism (principal); N39.0 Urinary tract infection, site not specified
CPT/HCPCS: 81001; 81003; 87077; 87086; 87181

== ENCOUNTER 2021-06-14 11:28 | Outpatient (CLI) | payer MEDICARE, OTHER, MEDICAID ==
[2021-06-14 11:39] LABS: BASOPHILS % (AUTO) 0.6 %; EOSINOPHILS # (AUTO) 0.2 10^3/uL (0.0-0.7); EOSINOPHILS % (AUTO) 5.1 %; HCT - HEMATOCRIT 30.4 % (37.0-47.0); HGB - HEMOGLOBIN 8.7 g/dL (12.0-16.0); LYMPHOCYTES % (AUTO) 21.8 %; MEAN CORPUSCULAR HEMOGLOBIN 23.5 pg (27.0-31.0); MEAN CORPUSCULAR HGB CONC 28.6 g/dL (32.0-36.0); MEAN CORPUSCULAR VOLUME 82.2 fL (81.0-99.0); MONOCYTES # (AUTO) 0.5 10^3/uL (0.0-1.0); MONOCYTES % (AUTO) 10.1 %; NEUTROPHILS # (AUTO) 2.9 10^3/uL (1.5-6.6); NEUTROPHILS % (AUTO) 62.2 %; PLT - PLATELET COUNT 177 10^3/uL (130-450); RED CELL DISTRIBUTION WIDTH 15.5 % (12.0-15.0); WHITE BLOOD COUNT 4.7 x10^3/uL (4.8-10.8)
[2021-06-14 12:04] LABS: CALCIUM 10.1 mg/dL (8.5-10.3); POTASSIUM 4.6 mmol/L (3.5-5.0)
[2021-06-14 12:36] LABS: ESTIMATED AVERAGE GLUCOSE 209 mg/dL (70-100); HEMOGLOBIN A1c% 8.9 % (4.27-6.07)
[2021-06-14 12:57] LABS: PLATELET ESTIMATE, MANUAL NORMAL (130-450,000) (NORMAL); PLATELET MORPHOLOGY NORMAL APPEARANCE (NORMAL); SLIDE REVIEW? Indicated; WBC MORPHOLOGY (MULTIPLE) NORMAL APPEARANCE (NORMAL)
== END 2021-06-14 11:29 | disposition home or self-care (01) ==
LOC: LAB 11:28 → LAB.R 11:29
PROVIDERS: ATTEND Family Medicine
DX: E11.9 Type 2 diabetes mellitus without complications (principal); E87.6 Hypokalemia; D64.9 Anemia, unspecified; E78.1 Pure hyperglyceridemia; I48.91 Unspecified atrial fibrillation; Z79.4 Long term (current) use of insulin
CPT/HCPCS: 80048; 82728; 83036; 85025

== ENCOUNTER 2021-07-01 09:38 | Outpatient (CLI) | payer MEDICARE, OTHER, MEDICAID ==
[2021-07-01 09:44] LABS: BASOPHILS % (AUTO) 0.7 %; EOSINOPHILS # (AUTO) 0.3 10^3/uL (0.0-0.7); EOSINOPHILS % (AUTO) 4.6 %; HCT - HEMATOCRIT 31.5 % (37.0-47.0); HGB - HEMOGLOBIN 8.9 g/dL (12.0-16.0); LYMPHOCYTES # (AUTO) 1.1 10^3/uL (1.5-3.5); LYMPHOCYTES % (AUTO) 20.6 %; MEAN CORPUSCULAR HEMOGLOBIN 23.4 pg (27.0-31.0); MEAN CORPUSCULAR HGB CONC 28.3 g/dL (32.0-36.0); MEAN CORPUSCULAR VOLUME 82.9 fL (81.0-99.0); MEAN PLATELET VOLUME 9.9 fL (7.9-10.8); MONOCYTES # (AUTO) 0.5 10^3/uL (0.0-1.0); MONOCYTES % (AUTO) 9.9 %; NEUTROPHILS # (AUTO) 3.5 10^3/uL (1.5-6.6); NEUTROPHILS % (AUTO) 63.8 %; PLT - PLATELET COUNT 181 10^3/uL (130-450); RED CELL DISTRIBUTION WIDTH 18.4 % (12.0-15.0); SLIDE REVIEW? Indicated; WHITE BLOOD COUNT 5.5 x10^3/uL (4.8-10.8)
[2021-07-01 10:01] LABS: ALBUMIN 3.6 g/dL (3.2-5.5); ALBUMIN/GLOBULIN RATIO 1.2 (1.0-2.2); BILIRUBIN,TOTAL 0.6 mg/dL (0.2-1.0); CALCIUM 10.4 mg/dL (8.5-10.3); CREATININE 0.9 mg/dL (0.4-1.0); POTASSIUM 4.3 mmol/L (3.5-5.0); TOTAL PROTEIN 6.7 g/dL (6.7-8.2)
[2021-07-01 10:06] LABS: PLATELET ESTIMATE, MANUAL NORMAL (130-450,000) (NORMAL); PLATELET MORPHOLOGY NORMAL APPEARANCE (NORMAL); RBC MORPHOLOGY (MULTIPLE) 2+ HYPOCHROMASIA (NORMAL); WBC MORPHOLOGY (MULTIPLE) NORMAL APPEARANCE (NORMAL)
== END 2021-07-01 09:39 | disposition home or self-care (01) ==
LOC: LAB.R 09:38
PROVIDERS: ATTEND Family Medicine
DX: E11.9 Type 2 diabetes mellitus without complications (principal); D50.9 Iron deficiency anemia, unspecified
CPT/HCPCS: 80053; 85025

== ENCOUNTER 2021-07-03 10:45 | Outpatient (CLI) | payer MEDICARE, OTHER, MEDICAID ==
[2021-07-03 10:54] LABS: BASOPHILS % (AUTO) 0.9 %; EOSINOPHILS # (AUTO) 0.2 10^3/uL (0.0-0.7); HGB - HEMOGLOBIN 8.8 g/dL (12.0-16.0); LYMPHOCYTES % (AUTO) 23.3 %; MEAN CORPUSCULAR HEMOGLOBIN 23.5 pg (27.0-31.0); MEAN CORPUSCULAR HGB CONC 28.4 g/dL (32.0-36.0); MEAN CORPUSCULAR VOLUME 82.7 fL (81.0-99.0); MEAN PLATELET VOLUME 9.9 fL (7.9-10.8); MONOCYTES # (AUTO) 0.5 10^3/uL (0.0-1.0); MONOCYTES % (AUTO) 10.5 %; NEUTROPHILS # (AUTO) 2.6 10^3/uL (1.5-6.6); NEUTROPHILS % (AUTO) 60.1 %; PLT - PLATELET COUNT 163 10^3/uL (130-450); RED BLOOD COUNT 3.75 10^6/uL (4.20-5.40); RED CELL DISTRIBUTION WIDTH 18.9 % (12.0-15.0); WHITE BLOOD COUNT 4.4 x10^3/uL (4.8-10.8)
[2021-07-03 11:08] LABS: ALBUMIN 3.4 g/dL (3.2-5.5); ALBUMIN/GLOBULIN RATIO 1.2 (1.0-2.2); BILIRUBIN,TOTAL 0.6 mg/dL (0.2-1.0); CALCIUM 10.2 mg/dL (8.5-10.3); CREATININE 0.8 mg/dL (0.4-1.0); POTASSIUM 4.5 mmol/L (3.5-5.0); TOTAL PROTEIN 6.3 g/dL (6.7-8.2)
[2021-07-03 11:16] LABS: PLATELET ESTIMATE, MANUAL NORMAL (130-450,000) (NORMAL); PLATELET MORPHOLOGY NORMAL APPEARANCE (NORMAL)
== END 2021-07-03 10:46 | disposition home or self-care (01) ==
LOC: LAB.R 10:45
PROVIDERS: ATTEND Family Medicine
DX: E11.9 Type 2 diabetes mellitus without complications (principal); E87.6 Hypokalemia; I95.9 Hypotension, unspecified; I10 Essential (primary) hypertension; E63.9 Nutritional deficiency, unspecified
CPT/HCPCS: 80053; 85025

== ENCOUNTER 2021-07-23 09:21 | Outpatient (CLI) | payer MEDICARE, OTHER, MEDICAID ==
[2021-07-23 09:50] LABS: EOSINOPHILS # (AUTO) 0.2 10^3/uL (0.0-0.7); EOSINOPHILS % (AUTO) 5.1 %; HCT - HEMATOCRIT 36.4 % (37.0-47.0); HGB - HEMOGLOBIN 10.7 g/dL (12.0-16.0); LYMPHOCYTES # (AUTO) 1.2 10^3/uL (1.5-3.5); LYMPHOCYTES % (AUTO) 29.9 %; MEAN CORPUSCULAR HGB CONC 29.4 g/dL (32.0-36.0); MEAN CORPUSCULAR VOLUME 88.6 fL (81.0-99.0); MEAN PLATELET VOLUME 10.1 fL (7.9-10.8); MONOCYTES # (AUTO) 0.4 10^3/uL (0.0-1.0); MONOCYTES % (AUTO) 10.4 %; NEUTROPHILS # (AUTO) 2.1 10^3/uL (1.5-6.6); NEUTROPHILS % (AUTO) 53.3 %; PLT - PLATELET COUNT 166 10^3/uL (130-450); RED BLOOD COUNT 4.11 10^6/uL (4.20-5.40); RED CELL DISTRIBUTION WIDTH 23.5 % (12.0-15.0); WHITE BLOOD COUNT 3.9 x10^3/uL (4.8-10.8)
[2021-07-23 10:14] LABS: THYROID STIMULATING HORMONE 2.89 uIU/mL (0.34-5.60)
[2021-07-23 10:16] LABS: FREE T4 (FREE THYROXINE) 0.97 ng/dL (0.58-1.64)
[2021-07-23 10:20] LABS: SLIDE REVIEW? Indicated
[2021-07-23 10:21] LABS: RBC MORPHOLOGY (MULTIPLE) 4+ ANISOCYTOSIS (NORMAL)
[2021-07-23 14:06] LABS: ALBUMIN 3.7 g/dL (3.2-5.5); ALBUMIN/GLOBULIN RATIO 1.3 (1.0-2.2); ALKALINE PHOSPHATASE 116 IU/L (42-121); ALT ALANINE AMINOTRANSFERASE 11 IU/L (10-60); AST ASPARTATE AMINOTRANSFERASE 15 IU/L (10-42); BILIRUBIN,TOTAL 0.8 mg/dL (0.2-1.0); BUN - BLOOD UREA NITROGEN 16 mg/dL (6-20); CALCIUM 10.8 mg/dL (8.5-10.3); CARBON DIOXIDE - CO2 28 mmol/L (21-32); CHLORIDE 103 mmol/L (101-111); CHOL/HDL RATIO 2.5 (<4.4); CHOLESTEROL 109 mg/dL; CREATININE 0.9 mg/dL (0.4-1.0); GFR - MDRD 61 (>89); GLUCOSE 118 mg/dL (70-100); HDL CHOLESTEROL 44 mg/dL; LDL CHOLESTEROL,CALCULATED 50 mg/dL; LDL/HDL RATIO 1.1 (<4.4); POTASSIUM 4.1 mmol/L (3.5-5.0); SODIUM 138 mmol/L (135-145); TOTAL PROTEIN 6.5 g/dL (6.7-8.2); TRIGLYCERIDES 75 mg/dL; VLDL CHOLESTEROL 15 mg/dL
[2021-07-23 19:45] LABS: ESTIMATED AVERAGE GLUCOSE 154 mg/dL (70-100)
== END 2021-07-23 09:22 | disposition home or self-care (01) ==
LOC: LAB.R 09:21
PROVIDERS: ATTEND Family Medicine
DX: E11.9 Type 2 diabetes mellitus without complications (principal); I48.91 Unspecified atrial fibrillation; E03.9 Hypothyroidism, unspecified
CPT/HCPCS: 80053; 80061; 83036; 83721; 84439; 84443; 85025

== ENCOUNTER 2021-08-19 14:08 | Outpatient (CLI) | payer MEDICARE, MEDICAID | END 2021-08-19 14:09 | disposition critical access hospital (66) | LOC: EMS 14:08 | DX: S00.31XA Abrasion of nose, initial encounter (principal); S00.81XA Abrasion of other part of head, initial encounter; W18.39XA Other fall on same level, initial encounter; Y93.89 Activity, other specified; Y92.193 Bedroom in other specified residential institution as the place of occurrence of the external cause | CPT/HCPCS: A0425; A0429 ==

== ENCOUNTER 2021-08-19 14:16 | Emergency (ER) | payer MEDICARE, OTHER, MEDICAID ==
[2021-08-19] MEDS ORDERED: ACETAMINOPHEN 325 MG TABLET PO STA (14:23)
--- NOTE | 2021-08-19 14:25 | ED Physician Documentation ---
PD HPI Fall - Stated complaint Stated Complaint: FALL - History obtained from History obtained from: Patient - History of Present Illness Mechanism of injury: Lost balance (she states fell forward from seated in wheelchair, striking face/head and right knee.) Fall distance: Sitting position Where injury occurred: Other ([facility]) Timing - onset: Today Injury(ies) location: Head (forehead), Face, Right Lower Extremity (anterior knee). No: Chest, Abdomen Quality of pain: Aching Associated symptoms: No: LOC, AMS Worsens with: Palpation Contributing factors: Anticoagulated. No: Intoxicated Similar symptoms before: Has not had sx before Review of Systems Constitutional: denies: Fever Nose: denies: Rhinorrhea / runny nose, Congestion Throat: denies: Sore throat Cardiac: denies: Chest pain / pressure Respiratory: denies: Cough GI: denies: Abdominal Pain Neurologic: denies: Focal weakness, Numbness, Altered mental status, Headache (pain frontal/forehead area without general headache.) PD PAST MEDICAL HISTORY - Past Medical History Cardiovascular: Atrial fibrillation Respiratory: None Neuro: Dementia, CVA Endocrine/Autoimmune: Type 1 diabetes, HyPOthyroidism GI: None TELETYPE MECHANIC: None : Incontinence, Chronic bladder infection HEENT: Chronic vision loss Psych: None Musculoskeletal: Osteoarthritis Derm: None - Past Surgical History Past Surgical History: Yes General: Appendectomy /TELETYPE MECHANIC: Hysterectomy, Breast implants HEENT: Cataracts - Present Medications Home Medications: Ambulatory Orders Medication Instructions Recorded Confirmed Levothyroxine Sodium [Synthroid] 88 mcg PO DAILY 01/19/13 08/19/21 Docusate Sodium [Dss] 250 mg PO BID PRN 03/09/14 08/19/21 Latanoprost 0.005% Ophth Drops 1 drop LEFTEYE QPM 06/20/14 08/19/21 [Xalatan Ophth Drops] Hydrocodone/Acetaminophen [[place] 1 - 2 tab PO Q6H PRN MDD PAIN 02/02/16 08/19/21 5-325 Tablet] Potassium Chloride 20 meq PO TIDWM 02/02/16 08/19/21 Saccharomyces Boulardii [Florastor] 250 mg PO DAILY 03/20/16 08/19/21 Insulin Glargine,Hum.rec.anlog 12 unit SQ BID 04/09/16 02/22/21 [Lantus] Insulin Lispro [Humalog] 7 unit SUBQ AC 04/09/16 08/19/21 Ciprofloxacin HCl [Cipro] 500 mg PO 02/22/21 Insulin NPH Human [NovoLIN N] 35 unit SQ DAILY 02/22/21 08/19/21 Rivaroxaban [Xarelto] 15 mg PO DAILY 02/22/21 08/19/21 Bisacodyl Supp [Dulcolax Supp] 1 tab GA PRN PRN 08/19/21 08/19/21 Ferrous Gluconate 1 tab PO DAILY 08/19/21 08/19/21 Oxybutynin [Ditropan] 1 tab PO DAILY 08/19/21 08/19/21 - Allergies Allergies/Adverse Reactions: Allergies Allergy/AdvReac Type Severity Reaction Status Date / Time codeine Allergy Unknown Hallucinati Verified 08/19/21 14:29 ons mites,pollen,horse, cat, Allergy Severe Respiratory Uncoded 08/19/21 14:29 feathers - Social History Does the pt smoke?: No Smoking Status: Never smoker Does the pt drink ETOH?: No Does the pt have substance abuse?: No - Immunizations Immunizations are current?: Yes - POLST Patient has POLST: Yes POLST Status: DNR PD ED PE NORMAL - Vitals Vital signs reviewed: Yes - General General: Alert and oriented X 3, No acute distress, Well developed/nourished - HEENT HEENT: PERRL, EOMI, Pharynx benign, Other (bruising forehead and upper part of nasal bridge.) - Neck Neck: Supple, no meningeal sign, No adenopathy, Other (some tenderness lower neck without deformity.) - Respiratory Respiratory: No respiratory distress, Clear bilaterally, Other (no chestwall tenderness) - Abdomen Abdomen: Soft, Non tender - Derm Derm: Normal color, Warm and dry - Extremities Extremities: Other (right knee anterior with some tenderness and mild swelling. Able to extend at knee. ) - Neuro Neuro: Alert and oriented X 3, No motor deficit Eye Opening: Spontaneous Motor: Obeys Commands Verbal: Oriented GCS Score: 15 Results - Vitals Vitals: Vital Signs - 24 hr 08/19/21 14:17 Temperature 36.3 C L Heart Rate 53 L Respiratory 18 Rate Blood Pressure 153/78 H O2 Saturation 97 Oxygen O2 Source Room air - Labs Labs: Laboratory Tests 08/19/21 08/19/21 08/19/21 14:31 14:31 14:31 WBC 5.1 RBC 4.37 Hgb 11.7 L Hct 39.5 MCV 90.4 MCH 26.8 L MCHC 29.6 L RDW 19.0 H Plt Count 132 MPV 9.6 Neut # (Auto) 3.5 Lymph # (Auto) 1.0 L [place] # (Auto) 0.4 Eos # (Auto) 0.2 Baso # (Auto) 0.0 Absolute Nucleated RBC 0.00 Nucleated RBC % 0.0 PT 14.8 H INR 1.3 H APTT 34.2 H Sodium 137 Potassium 4.4 Chloride 99 L Carbon Dioxide 30 Anion Gap 8.0 BUN 16 Creatinine 0.7 Estimated GFR (MDRD) 81 L Glucose 250 H Calcium 10.5 H Total Bilirubin 0.7 AST 15 ALT 13 Alkaline Phosphatase 120 Total Protein 6.6 L Albumin 3.4 Globulin 3.2 Albumin/Globulin Ratio 1.1 Lipase 14 L - Rads (name of study) head and neck CT Radiology: Prelim report reviewed (no acute process), See rad report right knee Radiology: Prelim report reviewed (no fractures), See rad report PD MEDICAL DECISION MAKING - ED course Complexity details: reviewed results, considered differential, d/w patient Departure - Departure Disposition: 01 Home, Self Care Clinical Impression: Accidental fall Qualifiers: Encounter type: initial encounter Qualified Code(s): W19.XXXA - Unspecified fall, initial encounter Facial contusion Qualifiers: Encounter type: initial encounter Qualified Code(s): S00.83XA - Contusion of other part of head, initial encounter Knee contusion Qualifiers: Encounter type: initial encounter Laterality: right Qualified Code(s): S80.01XA - Contusion of right knee, initial encounter Condition: Stable Record reviewed to determine appropriate education?: Yes Comments: Your knee x-ray does not show any fractures. Presume just bruised. Your head and neck CT scans did not show any fractures nor any bleeding inside. The facial bruising should resolve slowly over time. Continue usual medications. Tylenol if needed for pains. Discharge Date/Time: 08/19/21 16:25
[2021-08-19 14:29] VITALS: BP 153/78
[2021-08-19 14:37] LABS: BASOPHILS % (AUTO) 0.8 %; EOSINOPHILS # (AUTO) 0.2 10^3/uL (0.0-0.7); EOSINOPHILS % (AUTO) 3.9 %; HCT - HEMATOCRIT 39.5 % (37.0-47.0); HGB - HEMOGLOBIN 11.7 g/dL (12.0-16.0); LYMPHOCYTES % (AUTO) 18.6 %; MEAN CORPUSCULAR HEMOGLOBIN 26.8 pg (27.0-31.0); MEAN CORPUSCULAR HGB CONC 29.6 g/dL (32.0-36.0); MEAN CORPUSCULAR VOLUME 90.4 fL (81.0-99.0); MEAN PLATELET VOLUME 9.6 fL (7.9-10.8); MONOCYTES # (AUTO) 0.4 10^3/uL (0.0-1.0); MONOCYTES % (AUTO) 8.2 %; NEUTROPHILS # (AUTO) 3.5 10^3/uL (1.5-6.6); NEUTROPHILS % (AUTO) 68.3 %; PLT - PLATELET COUNT 132 10^3/uL (130-450); RED BLOOD COUNT 4.37 10^6/uL (4.20-5.40); WHITE BLOOD COUNT 5.1 x10^3/uL (4.8-10.8)
[2021-08-19 14:53] LABS: ALBUMIN 3.4 g/dL (3.2-5.5); ALBUMIN/GLOBULIN RATIO 1.1 (1.0-2.2); BILIRUBIN,TOTAL 0.7 mg/dL (0.2-1.0); CALCIUM 10.5 mg/dL (8.5-10.3); CREATININE 0.7 mg/dL (0.4-1.0); POTASSIUM 4.4 mmol/L (3.5-5.0); TOTAL PROTEIN 6.6 g/dL (6.7-8.2)
[2021-08-19 14:54] LABS: INR 1.3 (0.8-1.2); PT - PROTHROMBIN TIME 14.8 secs (9.9-12.6)
--- NOTE | 2021-08-19 14:58 | CT Report ---
PROCEDURE: CERVICAL SPINE WO INDICATIONS: fall from chair, struck face. TECHNIQUE: Noncontrast 3 mm thick sections acquired from the skull base to the T4 level. Sagittal and coronal r eformats were then constructed. For radiation dose reduction, the following was used: automated exp osure control, adjustment of mA and/or kV according to patient size. COMPARISON: None. FINDINGS: Image quality: Excellent. Bones: No fracture or dislocation. Visualized superior ribs are intact. Soft tissues: Prevertebral soft tissues are normal in thickness. No paravertebral hematomas. No ap ical pneumothoraces. IMPRESSION: No CT evidence of acute traumatic cervical spine injury. Reviewed by: Larry Mills MD on 08/19/2021 1:57 PM [place] Approved by: Larry Mills MD on 08/19/2021 1:57 PM [facility] Station ID: [id number]
[2021-08-19 15:01] LABS: PARTIAL THROMBOPLASTIN TIME 34.2 secs (24.9-33.3)
--- NOTE | 2021-08-19 15:01 | CT Report ---
PROCEDURE: HEAD WO INDICATIONS: fall, struck face, on Xarelto TECHNIQUE: Noncontrast 4.5 mm thick angled axial sections acquired from the foramen magnum to the vertex. For r adiation dose reduction, the following was used: automated exposure control, adjustment of mA and/or kV according to patient size. COMPARISON: 02/23/2021. Correlation is also made with the accompanying cervical spine CT, 08/19/2021. Correlation is also made with prior brain MRI, 09/07/2017. FINDINGS: Image quality: Excellent. CSF spaces: Basal cisterns are patent. No extra-axial fluid collections. Ventricles are normal in size and shape. Brain: No midline shift. No intracranial masses or hemorrhage. Calcification is seen along the post erior falx, which is stable compared to 02/23/2021. Garcia-white matter interface is normal. Normal bila teral cerebral infarctions are again seen. Skull and face: There is a mild right forehead soft tissue hematoma seen. No underlying calvarial fra cture is seen. Calvarium and visualized facial bones are intact, without suspicious lesions. Sinuses: Visualized sinuses and mastoids are clear. IMPRESSION: Mild right forehead soft tissue hematoma, without an associated regional fracture seen. No intracranial hemorrhage is seen. Remote cerebral infarctions are seen. Age-appropriate brain parenchymal volume loss and chronic small vessel ischemic change can be seen. Reviewed by: Radames Franco MD on 08/19/2021 2:00 PM [place] Approved by: Radames Franco MD on 08/19/2021 2:00 PM [facility] Station ID: [id number]
--- NOTE | 2021-08-19 15:16 | XRAY Report ---
PROCEDURE: Knee 2 View RT INDICATIONS: fall onto right knee, some pain TECHNIQUE: 3 views of the none knee(s) were acquired. COMPARISON: None. FINDINGS: Bones: No fractures or dislocations. No suspicious bony lesions. Soft tissues: Mild joint effusion. No suspicious soft tissue calcifications. IMPRESSION: Mild effusion. No visualized acute fracture or dislocation. However, occult injury canno t be excluded. Recommend short interval imaging follow-up in 7-10 days as clinically indicated for ad ditional evaluation. Reviewed by: Gerri Henry MD on 08/19/2021 3:15 PM PST Approved by: Gerri Henry MD on 08/19/2021 3:15 PM PST Station ID: [id number]
== END 2021-08-19 16:25 | disposition home or self-care (01) ==
LOC: EDUNIT# → ED 14:16
DX: S00.83XA Contusion of other part of head, initial encounter (principal); S00.33XA Contusion of nose, initial encounter; S80.01XA Contusion of right knee, initial encounter; W05.0XXA Fall from non-moving wheelchair, initial encounter; Y92.122 Bedroom in nursing home as the place of occurrence of the external cause; F03.90 Unspecified dementia, unspecified severity, without behavioral disturbance, psychotic disturbance, mood disturbance, and anxiety; E10.9 Type 1 diabetes mellitus without complications; Z79.4 Long term (current) use of insulin; I48.91 Unspecified atrial fibrillation; Z79.01 Long term (current) use of anticoagulants; Z86.73 Personal history of transient ischemic attack (TIA), and cerebral infarction without residual deficits; Z66 Do not resuscitate
CPT/HCPCS: 36415; 70450; 72125; 73560; 80053; 83690; 85025; 85610; 85730; 99283; 99284; A9270

== ENCOUNTER 2021-08-27 08:00 | Outpatient (CLI) | payer MEDICARE, MEDICAID ==
[2021-08-27 16:55] LABS: BILIRUBIN,URINE NEGATIVE (NEGATIVE); GLUCOSE, URINE (UA) NEGATIVE (NEGATIVE); KETONES,URINE (UA) NEGATIVE (NEGATIVE); LEUKOCYTE ESTERASE, URINE NEGATIVE (NEGATIVE); NITRITE,URINE NEGATIVE (NEGATIVE); OCCULT BLOOD,URINE LARGE (NEGATIVE); PROTEIN,URINE TRACE mg/dL (NEGATIVE); UROBILINOGEN,URINE 0.2 (NORMAL) E.U./dL (NORMAL)
[2021-08-27 16:59] LABS: CLARITY,URINE HAZY (CLEAR)
[2021-08-27 17:07] LABS: BACTERIA,URINE Rare /HPF (None Seen); EPITHELIAL CELLS,UR MOD Transitional /HPF (<= Few); RBC,URINE TNTC /HPF (0-5); SQUAMOUS EPITHELIAL CELL,UR RARE Squamous (<= Few); WBC,URINE 0-3 /HPF (0-5)
== END 2021-08-27 23:59 ==
LOC: LAB.R 08:00
PROVIDERS: ATTEND Family Medicine
DX: N39.0 Urinary tract infection, site not specified (principal)
CPT/HCPCS: 81001; 87086

== ENCOUNTER 2021-08-27 08:39 | Outpatient (CLI) | payer MEDICARE, MEDICAID ==
[2021-08-27 08:54] LABS: BASOPHILS % (AUTO) 0.4 %; EOSINOPHILS # (AUTO) 0.1 10^3/uL (0.0-0.7); HCT - HEMATOCRIT 43.7 % (37.0-47.0); HGB - HEMOGLOBIN 13.4 g/dL (12.0-16.0); LYMPHOCYTES # (AUTO) 0.6 10^3/uL (1.5-3.5); LYMPHOCYTES % (AUTO) 5.4 %; MEAN CORPUSCULAR HEMOGLOBIN 27.5 pg (27.0-31.0); MEAN CORPUSCULAR HGB CONC 30.7 g/dL (32.0-36.0); MEAN CORPUSCULAR VOLUME 89.7 fL (81.0-99.0); MONOCYTES # (AUTO) 0.6 10^3/uL (0.0-1.0); MONOCYTES % (AUTO) 5.7 %; NEUTROPHILS % (AUTO) 87.2 %; PLT - PLATELET COUNT 152 10^3/uL (130-450); RED BLOOD COUNT 4.87 10^6/uL (4.20-5.40); RED CELL DISTRIBUTION WIDTH 18.5 % (12.0-15.0); WHITE BLOOD COUNT 10.3 x10^3/uL (4.8-10.8)
[2021-08-27 09:11] LABS: ALBUMIN 3.9 g/dL (3.2-5.5); ALBUMIN/GLOBULIN RATIO 1.1 (1.0-2.2); BILIRUBIN,TOTAL 1.1 mg/dL (0.2-1.0); CALCIUM 10.6 mg/dL (8.5-10.3); CREATININE 0.9 mg/dL (0.4-1.0); POTASSIUM 4.2 mmol/L (3.5-5.0); TOTAL PROTEIN 7.5 g/dL (6.7-8.2)
== END 2021-08-27 08:40 | disposition home or self-care (01) ==
LOC: LAB.R 08:39
PROVIDERS: ATTEND Family Medicine
DX: A41.9 Sepsis, unspecified organism (principal)
CPT/HCPCS: 80053; 83880; 85025

== ENCOUNTER 2021-08-27 16:03 | Outpatient (CLI) | payer MEDICARE, MEDICAID ==
--- NOTE | 2021-08-27 16:33 | XRAY Report ---
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 COMPARISON: None. FINDINGS: Surgical changes and devices: None. Lungs and pleura: Probable right pleural effusion. Overlying atelectasis and consolidation. Increased interstitial markings in both lungs. Mediastinum: Mediastinal contours are normal. Heart size is normal. Bones and chest wall: No suspicious bony abnormalities. Soft tissues appear unremarkable. IMPRESSION: Right basilar airspace consolidation with adjacent pleural effusion. Increased initial markings in both lungs. Findings may represent pulmonary edema or infection. An element of atelectasis in the right lung base may be present also. Consider CT chest for further evaluation. Reviewed by: Larry Mills MD on 08/27/2021 4:32 PM PST Approved by: Larry Mills MD on 08/27/2021 4:[address] [facility] Station ID: [id number]
== END 2021-08-27 16:04 | disposition home or self-care (01) ==
LOC: DI 16:03
PROVIDERS: ATTEND Family Medicine
DX: I50.40 Unspecified combined systolic (congestive) and diastolic (congestive) heart failure (principal); J90 Pleural effusion, not elsewhere classified; R91.8 Other nonspecific abnormal finding of lung field; N39.0 Urinary tract infection, site not specified; A41.9 Sepsis, unspecified organism
CPT/HCPCS: 80053; 81001; 83880; 85025; 87086

== ENCOUNTER 2021-08-28 12:51 | Outpatient (CLI) | payer MEDICARE, MEDICAID ==
[2021-08-28 13:09] LABS: BASOPHILS % (AUTO) 0.3 %; EOSINOPHILS % (AUTO) 0.1 %; HGB - HEMOGLOBIN 11.7 g/dL (12.0-16.0); LYMPHOCYTES # (AUTO) 0.8 10^3/uL (1.5-3.5); LYMPHOCYTES % (AUTO) 10.9 %; MEAN CORPUSCULAR HEMOGLOBIN 27.1 pg (27.0-31.0); MEAN CORPUSCULAR HGB CONC 30.8 g/dL (32.0-36.0); MEAN CORPUSCULAR VOLUME 88.2 fL (81.0-99.0); MEAN PLATELET VOLUME 9.5 fL (7.9-10.8); MONOCYTES # (AUTO) 0.8 10^3/uL (0.0-1.0); MONOCYTES % (AUTO) 10.6 %; NEUTROPHILS # (AUTO) 5.6 10^3/uL (1.5-6.6); NEUTROPHILS % (AUTO) 77.8 %; PLT - PLATELET COUNT 120 10^3/uL (130-450); RED BLOOD COUNT 4.31 10^6/uL (4.20-5.40); RED CELL DISTRIBUTION WIDTH 18.1 % (12.0-15.0); WHITE BLOOD COUNT 7.2 x10^3/uL (4.8-10.8)
[2021-08-28 13:16] LABS: ALBUMIN 3.2 g/dL (3.2-5.5); ALBUMIN/GLOBULIN RATIO 1.1 (1.0-2.2); BILIRUBIN,TOTAL 0.5 mg/dL (0.2-1.0); CALCIUM 9.7 mg/dL (8.5-10.3); CREATININE 0.8 mg/dL (0.4-1.0); POTASSIUM 3.7 mmol/L (3.5-5.0)
== END 2021-08-28 12:52 | disposition home or self-care (01) ==
LOC: LAB.R 12:51
DX: E87.6 Hypokalemia (principal); E63.9 Nutritional deficiency, unspecified; E78.1 Pure hyperglyceridemia; D50.9 Iron deficiency anemia, unspecified; R53.1 Weakness
CPT/HCPCS: 80053; 85025

== ENCOUNTER 2021-08-28 14:31 | Outpatient (CLI) | payer MEDICARE, OTHER, MEDICAID | END 2021-08-28 14:32 | disposition critical access hospital (66) | LOC: EMS 14:31 | DX: R53.83 Other fatigue (principal); R31.0 Gross hematuria; R41.82 Altered mental status, unspecified ==

== ENCOUNTER 2021-08-28 14:36 | Emergency (ER) | payer MEDICARE, OTHER, MEDICAID ==
--- NOTE | 2021-08-28 15:33 | ED Physician Documentation ---
History of Present Illness - Stated complaint Stated Complaint: BLOOD IN URINE - Chief complaint Chief Complaint: Neuro - History obtained from History obtained from: Patient, Family, EMS - History of Present Illness Timing: How many days ago (2-3) Pain level max: 0 Pain level now: 0 - Additonal information Additional information: Patient is a 75-year-old female brought in by EMS as from [facility] today. She had a chest x-ray yesterday that demonstrates pneumonia. Was started on Rocephin. There was noted to be some blood in the urine today on urinalysis. She was placed on oxygen as she does require oxygen from time to time whenever she develops pneumonia. She apparently is more tired than usual today. The patient states that she feels tired and wants to sleep. Her blood work from today at 12:53 PM reveals a normal white blood cell count. Hemoglobin is 11.7. Her sodium is mildly low at 131 blood sugar was 260. Creatinine was normal. CXR - 08/27/21 IMPRESSION: Right basilar airspace consolidation with adjacent pleural effusion. Increased initial markings in both lungs. Findings may represent pulmonary edema or infection. An element of atelectasis in the right lung base may be present also. Consider CT chest for further evaluation. Review of Systems Ten Systems: 10 systems reviewed and negative Constitutional: reports: Fever (Tmax 99) Ears: denies: Ear pain Nose: denies: Rhinorrhea / runny nose, Congestion Throat: denies: Sore throat Cardiac: denies: Chest pain / pressure Respiratory: reports: Cough GI: denies: Abdominal Pain, Nausea, Vomiting, Diarrhea : denies: Dysuria, Frequency, Hesitancy Skin: denies: Rash Musculoskeletal: denies: Neck pain, Back pain Neurologic: denies: Headache PD PAST MEDICAL HISTORY - Past Medical History Cardiovascular: Atrial fibrillation Respiratory: None Neuro: Dementia, CVA Endocrine/Autoimmune: Type 1 diabetes, HyPOthyroidism GI: None 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 : Incontinence, Chronic bladder infection HEENT: Chronic vision loss Psych: None Musculoskeletal: Osteoarthritis Derm: None - Past Surgical History Past Surgical History: Yes General: Appendectomy /KELP CUTTER: Hysterectomy, Breast implants HEENT: Cataracts - Present Medications Home Medications: Ambulatory Orders Medication Instructions Recorded Confirmed Levothyroxine Sodium [Synthroid] 88 mcg PO DAILY 01/19/13 08/19/21 Docusate Sodium [Dss] 250 mg PO BID PRN 03/09/14 08/19/21 Latanoprost 0.005% Ophth Drops 1 drop LEFTEYE QPM 06/20/14 08/19/21 [Xalatan Ophth Drops] Hydrocodone/Acetaminophen [[place] 1 - 2 tab PO Q6H PRN MDD PAIN 02/02/16 08/19/21 5-325 Tablet] Potassium Chloride 20 meq PO TIDWM 02/02/16 08/19/21 Saccharomyces Boulardii [Florastor] 250 mg PO DAILY 03/20/16 08/19/21 Insulin Glargine,Hum.rec.anlog 12 unit SQ BID 04/09/16 02/22/21 [Lantus] Insulin Lispro [Humalog] 7 unit SUBQ AC 04/09/16 08/19/21 Ciprofloxacin HCl [Cipro] 500 mg PO 02/22/21 Insulin NPH Human [NovoLIN N] 35 unit SQ DAILY 02/22/21 08/19/21 Rivaroxaban [Xarelto] 15 mg PO DAILY 02/22/21 08/19/21 Bisacodyl Supp [Dulcolax Supp] 1 tab UT PRN PRN 08/19/21 08/19/21 Ferrous Gluconate 1 tab PO DAILY 08/19/21 08/19/21 Oxybutynin [Ditropan] 1 tab PO DAILY 08/19/21 08/19/21 Azithromycin [Zithromax] 0 mg PO DAILY #6 tablet 08/28/21 Cefdinir 300 mg PO BID #20 cap 08/28/21 - Allergies Allergies/Adverse Reactions: Allergies Allergy/AdvReac Type Severity Reaction Status Date / Time codeine Allergy Unknown Hallucinati Verified 08/28/21 15:21 ons mites,pollen,horse, cat, Allergy Severe Respiratory Uncoded 08/19/21 14:29 feathers - Social History Does the pt smoke?: No Smoking Status: Never smoker Does the pt drink ETOH?: No Does the pt have substance abuse?: No - Immunizations Immunizations are current?: Yes - POLST Patient has POLST: Yes POLST Status: DNR PD ED PE NORMAL - Vitals Vital signs reviewed: Yes - General General: No acute distress, Other (alert, oriented to person and place.) - HEENT HEENT: PERRL, EOMI, Moist mucous membranes, Other (bruising to the R side of the face from a fall last week. ) - Neck Neck: Supple, no meningeal sign, No bony TTP - Cardiac Cardiac: RRR, Strong equal pulses - Respiratory Respiratory: No respiratory distress, Other (rhonchi B lung bases) - Abdomen Abdomen: Soft, Non tender, Non distended - Derm Derm: Warm and dry - Extremities Extremities: No edema, No calf tenderness / cord - Neuro Neuro: Other (alert, oriented to person and place.) Results - Vitals Vitals: Vital Signs - 24 hr 08/28/21 08/28/21 15:21 15:35 Temperature 36.9 C 36.9 C Heart Rate 64 67 Respiratory 20 20 Rate Blood Pressure 135/111 H 180/95 H O2 Saturation 98 97 Oxygen O2 Source Nasal cannula Oxygen Flow Rate 2 - Rads (name of study) head Ct Radiology: Final report received, EMP read contemporaneously, See rad report PD MEDICAL DECISION MAKING - ED course Complexity details: reviewed old records, reviewed results, re-evaluated patient, considered differential, d/w family ED course: 75-year-old female with right lower lobe pneumonia. We will place her on a cephalosporin and azithromycin for home. She is well-appearing, nontoxic. Afebrile. Stable on supplemental oxygen. She will be returned to the correction facility for continued care. was counseled regarding the plan as well. This document was made in part using voice recognition software. While efforts are made to proofread this document, sound alike and grammatical errors may occur. Departure - Departure Disposition: 01 Home, Self Care Clinical Impression: Pneumonia Qualifiers: Pneumonia type: due to unspecified organism Laterality: right Lung location: lower lobe of lung Qualified Code(s): J18.9 - Pneumonia, unspecified organism Condition: Good Instructions: ED Pneumonia Adult Follow-Up: your,doctor in 3 days [Other] Prescriptions: Cefdinir 300 mg PO BID #20 cap Azithromycin [Zithromax] 0 mg PO DAILY #6 tablet Comments: The prescriptions were sent to the [facility] pharmacy. Please take all antibiotics until gone. She may require supplemental oxygen as the pneumonia clears. Return if she worsens. Discharge Date/Time: 08/28/21 17:45
[2021-08-28 15:36] VITALS: BP 180/95
--- NOTE | 2021-08-28 16:53 | CT Report ---
PROCEDURE: HEAD WO INDICATIONS: fall last week, pt on xarelto TECHNIQUE: Noncontrast 4.5 mm thick angled axial sections acquired from the foramen magnum to the vertex. For r adiation dose reduction, the following was used: automated exposure control, adjustment of mA and/or kV according to patient size. COMPARISON: 08/19/2021. FINDINGS: Image quality: Excellent. CSF spaces: There is moderate cerebral volume loss with prominence of the ventricles and sulci. Basa l cisterns are patent. No extra-axial fluid collections. Brain: No intracranial hemorrhage, mass, or mass effect. There is a small region of encephalomalacia in the left frontal lobe consistent with sequelae of a prior infarct redemonstrated. There are subco rtical and periventricular white matter hypodensities consistent with moderate chronic small vessel i schemic changes. Skull and face: Calvarium and visualized facial bones are intact, without suspicious lesions. Sinuses: Visualized sinuses and mastoids are clear. IMPRESSION: 1. No acute intracranial abdomen. 2. Moderate chronic white matter small vessel ischemic changes and cerebral volume loss. 3. Small region of encephalomalacia in the the left frontal lobe consistent with sequelae of a prior infarct. Reviewed by: Evan Payne MD on 08/28/2021 3:51 PM [facility] Approved by: Evan Payne MD on 08/28/2021 3:51 PM [facility] Station ID: [id number]
[2021-08-28 18:59] LABS: B. PARAPERTUSSIS- RESP PCR PAN NOT DETECTED; B. PERTUSSIS- RESP PCR PANEL NOT DETECTED; C. PNEUMONIAE- RESP PCR PANEL NOT DETECTED; CORONAVIRUS 229E-RESP PCR NOT DETECTED; CORONAVIRUS HKU1-RESP PCR NOT DETECTED; CORONAVIRUS NL63-RESP PCR NOT DETECTED; CORONAVIRUS OC43-RESP PCR NOT DETECTED; HUMAN METAPNEUMOVIRUS NOT DETECTED; INFLUENZA A- RESP PCR PANEL NOT DETECTED; INFLUENZA B - RESP PCR PANEL NOT DETECTED; M. PNEUMONIAE- RESP PCR PANEL NOT DETECTED; PARAINFLUENZA VIRUS 1 NOT DETECTED; PARAINFLUENZA VIRUS 2 NOT DETECTED; PARAINFLUENZA VIRUS 3 NOT DETECTED; PARAINFLUENZA VIRUS 4 NOT DETECTED; RHINOVIRUS/ENTEROVIRUS NOT DETECTED; RSV- RESP PCR PANEL NOT DETECTED; SARS-CoV-2 -RESP PCR PANEL NOT DETECTED
== END 2021-08-28 17:45 | disposition home or self-care (01) ==
LOC: EDUNIT# → ED 14:36
DX: J18.9 Pneumonia, unspecified organism (principal); I48.91 Unspecified atrial fibrillation; E10.9 Type 1 diabetes mellitus without complications; Z79.4 Long term (current) use of insulin; Z79.01 Long term (current) use of anticoagulants; E87.6 Hypokalemia; E63.9 Nutritional deficiency, unspecified; E78.1 Pure hyperglyceridemia; D50.9 Iron deficiency anemia, unspecified; R53.1 Weakness
CPT/HCPCS: 0202U; 80053; 85025; 99283; 99284

== ENCOUNTER 2021-08-28 18:07 | Outpatient (CLI) | payer MEDICARE, OTHER, MEDICAID | END 2021-08-28 18:08 | disposition home or self-care (01) | LOC: EMS 18:07 | PROVIDERS: ATTEND Emergency Medicine | DX: F03.90 Unspecified dementia, unspecified severity, without behavioral disturbance, psychotic disturbance, mood disturbance, and anxiety (principal); J18.9 Pneumonia, unspecified organism; S09.90XA Unspecified injury of head, initial encounter; R09.02 Hypoxemia; Z74.01 Bed confinement status; R53.83 Other fatigue; R31.0 Gross hematuria; R41.82 Altered mental status, unspecified | CPT/HCPCS: A0425; A0427; A0428 ==

== ENCOUNTER 2021-09-02 19:30 | Outpatient (CLI) | payer MEDICARE, MEDICAID ==
[2021-09-02 23:54] LABS: CALCIUM 10.7 mg/dL (8.5-10.3); CREATININE 0.9 mg/dL (0.4-1.0); POTASSIUM 4.6 mmol/L (3.5-5.0)
== END 2021-09-02 23:59 | disposition home or self-care (01) ==
LOC: LAB 19:30
DX: E87.6 Hypokalemia (principal); E11.9 Type 2 diabetes mellitus without complications
CPT/HCPCS: 36415; 80048

== ENCOUNTER 2022-01-18 08:00 | Outpatient (CLI) | payer OTHER ==
[2022-01-18 17:13] LABS: BASOPHILS # (AUTO) 0.1 10^3/uL (0.0-0.1); EOSINOPHILS # (AUTO) 0.1 10^3/uL (0.0-0.7); EOSINOPHILS % (AUTO) 2.2 %; HCT - HEMATOCRIT 44.7 % (37.0-47.0); HGB - HEMOGLOBIN 14.6 g/dL (12.0-16.0); LYMPHOCYTES % (AUTO) 20.9 %; MEAN CORPUSCULAR HEMOGLOBIN 30.9 pg (27.0-31.0); MEAN CORPUSCULAR HGB CONC 32.7 g/dL (32.0-36.0); MEAN CORPUSCULAR VOLUME 94.7 fL (81.0-99.0); MEAN PLATELET VOLUME 9.4 fL (7.9-10.8); MONOCYTES # (AUTO) 0.4 10^3/uL (0.0-1.0); MONOCYTES % (AUTO) 7.7 %; NEUTROPHILS # (AUTO) 3.3 10^3/uL (1.5-6.6); PLT - PLATELET COUNT 151 10^3/uL (130-450); RED BLOOD COUNT 4.72 10^6/uL (4.20-5.40); RED CELL DISTRIBUTION WIDTH 13.2 % (12.0-15.0); WHITE BLOOD COUNT 4.9 x10^3/uL (4.8-10.8)
[2022-01-18 17:43] LABS: ALBUMIN 3.5 g/dL (3.2-5.5); BILIRUBIN,TOTAL 0.4 mg/dL (0.2-1.0); CALCIUM 10.5 mg/dL (8.5-10.3); CREATININE 0.8 mg/dL (0.4-1.0); POTASSIUM 4.4 mmol/L (3.5-5.0); TOTAL PROTEIN 6.9 g/dL (6.7-8.2)
[2022-01-18 17:54] LABS: THYROID STIMULATING HORMONE 1.43 uIU/mL (0.34-5.60)
[2022-01-18 17:56] LABS: FREE T4 (FREE THYROXINE) 0.81 ng/dL (0.58-1.64)
[2022-01-18 18:00] LABS: FERRITIN 30.9 ng/mL (11.0-306.8)
[2022-01-18 21:53] LABS: ESTIMATED AVERAGE GLUCOSE 160 mg/dL (70-100); HEMOGLOBIN A1c% 7.2 % (4.27-6.07)
== END 2022-01-18 08:01 | disposition home or self-care (01) ==
LOC: LAB.R 08:00
PROVIDERS: ATTEND Hospitalist
DX: I10 Essential (primary) hypertension (principal); D50.9 Iron deficiency anemia, unspecified; E03.9 Hypothyroidism, unspecified; E11.9 Type 2 diabetes mellitus without complications
CPT/HCPCS: 80053; 82728; 83036; 83540; 84439; 84443; 84466; 85025

== ENCOUNTER 2022-04-10 17:05 | Outpatient (CLI) | payer MEDICARE, OTHER, MEDICAID | END 2022-04-10 23:59 | disposition critical access hospital (66) | LOC: EMS 17:05 | DX: S79.911A Unspecified injury of right hip, initial encounter (principal); W05.0XXA Fall from non-moving wheelchair, initial encounter; Y92.129 Unspecified place in nursing home as the place of occurrence of the external cause | CPT/HCPCS: A0425; A0429 ==

== ENCOUNTER 2022-04-10 17:12 | Emergency (ER) | payer MEDICARE, OTHER, MEDICAID ==
[2022-04-10] MEDS ORDERED: HYDROcod/ACETAM 5/325 MG TABLET PO STA (17:37)
--- NOTE | 2022-04-10 17:38 | ED Physician Documentation ---
PD HPI LOWER EXT INJURY - Stated complaint Stated Complaint: FALL - Chief complaint Chief Complaint: Ext Problem - History obtained from History obtained from: Patient, EMS - Additional information Additional information: 76-year-old woman comes from [facility]. She reportedly fell out of bed, patient does not remember it. She complains of ankle pain but there was also a concern about her hip, she states to me that her hip does not hurt. She denies head or neck injury. 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 : Incontinence, Chronic bladder infection HEENT: Chronic vision loss Psych: None Musculoskeletal: Osteoarthritis Derm: None - Past Surgical History Past Surgical History: Yes General: Appendectomy /PARALEGAL INSTRUCTOR: Hysterectomy, Breast implants HEENT: Cataracts - Present Medications Home Medications: Ambulatory Orders Medication Instructions Recorded Confirmed Levothyroxine Sodium [Synthroid] 88 mcg PO DAILY 01/19/13 08/19/21 Docusate Sodium [Dss] 250 mg PO BID PRN 03/09/14 08/19/21 Latanoprost 0.005% Ophth Drops 1 drop LEFTEYE QPM 06/20/14 08/19/21 [Xalatan Ophth Drops] Hydrocodone/Acetaminophen [[place] 1 - 2 tab PO Q6H PRN MDD PAIN 02/02/16 08/19/21 5-325 Tablet] Potassium Chloride 20 meq PO TIDWM 02/02/16 08/19/21 Saccharomyces Boulardii [Florastor] 250 mg PO DAILY 03/20/16 08/19/21 Insulin Glargine,Hum.rec.anlog 12 unit SQ BID 04/09/16 02/22/21 [Lantus] Insulin Lispro [Humalog] 7 unit SUBQ AC 04/09/16 08/19/21 Ciprofloxacin HCl [Cipro] 500 mg PO 02/22/21 Insulin NPH Human [NovoLIN N] 35 unit SQ DAILY 02/22/21 08/19/21 Rivaroxaban [Xarelto] 15 mg PO DAILY 02/22/21 08/19/21 Bisacodyl Supp [Dulcolax Supp] 1 tab MD PRN PRN 08/19/21 08/19/21 Ferrous Gluconate 1 tab PO DAILY 08/19/21 08/19/21 Oxybutynin [Ditropan] 1 tab PO DAILY 08/19/21 08/19/21 Azithromycin [Zithromax] 0 mg PO DAILY #6 tablet 08/28/21 Cefdinir 300 mg PO BID #20 cap 08/28/21 Oxycodone HCl/Acetaminophen 1 - 2 each PO Q6H PRN #30 tablet 04/10/22 [Percocet 5-325 mg Tablet] - Allergies Allergies/Adverse Reactions: Allergies Allergy/AdvReac Type Severity Reaction Status Date / Time codeine Allergy Unknown Hallucinati Verified 08/28/21 15:21 ons mites,pollen,horse, cat, Allergy Severe Respiratory Uncoded 08/19/21 14:29 feathers - Social History Does the pt smoke?: No Smoking Status: Never smoker Does the pt drink ETOH?: No Does the pt have substance abuse?: No - Immunizations Immunizations are current?: Yes - POLST Patient has POLST: Yes POLST Status: DNR PD ED PE NORMAL - Vitals Vital signs reviewed: Yes - General General: Other (Hard of hearing and blind) - HEENT HEENT: PERRL, EOMI - Neck Neck: Supple, no meningeal sign, No bony TTP - Abdomen Abdomen: Non tender - Back Back: No spinal TTP - Derm Derm: Normal color, Warm and dry - Extremities Extremities: Other (She is holding the left hip flexed but its not tender. She is quite tender over the distal fibula on the left. No foot tenderness or knee tenderness.) - Neuro Neuro: Alert and oriented X 3, No motor deficit, No sensory deficit, Normal spee ch Eye Opening: Spontaneous Motor: Obeys Commands Verbal: Oriented GCS Score: 15 Results - Vitals Vitals: Vital Signs - 24 hr 04/10/22 17:34 Temperature 36.5 C Heart Rate 61 Respiratory 16 Rate Blood Pressure 172/84 H O2 Saturation 100 Oxygen O2 Source Room air - Rads (name of study) X-rays of the left hip and ankle were notable for a comminuted displaced oblique fracture through the distal tibial shaft and fibular shaft, no hip fr Radiology: EMP read contemporaneously Procedures - Splint (location) LLE Splint applied by: Physician, Tech Type of splint: Fiberglass, Long leg, Posterior, Stirrup Other: Patient tolerated well, No complications, Neurovascular intact - Reduction Body part reduced: Left, Tib Fib Fracture or dislocation: Fracture dislocation Anesthesia: Dilaudid (1mg IVP) Reduction aftercare: Alignment improved, Splint applied PD MEDICAL DECISION MAKING - ED course ED course: 76-year-old woman presents after a [facility]. She is found to have a left tib-fib fracture. I discussed the case with Dr. Buchanan, orthopedics who reviewed the x-rays and felt that given her underlying functional status which includes her being nonweightbearing for the most part and only transferring with a two-person assist it sounds like, that this will be a nonoperative fracture. It was reduced and she is placed in a three-way splint and given pain medications to follow-up in the clinic. at the bedside and comfortable with the plan. Departure - Departure Disposition: 01 Home, Self Care Clinical Impression: Tibia/fibula fracture Condition: Good Record reviewed to determine appropriate education?: Yes Instructions: ED Fx Lower Ext Follow-Up: Silver Buchanan MD [Provider Admit Priv/Credential] - Prescriptions: Oxycodone HCl/Acetaminophen [Percocet 5-325 mg Tablet] 1 - 2 each PO Q6H PRN #30 tablet PRN Reason: pain Comments: Payal has a tib-fib fracture. I discussed her case by phone with our on-call orthopedist, Dr. Buchanan. She will need to follow-up with him in a week. Usually this would be an operative fracture but given endorses underlying mobility, he felt this would be best treated nonoperatively in a fiberglass splint, and She will need to be seen within the week for a follow-up appointment in the clinic. Call tomorrow for an appointment. Until then she should not use the left leg to transfer on at all. She may use the right leg to transfer on. I sent a prescription for narcotic pain medication to [facility] in [place]. I am prescribing a short course of narcotic pain medication for you. These are potentially dangerous and addictive medications that should be used carefully. These medications may constipate you. Take an obhb-pum-srulugr stool softener (docusate) twice daily with plenty of water while taking these medications. If you go 24 hours without a bowel movement, take cxul-bda-qkejexg miralax, per marisol buitrago instructions. Do not drink or drive while taking these medications. If you received narcotic or sedating medications while in the emergency department, do not drive for 24 hours. Store this medication in a safe, secure place and out of reach of children. It is a violation of federal law to give or sell this medication to another person or to use in a manner other than prescribed. The ED will not refill narcotic prescriptions, including prescriptions lost or stolen. To dispose of unwanted medications: 1. [facility] at [address] [facility] in [place] has a medication drop box. They accept prescription medications (in pill form) Thursday through Thursday 9:00 a.m. to 5:00 p.m. 2. The [facility] [employer] accepts prescription medications (in pill form only) for disposal year round. Call for more information. 3. Contact the [facility] for the next [facility] sponsored prescription drug collection event. , [phone], or [phone]; Note that many narcotic pain relievers also contain Tylenol/acetaminophen. Please ensure that your total dose of acetaminophen from all sources does not exceed 3 g (3000 mg) per day.
--- NOTE | 2022-04-10 18:30 | XRAY Report ---
PROCEDURE: Ankle 3 View LT INDICATIONS: ankle inj TECHNIQUE: 3 views of the ankle were acquired. COMPARISON: None FINDINGS: Bones: Acute comminuted oblique fracture involving distal tibial shaft is seen with anterior and medi al displacement at fracture site. Acute oblique fracture involving distal fibular shaft is also seen with anterior and medial displacement at fracture site. Diffuse osteopenia is seen. No other fracture or dislocation is noted. Osteoarthritic changes are noted throughout midfoot and hindfoot joints. N o suspicious bony lesions. Soft tissues: No tibiotalar joint effusion. Achilles tendon appears normal. IMPRESSION: Acute comminuted, and displaced oblique fracture through distal tibial shaft. Acute disp laced fracture also seen involving distal fibular shaft. No other fracture or dislocation. Diffuse os teopenia. Osteoarthritic changes throughout midfoot and hindfoot joints. Reviewed by: Zack Turner MD on 04/10/2022 6:29 PM PDT Approved by: Zack Turner MD on 04/10/2022 6:29 PM PDT Station ID: [id number]
--- NOTE | 2022-04-10 18:31 | XRAY Report ---
PROCEDURE: Hip w/Pelvis 2-3V LT INDICATIONS: hip inj TECHNIQUE: AP pelvis with lateral view(s) of the left hip(s). COMPARISON: None. FINDINGS: Bones: No fractures or dislocations. Pelvic ring appears intact. Left hip joint osteoarthritic cool ges are seen. No evidence of avascular necrosis of femoral head. No suspicious bony lesions. Soft tissues: The visualized bowel gas pattern is normal. No suspicious soft tissue calcifications. IMPRESSION: No acute left hip fracture or dislocation. Left hip joint osteoarthritis. No evidence of avascular necrosis. Reviewed by: Zack Turner MD on 04/10/2022 6:29 PM PDT Approved by: Zack Turner MD on 04/10/2022 6:29 PM PDT Station ID: [id number]
[2022-04-10] MEDS ORDERED: HYDROmorphone 1 MG/ML CARPUJECT IVP STA (18:46)
[2022-04-10] MEDS ORDERED: oxyCODONE/ACET 5/325 Prepack 4 PO STA (19:11)
[2022-04-10 21:05] VITALS: BP 153/74
== END 2022-04-10 21:00 | disposition home or self-care (01) ==
LOC: EDUNIT# → ED 17:12
DX: S82.252A Displaced comminuted fracture of shaft of left tibia, initial encounter for closed fracture (principal); S82.832A Other fracture of upper and lower end of left fibula, initial encounter for closed fracture; W06.XXXA Fall from bed, initial encounter; Y92.193 Bedroom in other specified residential institution as the place of occurrence of the external cause; Z66 Do not resuscitate
CPT/HCPCS: 27752; 73502; 73610; 99282; 99284; A9270; J1170

== ENCOUNTER 2022-04-10 20:58 | Outpatient (CLI) | payer MEDICARE, OTHER, MEDICAID | END 2022-04-10 20:59 | disposition home or self-care (01) | LOC: EMS 20:58 | PROVIDERS: ATTEND Emergency Medicine | DX: Z74.01 Bed confinement status (principal); S82.202D Unspecified fracture of shaft of left tibia, subsequent encounter for closed fracture with routine healing; S82.402D Unspecified fracture of shaft of left fibula, subsequent encounter for closed fracture with routine healing; W19.XXXD Unspecified fall, subsequent encounter | CPT/HCPCS: A0425; A0428 ==

== ENCOUNTER 2022-04-14 08:00 | Outpatient (CLI) | payer MEDICARE, OTHER, MEDICAID ==
--- NOTE | 2022-04-14 15:10 | XRAY Report ---
PROCEDURE: Ankle 3 View LT INDICATIONS: ANKLE FX TECHNIQUE: 3 views of the ankle were acquired. COMPARISON: Left ankle radiographs 04/10/2022. FINDINGS: Overlying casting material limits evaluation of fine bony detail. Bones: Redemonstrated acute fractures of the distal tibia and fibula diaphyses. As before the tibial fracture is comminuted and oblique with approximately one shaft width medial displacement of the dist al fragments. And as before there is approximately one shaft width medial displacement of the distal fibular fragment. Mild foreshortening of both fractures is present as before. Mild apex posterior ang ulation of the tibial fracture also appears similar. No definite ankle mortise malalignment. Soft tissues: No definite tibiotalar joint effusion. IMPRESSION: Redemonstrated acute displaced fractures of the distal tibia and fibula, not substantially changed. Reviewed by: Valdo Vuong MD on 04/14/2022 3:09 PM PDT Approved by: Valdo Vuong MD on 04/14/2022 3:09 PM PDT Station ID: [id number]
--- NOTE | 2022-04-14 17:09 | XRAY Report ---
INDICATIONS: ANKLE FX POST REDUCTION AND CASTING TECHNIQUE: 3 views of the ankle were acquired. COMPARISON: Left ankle radiographs from earlier today and 04/10/2022. FINDINGS: Overlying casting material limits evaluation of fine bony detail. Bones: Redemonstrated acute fractures of the distal tibia and fibula diaphyses. As before the tibial fracture is comminuted and oblique with approximately one shaft width medial displacement of the dist al fragments. And as before there is approximately one shaft width medial displacement of the distal fibular fragment. Mild foreshortening of both fractures is present as before. Mild apex posterior ang ulation of the tibial fracture also appears similar. No definite ankle mortise malalignment. Soft tissues: No definite tibiotalar joint effusion. IMPRESSION: Redemonstrated acute displaced fractures of the distal tibia and fibula, not substantially changed. Reviewed by: Valdo Vuong MD on 04/14/2022 5:07 PM PDT Approved by: Valdo Vuong MD on 04/14/2022 5:07 PM PDT Station ID: [id number]
== END 2022-04-14 23:59 | disposition home or self-care (01) ==
LOC: DI.WOS 08:00
PROVIDERS: ATTEND Orthopaedic Surgery
DX: S82.832D Other fracture of upper and lower end of left fibula, subsequent encounter for closed fracture with routine healing (principal); S82.302D Unspecified fracture of lower end of left tibia, subsequent encounter for closed fracture with routine healing

== ENCOUNTER 2022-06-10 08:00 | Outpatient (CLI) | payer MEDICARE, OTHER, MEDICAID ==
--- NOTE | 2022-06-10 14:58 | XRAY Report ---
PROCEDURE: Ankle 3 View LT INDICATIONS: ANKLE FX TECHNIQUE: 3 views of the ankle were acquired. COMPARISON: X-ray ankle 04/14/2022 FINDINGS: Bones: There is a comminuted fracture of the distal tibia with displacement and angulation, overall r elatively stable compared to prior exam. Displaced fibular fracture is also present, unchanged in ali gnment. There is mild amount of bridging healing osteophytes identified within portions of the tibial fracture. No clearly identified tibial bridging osteophytes are identified. Ankle mortise is normall y aligned. No suspicious bony lesions. Soft tissues: No tibiotalar joint effusion. Achilles tendon appears normal. IMPRESSION: Mild appearance of bridging osteophytes at the distal tibial fracture. Fibular fracture is unchanged. Reviewed by: Gerri Henry MD on 06/10/2022 2:57 PM PDT Approved by: Gerri Henry MD on 06/10/2022 2:57 PM PDT Station ID: [id number]
== END 2022-06-10 23:59 | disposition home or self-care (01) ==
LOC: DI.WOS 08:00
PROVIDERS: ATTEND Orthopaedic Surgery
DX: S82.302D Unspecified fracture of lower end of left tibia, subsequent encounter for closed fracture with routine healing (principal); S82.832D Other fracture of upper and lower end of left fibula, subsequent encounter for closed fracture with routine healing

== ENCOUNTER 2022-07-22 08:00 | Outpatient (CLI) | payer MEDICARE, OTHER, MEDICAID ==
--- NOTE | 2022-07-22 11:26 | XRAY Report ---
PROCEDURE: Tib/Fib LT INDICATIONS: LEFT TIBIA/FIBULA FRACTURE TECHNIQUE: 2 views of the tibia and fibula were acquired. COMPARISON: Left ankle radiographs 06/10/2022, 04/14/2022. FINDINGS: Bones: Comminuted distal tibia fracture. There is callus formation about the fracture. There is incom plete osseous union. There is one shaft width of displacement. Distal fibula fracture. There is one s haft width of displacement. There is minimal callus formation at this fracture. No suspicious bony le sions. Mild degenerative changes at the knee joint. Soft tissues: No suspicious soft tissue calcifications or masses. IMPRESSION: Distal tibia and fibula fractures are not significantly changed. Callus formation at the distal tibia l shaft fracture. Reviewed by: Matthew Johnson MD on 07/22/2022 10:24 AM STEPHANIE Approved by: Matthew Johnson MD on 07/22/2022 10:24 AM STEPHANIE Station ID: [id number]
== END 2022-07-22 23:59 | disposition home or self-care (01) ==
LOC: DI.WOS 08:00
PROVIDERS: ATTEND Orthopaedic Surgery
DX: S82.252D Displaced comminuted fracture of shaft of left tibia, subsequent encounter for closed fracture with routine healing (principal); S82.832D Other fracture of upper and lower end of left fibula, subsequent encounter for closed fracture with routine healing

== ENCOUNTER 2022-07-23 14:34 | Outpatient (CLI) | payer MEDICARE, OTHER, MEDICAID ==
[2022-07-23 14:41] LABS: BASOPHILS # (AUTO) 0.1 10^3/uL (0.0-0.1); BASOPHILS % (AUTO) 1.3 %; EOSINOPHILS # (AUTO) 0.4 10^3/uL (0.0-0.7); EOSINOPHILS % (AUTO) 9.3 %; HGB - HEMOGLOBIN 13.5 g/dL (12.0-16.0); LYMPHOCYTES # (AUTO) 1.4 10^3/uL (1.5-3.5); LYMPHOCYTES % (AUTO) 30.3 %; MEAN CORPUSCULAR HGB CONC 32.9 g/dL (32.0-36.0); MEAN PLATELET VOLUME 10.3 fL (7.9-10.8); MONOCYTES # (AUTO) 0.4 10^3/uL (0.0-1.0); NEUTROPHILS # (AUTO) 2.3 10^3/uL (1.5-6.6); NEUTROPHILS % (AUTO) 51.1 %; PLT - PLATELET COUNT 118 10^3/uL (130-450); RED BLOOD COUNT 4.36 10^6/uL (4.20-5.40); RED CELL DISTRIBUTION WIDTH 12.4 % (12.0-15.0); WHITE BLOOD COUNT 4.5 x10^3/uL (4.8-10.8)
[2022-07-23 15:07] LABS: T4 (THYROXINE) 7.1 ug/dL (6.09-12.23)
[2022-07-23 15:09] LABS: ALBUMIN 3.1 g/dL (3.2-5.5); ALBUMIN/GLOBULIN RATIO 1.1 (1.0-2.2); ALKALINE PHOSPHATASE 110 IU/L (42-121); ALT ALANINE AMINOTRANSFERASE < 10 IU/L (10-60); AST ASPARTATE AMINOTRANSFERASE 12 IU/L (10-42); BILIRUBIN,TOTAL 0.4 mg/dL (0.2-1.0); BUN - BLOOD UREA NITROGEN 20 mg/dL (6-20); CALCIUM 10.7 mg/dL (8.5-10.3); CARBON DIOXIDE - CO2 29 mmol/L (21-32); CHLORIDE 105 mmol/L (101-111); CHOL/HDL RATIO 2.8 (<4.4); CHOLESTEROL 113 mg/dL; CREATININE 0.7 mg/dL (0.4-1.0); GFR - MDRD 81 (>89); GLUCOSE 127 mg/dL (70-100); HDL CHOLESTEROL 40 mg/dL; POTASSIUM 4.3 mmol/L (3.5-5.0); SODIUM 137 mmol/L (135-145); TOTAL PROTEIN 5.9 g/dL (6.7-8.2); TRIGLYCERIDES 34 mg/dL
[2022-07-23 15:11] LABS: THYROID STIMULATING HORMONE 1.84 uIU/mL (0.34-5.60)
[2022-07-23 15:52] LABS: ESTIMATED AVERAGE GLUCOSE 140 mg/dL (70-100); HEMOGLOBIN A1c% 6.5 % (4.27-6.07)
== END 2022-07-23 14:35 | disposition home or self-care (01) ==
LOC: LAB.R 14:34
PROVIDERS: ATTEND Internal Medicine
DX: E87.6 Hypokalemia (principal); I48.91 Unspecified atrial fibrillation; E03.9 Hypothyroidism, unspecified; D50.9 Iron deficiency anemia, unspecified; E11.9 Type 2 diabetes mellitus without complications
CPT/HCPCS: 80053; 80061; 83036; 83721; 84436; 84443; 85025

== ENCOUNTER 2022-08-19 17:34 | Emergency (ER) | payer MEDICARE, OTHER, MEDICAID ==
[2022-08-19 18:06] LABS: BASOPHILS # (AUTO) 0.1 10^3/uL (0.0-0.1); BASOPHILS % (AUTO) 0.9 %; EOSINOPHILS # (AUTO) 0.3 10^3/uL (0.0-0.7); EOSINOPHILS % (AUTO) 4.7 %; HCT - HEMATOCRIT 41.9 % (37.0-47.0); HGB - HEMOGLOBIN 13.6 g/dL (12.0-16.0); LYMPHOCYTES # (AUTO) 1.1 10^3/uL (1.5-3.5); LYMPHOCYTES % (AUTO) 20.3 %; MEAN CORPUSCULAR HEMOGLOBIN 31.1 pg (27.0-31.0); MEAN CORPUSCULAR HGB CONC 32.5 g/dL (32.0-36.0); MEAN CORPUSCULAR VOLUME 95.7 fL (81.0-99.0); MEAN PLATELET VOLUME 9.6 fL (7.9-10.8); MONOCYTES # (AUTO) 0.5 10^3/uL (0.0-1.0); MONOCYTES % (AUTO) 9.8 %; NEUTROPHILS # (AUTO) 3.4 10^3/uL (1.5-6.6); NEUTROPHILS % (AUTO) 64.3 %; PLT - PLATELET COUNT 144 10^3/uL (130-450); RED BLOOD COUNT 4.38 10^6/uL (4.20-5.40); RED CELL DISTRIBUTION WIDTH 12.6 % (12.0-15.0); WHITE BLOOD COUNT 5.3 x10^3/uL (4.8-10.8)
[2022-08-19 18:19] LABS: ALBUMIN 3.2 g/dL (3.2-5.5); BILIRUBIN,TOTAL 0.5 mg/dL (0.2-1.0); CALCIUM 10.9 mg/dL (8.5-10.3); CREATININE 0.8 mg/dL (0.4-1.0); POTASSIUM 4.5 mmol/L (3.5-5.0); TOTAL PROTEIN 6.4 g/dL (6.7-8.2)
[2022-08-19] MEDS ORDERED: cefTRIAXone 1 GM in SODIUM CHLORIDE 0.9% MINIBAG 100 ML IV STA (18:47)
--- NOTE | 2022-08-19 20:11 | ED Physician Documentation ---
History of Present Illness - Stated complaint Stated Complaint: L KNEE PX - Chief complaint Chief Complaint: Ext Problem - History obtained from History obtained from: Patient, Caregiver - Additonal information Additional information: Patient resides at [facility] and presents today with left knee pain and redness. She was evaluated by her provider there today who was concerned about a possible infection and sent her into the ER. Patient states that when she was turned a couple of days ago her knee hit something and since then it has been bothering her. She does have a The Left Leg for a Prior Distal Tibia Injury Which Has Not Healed despite Being in a Cast for Several Months. She Has Otherwise [place] Well, Denies Any Fever or Chills, No Chest Pain or Difficulty Breathing, No Abdominal Pain, No Nausea Vomiting or Diarrhea. She Does Have Atrial Fibrillation with Slow Ventricular Response. Baseline, No Other New Concerns Today. Information received from her [facility] as well from the patient. Review of Systems Ten Systems: 10 systems reviewed and negative PD PAST MEDICAL HISTORY - Past Medical History Past Medical History: Yes Cardiovascular: Hypertension, Atrial fibrillation Respiratory: None Neuro: Dementia, CVA, TIA Endocrine/Autoimmune: Type 2 diabetes, HyPOthyroidism GI: GERD GAUGE OPERATOR: None : Incontinence, Chronic bladder infection HEENT: Chronic vision loss, Glaucoma Psych: None Musculoskeletal: Osteoarthritis, Other Derm: None - Past Surgical History Past Surgical History: Yes General: Appendectomy /GAUGE OPERATOR: Hysterectomy, Breast implants HEENT: Cataracts - Present Medications Home Medications: Ambulatory Orders Medication Instructions Recorded Confirmed Levothyroxine Sodium [Synthroid] 88 mcg PO DAILY 01/19/13 08/19/22 Latanoprost 0.005% Ophth Drops 1 drop LEFTEYE QPM 06/20/14 08/19/22 [Xalatan Ophth Drops] Hydrocodone/Acetaminophen [[place] 1 tab PO Q6H PRN MDD PAIN 02/02/16 08/19/22 5-325 Tablet] Potassium Chloride 20 meq PO TIDWM 02/02/16 08/19/22 Saccharomyces Boulardii [Florastor] 250 mg PO DAILY 03/20/16 08/19/22 Insulin Lispro [Humalog] 7 unit SUBQ TIDWM 04/09/16 08/19/22 Rivaroxaban [Xarelto] 15 mg PO DAILY 02/22/21 08/19/22 Ferrous Gluconate 1 tab PO DAILY 08/19/21 08/19/22 Oxybutynin [Ditropan] 1 tab PO DAILY 08/19/21 08/19/22 Bisacodyl Supp [Dulcolax Supp] 10 mg TX DAILY PRN 08/19/22 08/19/22 Docusate Sodium [Dss] 250 mg PO Q12H PRN 08/19/22 08/19/22 Furosemide [Lasix] 20 mg PO DAILY 08/19/22 08/19/22 Insulin Glargine [Lantus Solostar] 40 unit SQ DAILY 08/19/22 08/19/22 Senna [Senokot] 17.2 mg PO DAILY PRN 08/19/22 08/19/22 cephALEXin [Keflex] 500 mg PO Q6H #20 cap 08/19/22 polyethylene glycoL 3350 [Miralax] 17 gm PO DAILY PRN 08/19/22 08/19/22 - Allergies Allergies/Adverse Reactions: Allergies Allergy/AdvReac Type Severity Reaction Status Date / Time codeine Allergy Unknown Hallucinati Verified 08/28/21 15:21 ons mites,pollen,horse, cat, Allergy Severe Respiratory Uncoded 08/19/21 14:29 feathers - Social History Does the pt smoke?: No Smoking Status: Never smoker Does the pt drink ETOH?: No Does the pt have substance abuse?: No - Immunizations Immunizations are current?: Yes - POLST Patient has POLST: Yes POLST Status: DNR PD ED PE NORMAL - Vitals Vital signs reviewed: Yes - General General: Alert and oriented X 3, No acute distress, Well developed/nourished - HEENT HEENT: Atraumatic, Moist mucous membranes - Neck Neck: Supple, no meningeal sign - Cardiac Cardiac: Other (Irregular, bradycardic) - Respiratory Respiratory: No respiratory distress, Clear bilaterally - Abdomen Abdomen: Normal bowel sounds, Soft, Non tender, Non distended - Derm Derm: Normal color, Warm and dry, No rash - Extremities Extremities: No deformity, Normal ROM s pain, Other (There is some mild erythema over the left patella it is outlined and has not extended past the outline. It is mildly tender to touch however patient has full flexion and extension of the left knee. There is a cast in place on the lower left leg. No erythema extending into the casted area and he p) - Neuro Neuro: Alert and oriented X 3 Eye Opening: Spontaneous Motor: Obeys Commands Verbal: Oriented GCS Score: 15 Results - Vitals Vitals: Vital Signs - 24 hr 08/19/22 08/19/22 08/19/22 17:43 19:12 19:25 Temperature 36.9 C Heart Rate 47 L Respiratory 16 16 Rate Blood Pressure 154/93 H 162/89 H O2 Saturation 99 98 08/19/22 08/19/22 20:32 20:53 Temperature 36.8 C 36.7 C Heart Rate 52 L Respiratory 16 Rate Blood Pressure 140/81 H O2 Saturation 97 Oxygen O2 Source Room air - Labs Labs: Laboratory Tests 08/19/22 08/19/22 08/19/22 17:57 17:57 17:57 WBC 5.3 RBC 4.38 Hgb 13.6 Hct 41.9 MCV 95.7 MCH 31.1 H MCHC 32.5 RDW 12.6 Plt Count 144 MPV 9.6 Neut # (Auto) 3.4 Lymph # (Auto) 1.1 L Randolph # (Auto) 0.5 Eos # (Auto) 0.3 Baso # (Auto) 0.1 Absolute Nucleated RBC 0.00 Nucleated RBC % 0.0 ESR 24 Sodium 137 Potassium 4.5 Chloride 99 L Carbon Dioxide 31 Anion Gap 7.0 BUN 17 Creatinine 0.8 Estimated GFR (MDRD) 70 L Glucose 187 H Lactic Acid Calcium 10.9 H Total Bilirubin 0.5 AST 13 ALT 10 Alkaline Phosphatase 122 H Total Protein 6.4 L Albumin 3.2 Globulin 3.2 Albumin/Globulin Ratio 1.0 Lipase 19 L 08/19/22 17:57 WBC RBC Hgb Hct MCV MCH MCHC RDW Plt Count MPV Neut # (Auto) Lymph # (Auto) Randolph # (Auto) Eos # (Auto) Baso # (Auto) Absolute Nucleated RBC Nucleated RBC % ESR Sodium Potassium Chloride Carbon Dioxide Anion Gap BUN Creatinine Estimated GFR (MDRD) Glucose Lactic Acid 1.1 Calcium Total Bilirubin AST ALT Alkaline Phosphatase Total Protein Albumin Globulin Albumin/Globulin Ratio Lipase PD MEDICAL DECISION MAKING - ED course Complexity details: re-evaluated patient, considered differential, d/w patient ED course: This is a 76-year-old female with past medical history as noted above who presented with left knee redness and concern for possible infection. Patient's knee is mildly erythematous, mildly tender but she has full range of motion I have low suspicion for a septic joint. There is no palpable fluid collection or skin abrasion. We obtained labs which were largely reassuring, knee x-ray is also stable. I have low suspicion for gout or septic joint in this patient and suspect this is a cellulitis. She was given a dose of ceftriaxone here and will be discharged with Keflex to complete course of treatment. Facility advised to monitor the erythema and return if it is extending beyond the current baseline or if she develops systemic symptoms such as fever, weakness, confusion or other new concerns Or if she has decreased range of motion of the left knee. Departure - Departure Disposition: 01 Home, Self Care Clinical Impression: Cellulitis of left knee Condition: Good Instructions: Cellulitis Dc Prescriptions: cephALEXin [Keflex] 500 mg PO Q6H #20 cap Comments: You presented with Pain and redness in the left knee. There is some redness around the left knee that is likely a skin infection called cellulitis. We obtained labs which are stable and not suggestive of an acute infection inside the joint of the knee. We gave you antibiotics and you should continue the antibiotics as prescribed. If you develop a fever, increased pain or otherwise worsening symptoms, return to the ER.
[2022-08-19 20:53] VITALS: BP 140/81
--- NOTE | 2022-08-20 00:30 | XRAY Report ---
PROCEDURE: Knee 3 View LT INDICATIONS: infection TECHNIQUE: 3 views of the left knee were acquired. COMPARISON: Left tibia and fibula x-ray 07/22/2022. FINDINGS: Bones: Evaluation slightly limited due to suboptimal positioning. No fractures or dislocations. No discrete bony erosions or periosteal reaction. No suspicious bony lesions. Soft tissues: No joint effusion. No suspicious soft tissue calcifications. No definite soft tissue gas or radiopaque foreign bodies. IMPRESSION: 1. No definite radiographic evidence of osteomyelitis. 2. No joint effusion or other findings to suggest septic arthritis. Reviewed by: Evan Owen MD on 08/20/2022 12:38 AM PST Approved by: Evan Owen MD on 08/20/2022 12:38 AM PST Station ID: [id number]
== END 2022-08-19 21:53 | disposition home or self-care (01) ==
LOC: EDUNIT# → ED 17:34
DX: L03.116 Cellulitis of left lower limb (principal)
CPT/HCPCS: 36415; 80053; 83605; 83690; 85025; 85651; 87040; 93005; 96365; 99282

== ENCOUNTER → 2022-08-19 | Outpatient (CLI) | payer MEDICARE, OTHER, MEDICAID | END | disposition critical access hospital (66) | LOC: EMS 17:28 | DX: M25.462 Effusion, left knee (principal); M25.562 Pain in left knee | CPT/HCPCS: A0425; A0429 ==

== ENCOUNTER → 2022-08-19 | Outpatient (CLI) | payer MEDICARE, OTHER, MEDICAID | END | disposition home or self-care (01) | LOC: EMS 21:47 | PROVIDERS: ATTEND Emergency Medicine | DX: L03.116 Cellulitis of left lower limb (principal); Z74.01 Bed confinement status | CPT/HCPCS: A0425; A0428 ==

== ENCOUNTER 2022-08-23 08:00 | Outpatient (CLI) | payer MEDICARE, OTHER, MEDICAID ==
[2022-08-23 19:01] LABS: BASOPHILS # (AUTO) 0.1 10^3/uL (0.0-0.1); BASOPHILS % (AUTO) 1.5 %; EOSINOPHILS # (AUTO) 0.4 10^3/uL (0.0-0.7); EOSINOPHILS % (AUTO) 9.4 %; HGB - HEMOGLOBIN 13.7 g/dL (12.0-16.0); LYMPHOCYTES # (AUTO) 1.3 10^3/uL (1.5-3.5); LYMPHOCYTES % (AUTO) 28.5 %; MEAN CORPUSCULAR HEMOGLOBIN 30.5 pg (27.0-31.0); MEAN CORPUSCULAR HGB CONC 32.6 g/dL (32.0-36.0); MEAN CORPUSCULAR VOLUME 93.5 fL (81.0-99.0); MEAN PLATELET VOLUME 9.7 fL (7.9-10.8); MONOCYTES # (AUTO) 0.4 10^3/uL (0.0-1.0); MONOCYTES % (AUTO) 7.7 %; NEUTROPHILS # (AUTO) 2.4 10^3/uL (1.5-6.6); NEUTROPHILS % (AUTO) 52.9 %; PLT - PLATELET COUNT 161 10^3/uL (130-450); RED BLOOD COUNT 4.49 10^6/uL (4.20-5.40); RED CELL DISTRIBUTION WIDTH 12.4 % (12.0-15.0); WHITE BLOOD COUNT 4.6 x10^3/uL (4.8-10.8)
== END 2022-08-23 23:59 | disposition home or self-care (01) ==
LOC: LAB.R 08:00
PROVIDERS: ATTEND Internal Medicine
DX: L03.90 Cellulitis, unspecified (principal)
CPT/HCPCS: 85025

== ENCOUNTER 2022-09-02 14:35 | Outpatient (CLI) | payer MEDICARE, OTHER, MEDICAID ==
--- NOTE | 2022-09-02 17:18 | XRAY Report ---
PROCEDURE: Tib/Fib LT INDICATIONS: LEFT TIBIA FRACTURE TECHNIQUE: 2 views of the tibia and fibula were acquired. COMPARISON: 07/22/2022 FINDINGS: Bones: Further softening the fracture lines and callus formation noted involving the distal tibial fi bular fractures. No significant bridging callus however. Heterotopic calcification present. Generaliz ed decreased osseous mineralization. Soft tissues: No suspicious soft tissue calcifications or masses. IMPRESSION: 1. Minimal interval remodeling or the prior. Heterotopic calcification without significant bridging c allus Reviewed by: Brandon Huang MD on 09/02/2022 4:17 PM AKST Approved by: Brandon Huang MD on 09/02/2022 4:17 PM AKST Station ID: [id number]
== END 2022-09-02 14:36 | disposition home or self-care (01) ==
LOC: DI.WOS 14:35
PROVIDERS: ATTEND Orthopaedic Surgery
DX: S82.252D Displaced comminuted fracture of shaft of left tibia, subsequent encounter for closed fracture with routine healing (principal)

== ENCOUNTER 2022-11-16 08:32 | Outpatient (CLI) | payer MEDICARE, OTHER, MEDICAID ==
[2022-11-16 09:00] LABS: BASOPHILS # (AUTO) 0.1 10^3/uL (0.0-0.1); BASOPHILS % (AUTO) 1.2 %; EOSINOPHILS # (AUTO) 0.4 10^3/uL (0.0-0.7); EOSINOPHILS % (AUTO) 8.7 %; HCT - HEMATOCRIT 43.4 % (37.0-47.0); HGB - HEMOGLOBIN 14.2 g/dL (12.0-16.0); LYMPHOCYTES # (AUTO) 1.5 10^3/uL (1.5-3.5); LYMPHOCYTES % (AUTO) 29.4 %; MEAN CORPUSCULAR HEMOGLOBIN 30.7 pg (27.0-31.0); MEAN CORPUSCULAR HGB CONC 32.7 g/dL (32.0-36.0); MEAN CORPUSCULAR VOLUME 93.9 fL (81.0-99.0); MEAN PLATELET VOLUME 9.8 fL (7.9-10.8); MONOCYTES # (AUTO) 0.4 10^3/uL (0.0-1.0); NEUTROPHILS # (AUTO) 2.6 10^3/uL (1.5-6.6); NEUTROPHILS % (AUTO) 52.5 %; PLT - PLATELET COUNT 147 10^3/uL (130-450); RED BLOOD COUNT 4.62 10^6/uL (4.20-5.40); RED CELL DISTRIBUTION WIDTH 12.4 % (12.0-15.0)
[2022-11-16 09:39] LABS: % IRON SATURATION 27 % (20-50); ALBUMIN 3.5 g/dL (3.2-5.5); ALKALINE PHOSPHATASE 119 IU/L (42-121); ALT ALANINE AMINOTRANSFERASE < 10 IU/L (10-60); AST ASPARTATE AMINOTRANSFERASE 16 IU/L (10-42); BILIRUBIN,TOTAL 0.4 mg/dL (0.2-1.0); BUN - BLOOD UREA NITROGEN 18 mg/dL (6-20); CALCIUM 11.2 mg/dL (8.5-10.3); CARBON DIOXIDE - CO2 31 mmol/L (21-32); CHLORIDE 102 mmol/L (101-111); CREATININE 0.8 mg/dL (0.4-1.0); GFR - MDRD 70 (>89); GLUCOSE 108 mg/dL (70-100); IRON 101 ug/dL (28-170); MAGNESIUM 2.3 mg/dL (1.7-2.8); PHOSPHORUS 2.5 mg/dL (2.5-4.6); POTASSIUM 4.2 mmol/L (3.5-5.0); SODIUM 137 mmol/L (135-145); TOTAL IRON BINDING CAPACITY 377 ug/dL (250-450); TOTAL PROTEIN 7.1 g/dL (6.7-8.2); TRANSFERRIN 269 mg/dL (192-382)
[2022-11-16 09:42] LABS: THYROID STIMULATING HORMONE 2.01 uIU/mL (0.34-5.60)
[2022-11-16 09:43] LABS: FREE T4 (FREE THYROXINE) 0.95 ng/dL (0.58-1.64)
[2022-11-16 09:47] LABS: FERRITIN 39.4 ng/mL (11.0-306.8)
[2022-11-16 14:15] LABS: ESTIMATED AVERAGE GLUCOSE 143 mg/dL (70-100); HEMOGLOBIN A1c% 6.6 % (4.27-6.07)
== END 2022-11-16 23:59 | disposition home or self-care (01) ==
LOC: LAB.R 08:32
DX: E11.9 Type 2 diabetes mellitus without complications (principal); D50.9 Iron deficiency anemia, unspecified; E03.9 Hypothyroidism, unspecified; E56.9 Vitamin deficiency, unspecified
CPT/HCPCS: 80053; 82728; 83036; 83540; 83735; 84100; 84439; 84443; 84466; 85025

== ENCOUNTER 2022-12-29 14:51 | Outpatient (CLI) | payer MEDICARE, OTHER, MEDICAID ==
[2022-12-29 14:56] LABS: BASOPHILS % (AUTO) 0.9 %; EOSINOPHILS # (AUTO) 0.2 10^3/uL (0.0-0.7); EOSINOPHILS % (AUTO) 4.8 %; HCT - HEMATOCRIT 39.2 % (37.0-47.0); LYMPHOCYTES # (AUTO) 1.2 10^3/uL (1.5-3.5); LYMPHOCYTES % (AUTO) 26.3 %; MEAN CORPUSCULAR HEMOGLOBIN 31.6 pg (27.0-31.0); MEAN CORPUSCULAR HGB CONC 33.2 g/dL (32.0-36.0); MEAN CORPUSCULAR VOLUME 95.4 fL (81.0-99.0); MEAN PLATELET VOLUME 10.4 fL (7.9-10.8); MONOCYTES # (AUTO) 0.4 10^3/uL (0.0-1.0); MONOCYTES % (AUTO) 9.4 %; NEUTROPHILS # (AUTO) 2.7 10^3/uL (1.5-6.6); NEUTROPHILS % (AUTO) 58.6 %; PLT - PLATELET COUNT 181 10^3/uL (130-450); RED BLOOD COUNT 4.11 10^6/uL (4.20-5.40); RED CELL DISTRIBUTION WIDTH 12.8 % (12.0-15.0); WHITE BLOOD COUNT 4.6 x10^3/uL (4.8-10.8)
== END 2022-12-29 14:52 | disposition home or self-care (01) ==
LOC: LAB.R 14:51
PROVIDERS: ATTEND Registered Nurse
DX: D50.9 Iron deficiency anemia, unspecified (principal)
CPT/HCPCS: 85025

== ENCOUNTER 2023-02-07 08:00 | Outpatient (CLI) | payer MEDICARE, OTHER, MEDICAID ==
[2023-02-07 17:15] LABS: CALCIUM 10.9 mg/dL (8.5-10.3); CREATININE 0.8 mg/dL (0.4-1.0); POTASSIUM 4.6 mmol/L (3.5-5.0)
== END 2023-02-07 23:59 | disposition home or self-care (01) ==
LOC: LAB.R 08:00
PROVIDERS: ATTEND Registered Nurse
DX: E87.6 Hypokalemia (principal)
CPT/HCPCS: 80048

== ENCOUNTER 2023-09-30 15:40 | Outpatient (CLI) | payer MEDICARE, OTHER, MEDICAID ==
[2023-09-30 15:57] LABS: BASOPHILS # (AUTO) 0.1 10^3/uL (0.0-0.1); BASOPHILS % (AUTO) 1.3 %; EOSINOPHILS # (AUTO) 0.2 10^3/uL (0.0-0.7); EOSINOPHILS % (AUTO) 6.1 %; HCT - HEMATOCRIT 43.7 % (37.0-47.0); HGB - HEMOGLOBIN 14.1 g/dL (12.0-16.0); LYMPHOCYTES # (AUTO) 1.1 10^3/uL (1.5-3.5); LYMPHOCYTES % (AUTO) 27.7 %; MEAN CORPUSCULAR HEMOGLOBIN 31.3 pg (27.0-31.0); MEAN CORPUSCULAR HGB CONC 32.3 g/dL (32.0-36.0); MEAN CORPUSCULAR VOLUME 97.1 fL (81.0-99.0); MEAN PLATELET VOLUME 10.6 fL (7.9-10.8); MONOCYTES # (AUTO) 0.4 10^3/uL (0.0-1.0); MONOCYTES % (AUTO) 9.9 %; NEUTROPHILS # (AUTO) 2.2 10^3/uL (1.5-6.6); NEUTROPHILS % (AUTO) 54.7 %; PLT - PLATELET COUNT 122 10^3/uL (130-450); RED CELL DISTRIBUTION WIDTH 12.4 % (12.0-15.0); WHITE BLOOD COUNT 3.9 x10^3/uL (4.8-10.8)
[2023-09-30 16:23] LABS: ALBUMIN 3.3 g/dL (3.2-5.5)
[2023-09-30 16:36] LABS: ALBUMIN/GLOBULIN RATIO 1.4 (1.0-2.2); BILIRUBIN,TOTAL 0.5 mg/dL (0.2-1.0); CALCIUM 10.8 mg/dL (8.5-10.3); CREATININE 0.7 mg/dL (0.6-1.3); POTASSIUM 4.9 mmol/L (3.5-4.5); TOTAL PROTEIN 5.7 g/dL (6.4-8.9)
== END 2023-09-30 15:41 | disposition home or self-care (01) ==
LOC: LAB.R 15:40
PROVIDERS: ATTEND Registered Nurse
DX: I10 Essential (primary) hypertension (principal); D50.9 Iron deficiency anemia, unspecified; Z79.4 Long term (current) use of insulin
CPT/HCPCS: 80053; 83540; 85025

== ENCOUNTER 2023-10-13 15:07 | Outpatient (CLI) | payer MEDICARE, OTHER, MEDICAID ==
[2023-10-13 15:15] LABS: BASOPHILS % (AUTO) 0.9 %; EOSINOPHILS # (AUTO) 0.3 10^3/uL (0.0-0.7); EOSINOPHILS % (AUTO) 6.6 %; HCT - HEMATOCRIT 43.8 % (37.0-47.0); HGB - HEMOGLOBIN 13.9 g/dL (12.0-16.0); LYMPHOCYTES % (AUTO) 23.2 %; MEAN CORPUSCULAR HEMOGLOBIN 31.4 pg (27.0-31.0); MEAN CORPUSCULAR HGB CONC 31.7 g/dL (32.0-36.0); MEAN CORPUSCULAR VOLUME 98.9 fL (81.0-99.0); MEAN PLATELET VOLUME 9.9 fL (7.9-10.8); MONOCYTES # (AUTO) 0.4 10^3/uL (0.0-1.0); MONOCYTES % (AUTO) 9.3 %; NEUTROPHILS # (AUTO) 2.6 10^3/uL (1.5-6.6); PLT - PLATELET COUNT 164 10^3/uL (130-450); RED BLOOD COUNT 4.43 10^6/uL (4.20-5.40); RED CELL DISTRIBUTION WIDTH 12.4 % (12.0-15.0); WHITE BLOOD COUNT 4.4 x10^3/uL (4.8-10.8)
[2023-10-13 15:42] LABS: ALBUMIN 3.3 g/dL (3.2-5.5); ALBUMIN/GLOBULIN RATIO 1.2 (1.0-2.2); BILIRUBIN,TOTAL 0.5 mg/dL (0.2-1.0); CALCIUM 10.7 mg/dL (8.5-10.3); CREATININE 0.8 mg/dL (0.6-1.3); POTASSIUM 4.4 mmol/L (3.5-4.5)
[2023-10-13 15:48] LABS: THYROID STIMULATING HORMONE 1.43 uIU/mL (0.34-5.60)
[2023-10-13 15:54] LABS: FERRITIN 26.8 ng/mL (11.0-306.8)
[2023-10-13 23:25] LABS: ESTIMATED AVERAGE GLUCOSE 140 mg/dL (70-100); HEMOGLOBIN A1c% 6.5 % (4.27-6.07)
== END 2023-10-13 15:08 | disposition home or self-care (01) ==
LOC: LAB.R 15:07
PROVIDERS: ATTEND Registered Nurse
DX: E87.6 Hypokalemia (principal); E03.9 Hypothyroidism, unspecified; D50.9 Iron deficiency anemia, unspecified; I48.91 Unspecified atrial fibrillation; E11.8 Type 2 diabetes mellitus with unspecified complications
CPT/HCPCS: 80053; 82728; 83036; 84443; 85025

== ENCOUNTER 2023-11-30 08:00 | Outpatient (CLI) | payer MEDICARE, OTHER, MEDICAID ==
[2023-11-30 16:37] LABS: BASOPHILS # (AUTO) 0.1 10^3/uL (0.0-0.1); BASOPHILS % (AUTO) 1.1 %; EOSINOPHILS # (AUTO) 0.3 10^3/uL (0.0-0.7); EOSINOPHILS % (AUTO) 5.8 %; HGB - HEMOGLOBIN 13.5 g/dL (12.0-16.0); LYMPHOCYTES # (AUTO) 1.1 10^3/uL (1.5-3.5); LYMPHOCYTES % (AUTO) 22.4 %; MEAN CORPUSCULAR HGB CONC 31.4 g/dL (32.0-36.0); MEAN CORPUSCULAR VOLUME 98.9 fL (81.0-99.0); MEAN PLATELET VOLUME 10.2 fL (7.9-10.8); MONOCYTES # (AUTO) 0.4 10^3/uL (0.0-1.0); MONOCYTES % (AUTO) 8.1 %; NEUTROPHILS # (AUTO) 2.9 10^3/uL (1.5-6.6); NEUTROPHILS % (AUTO) 62.4 %; PLT - PLATELET COUNT 155 10^3/uL (130-450); RED BLOOD COUNT 4.35 10^6/uL (4.20-5.40); RED CELL DISTRIBUTION WIDTH 12.8 % (12.0-15.0); WHITE BLOOD COUNT 4.7 x10^3/uL (4.8-10.8)
[2023-11-30 16:54] LABS: ALBUMIN 3.3 g/dL (3.2-5.5); ALBUMIN/GLOBULIN RATIO 1.3 (1.0-2.2); BILIRUBIN,TOTAL 0.4 mg/dL (0.2-1.0); CREATININE 0.7 mg/dL (0.6-1.3); POTASSIUM 4.6 mmol/L (3.5-4.5); TOTAL PROTEIN 5.8 g/dL (6.4-8.9)
== END 2023-11-30 23:59 | disposition home or self-care (01) ==
LOC: LAB.R 08:00
PROVIDERS: ATTEND Registered Nurse
DX: E11.9 Type 2 diabetes mellitus without complications (principal); E63.9 Nutritional deficiency, unspecified; E87.6 Hypokalemia
CPT/HCPCS: 80053; 83540; 85025

== ENCOUNTER 2023-12-30 22:00 | Outpatient (CLI) | payer MEDICARE, OTHER, MEDICAID ==
[2023-12-31 07:19] LABS: BASOPHILS % (AUTO) 0.8 %; EOSINOPHILS # (AUTO) 0.2 10^3/uL (0.0-0.7); EOSINOPHILS % (AUTO) 4.9 %; HCT - HEMATOCRIT 43.4 % (37.0-47.0); LYMPHOCYTES # (AUTO) 1.7 10^3/uL (1.5-3.5); LYMPHOCYTES % (AUTO) 35.3 %; MEAN CORPUSCULAR HEMOGLOBIN 31.4 pg (27.0-31.0); MEAN CORPUSCULAR HGB CONC 32.3 g/dL (32.0-36.0); MEAN CORPUSCULAR VOLUME 97.3 fL (81.0-99.0); MEAN PLATELET VOLUME 10.5 fL (7.9-10.8); MONOCYTES # (AUTO) 0.5 10^3/uL (0.0-1.0); MONOCYTES % (AUTO) 10.7 %; NEUTROPHILS # (AUTO) 2.3 10^3/uL (1.5-6.6); NEUTROPHILS % (AUTO) 48.1 %; PLT - PLATELET COUNT 156 10^3/uL (130-450); RED BLOOD COUNT 4.46 10^6/uL (4.20-5.40); RED CELL DISTRIBUTION WIDTH 12.3 % (12.0-15.0); WHITE BLOOD COUNT 4.9 x10^3/uL (4.8-10.8)
== END 2023-12-30 22:01 | disposition home or self-care (01) ==
LOC: LAB.R 22:00
PROVIDERS: ATTEND Registered Nurse
DX: E03.9 Hypothyroidism, unspecified (principal)
CPT/HCPCS: 80053; 82728; 85025

== ENCOUNTER 2023-12-31 12:48 | Outpatient (CLI) | payer MEDICARE, OTHER, MEDICAID | END 2023-12-31 12:49 | disposition home or self-care (01) | LOC: LAB.R 12:48 | PROVIDERS: ATTEND Registered Nurse | DX: E87.6 Hypokalemia (principal); D50.9 Iron deficiency anemia, unspecified; E63.9 Nutritional deficiency, unspecified; D69.6 Thrombocytopenia, unspecified; I10 Essential (primary) hypertension | CPT/HCPCS: 80053; 82728 ==

== ENCOUNTER 2024-01-11 08:02 | Outpatient (CLI) | payer MEDICARE, OTHER, MEDICAID ==
[2024-01-11 08:16] LABS: BASOPHILS % (AUTO) 0.8 %; EOSINOPHILS # (AUTO) 0.3 10^3/uL (0.0-0.7); EOSINOPHILS % (AUTO) 7.3 %; HCT - HEMATOCRIT 43.4 % (37.0-47.0); HGB - HEMOGLOBIN 13.8 g/dL (12.0-16.0); LYMPHOCYTES # (AUTO) 1.5 10^3/uL (1.5-3.5); LYMPHOCYTES % (AUTO) 38.1 %; MEAN CORPUSCULAR HEMOGLOBIN 30.7 pg (27.0-31.0); MEAN CORPUSCULAR HGB CONC 31.8 g/dL (32.0-36.0); MEAN CORPUSCULAR VOLUME 96.7 fL (81.0-99.0); MEAN PLATELET VOLUME 10.3 fL (7.9-10.8); MONOCYTES # (AUTO) 0.4 10^3/uL (0.0-1.0); MONOCYTES % (AUTO) 9.8 %; NEUTROPHILS # (AUTO) 1.7 10^3/uL (1.5-6.6); PLT - PLATELET COUNT 144 10^3/uL (130-450); RED BLOOD COUNT 4.49 10^6/uL (4.20-5.40); RED CELL DISTRIBUTION WIDTH 12.2 % (12.0-15.0)
[2024-01-11 08:40] LABS: ALBUMIN 3.4 g/dL (3.2-5.5); ALBUMIN/GLOBULIN RATIO 1.4 (1.0-2.2); BILIRUBIN,TOTAL 0.4 mg/dL (0.2-1.0); CALCIUM 11.1 mg/dL (8.5-10.3); CREATININE 0.7 mg/dL (0.6-1.3); POTASSIUM 4.2 mmol/L (3.5-4.5); TOTAL PROTEIN 5.8 g/dL (6.4-8.9)
[2024-01-11 08:51] LABS: THYROID STIMULATING HORMONE 2.18 uIU/mL (0.34-5.60)
[2024-01-11 08:55] LABS: FERRITIN 25.2 ng/mL (11.0-306.8)
[2024-01-11 10:18] LABS: ESTIMATED AVERAGE GLUCOSE 137 mg/dL (70-100); HEMOGLOBIN A1c% 6.4 % (4.27-6.07)
== END 2024-01-11 08:03 | disposition home or self-care (01) ==
LOC: LAB 08:02 → LAB.R 08:03
PROVIDERS: ATTEND Registered Nurse
DX: E87.6 Hypokalemia (principal); D50.9 Iron deficiency anemia, unspecified; E63.9 Nutritional deficiency, unspecified; D69.6 Thrombocytopenia, unspecified; I10 Essential (primary) hypertension
CPT/HCPCS: 80053; 82728; 83036; 83540; 84439; 84443; 84466; 85025

== ENCOUNTER 2024-04-19 08:00 | Outpatient (CLI) | payer MEDICARE, OTHER, MEDICAID ==
[2024-04-19 22:09] LABS: ESTIMATED AVERAGE GLUCOSE 134 mg/dL (70-100); HEMOGLOBIN A1c% 6.3 % (4.27-6.07)
== END 2024-04-19 23:59 | disposition home or self-care (01) ==
LOC: LAB.R 08:00
PROVIDERS: ATTEND Family Medicine
DX: E11.8 Type 2 diabetes mellitus with unspecified complications (principal); Z79.4 Long term (current) use of insulin
CPT/HCPCS: 83036

== ENCOUNTER 2024-05-30 08:00 | Outpatient (CLI) | payer MEDICARE, OTHER, MEDICAID ==
[2024-05-30 15:41] LABS: BASOPHILS # (AUTO) 0.1 10^3/uL (0.0-0.1); BASOPHILS % (AUTO) 0.9 %; EOSINOPHILS # (AUTO) 0.3 10^3/uL (0.0-0.7); EOSINOPHILS % (AUTO) 6.1 %; HCT - HEMATOCRIT 44.9 % (37.0-47.0); HGB - HEMOGLOBIN 14.1 g/dL (12.0-16.0); LYMPHOCYTES # (AUTO) 1.1 10^3/uL (1.5-3.5); LYMPHOCYTES % (AUTO) 20.9 %; MEAN CORPUSCULAR HEMOGLOBIN 30.9 pg (27.0-31.0); MEAN CORPUSCULAR HGB CONC 31.4 g/dL (32.0-36.0); MEAN CORPUSCULAR VOLUME 98.5 fL (81.0-99.0); MONOCYTES # (AUTO) 0.5 10^3/uL (0.0-1.0); MONOCYTES % (AUTO) 8.3 %; NEUTROPHILS # (AUTO) 3.5 10^3/uL (1.5-6.6); NEUTROPHILS % (AUTO) 63.6 %; PLT - PLATELET COUNT 143 10^3/uL (130-450); RED BLOOD COUNT 4.56 10^6/uL (4.20-5.40); RED CELL DISTRIBUTION WIDTH 12.4 % (12.0-15.0); WHITE BLOOD COUNT 5.5 x10^3/uL (4.8-10.8)
[2024-05-30 16:55] LABS: ALBUMIN 3.3 g/dL (3.2-5.5); ALBUMIN/GLOBULIN RATIO 1.4 (1.0-2.2); BILIRUBIN,TOTAL 0.5 mg/dL (0.2-1.0); CALCIUM 10.5 mg/dL (8.5-10.3); CREATININE 0.8 mg/dL (0.6-1.3); POTASSIUM 4.7 mmol/L (3.5-4.5); TOTAL PROTEIN 5.6 g/dL (6.4-8.9)
== END 2024-05-30 23:59 | disposition home or self-care (01) ==
LOC: LAB.R 08:00
PROVIDERS: ATTEND Family Medicine
DX: I48.91 Unspecified atrial fibrillation (principal); E87.6 Hypokalemia; D50.9 Iron deficiency anemia, unspecified
CPT/HCPCS: 80053; 83540; 85025